=== PATIENT | female | born 1935 | race Caucasian/White ===

== ENCOUNTER 2019-04-02 16:34 | Inpatient (IN) | payer MEDICARE, MEDICAID ==
[~2019-04-02] VITALS: Ht 157.5 cm; Wt 71.2 kg
[~2019-04-02 16:34] MED LIST: AMLO5TAB10 PO; ATOR40TA59 PO; CELE200C PO; CLON0.1T12 PO; CLOP75TA PO; ERGO500027 PO; FERR325T14 PO; HYDR-2765 PO; HYDR-2869 PO; LISI-334 PO; MULT1CAP15 PO; NAPR-677 PO; POLY17PO29 PO; SENN-22 PO; WARF-78 PO
--- NOTE | 2019-04-02 17:18 | PHYS DOC ---
Past Medical History Smoking Status: Never Smoker Adult General Chief Complaint Chief Complaint: LOWER EXT PAIN HPI HPI Patient is a 83 year old female who presents with a two-day she woke up and her left leg was swollen and purple mottled in color. Patient rates her pain a 5 out of 10. She states the whole leg is aching. Review of Systems Review of Systems Musculoskeletal: Left leg pain and swelling. Denies back pain or joint pain [] All other systems were reviewed and found to be within normal limits, except as documented in this note. Allergies Allergies Allergies Coded Allergies Type Severity Reaction Last Updated Verified meperidine Adverse Reaction Intermediate Nausea and Vomiting 04/28/15 Yes Physical Exam Physical Exam Constitutional: Well developed, well nourished, no acute distress, non-toxic appearance. [] HENT: Normocephalic, atraumatic, bilateral external ears normal, oropharynx moist, no oral exudates, nose normal. [] Eyes: PERRLA, EOMI, conjunctiva normal, no discharge. [] Neck: Normal range of motion, no tenderness, supple, no stridor. [] Cardiovascular:Heart rate regular rhythm, no murmur [] Lungs & Thorax: Bilateral breath sounds clear to auscultation [] Abdomen: Bowel sounds normal, soft, no tenderness, no masses, no pulsatile ma sses. [] Skin: Left leg purple and mottled. Bilateral lower feet cold. Warm, dry, no erythema, no rash. [] Back: No tenderness, no CVA tenderness. [] Extremities: Left leg tenderness, no cyanosis, no clubbing, ROM intact, no edema. [] Neurologic: Alert and oriented X 3, normal motor function, normal sensory fun ction, no focal deficits noted. [] Psychologic: Affect normal, judgement normal, mood normal. [] Current Patient Data Vital Signs Vital Signs Date Time Temp Pulse Resp B/P (MAP) Pulse Ox O2 Delivery O2 Flow Rate FiO2 04/02/19 19:02 60 16 181/77 (111) 98 Room Air 04/02/19 17:10 97.8 97.8 Lab Values Laboratory Tests Test 04/02/19 17:34 White Blood Count 6.2 x10^3/uL (4.0-11.0) Red Blood Count 4.58 x10^6/uL (3.50-5.40) Hemoglobin 13.6 g/dL (12.0-15.5) Hematocrit 41.0 % (36.0-47.0) Mean Corpuscular Volume 90 fL (79-100) Mean Corpuscular Hemoglobin 30 pg (25-35) Mean Corpuscular Hemoglobin Concent 33 g/dL (31-37) Red Cell Distribution Width 14.3 % (11.5-14.5) Platelet Count 190 x10^3/uL (140-400) Neutrophils (%) (Auto) 70 % (31-73) Lymphocytes (%) (Auto) 19 % (24-48) L Monocytes (%) (Auto) 9 % (0-9) Eosinophils (%) (Auto) 1 % (0-3) Basophils (%) (Auto) 1 % (0-3) Neutrophils # (Auto) 4.3 x10^3/uL (1.8-7.7) Lymphocytes # (Auto) 1.2 x10^3/uL (1.0-4.8) Monocytes # (Auto) 0.6 x10^3/uL (0.0-1.1) Eosinophils # (Auto) 0.1 x10^3/uL (0.0-0.7) Basophils # (Auto) 0.1 x10^3/uL (0.0-0.2) Prothrombin Time 12.6 SEC (11.7-14.0) Prothrombin Time INR 1.0 (0.8-1.1) Sodium Level 139 mmol/L (136-145) Potassium Level 4.1 mmol/L (3.5-5.1) Chloride Level 103 mmol/L (98-107) Carbon Dioxide Level 26 mmol/L (21-32) Anion Gap 10 (6-14) Blood Urea Nitrogen 23 mg/dL (7-20) H Creatinine 1.1 mg/dL (0.6-1.0) H Estimated GFR (Cockcroft-Gault) 47.7 BUN/Creatinine Ratio 21 (6-20) H Glucose Level 109 mg/dL (70-99) H Calcium Level 10.3 mg/dL (8.5-10.1) H Total Bilirubin 0.6 mg/dL (0.2-1.0) Aspartate Amino Transferase (AST) 20 U/L (15-37) Alanine Aminotransferase (ALT) 9 U/L (14-59) L Alkaline Phosphatase 107 U/L (46-116) Total Protein 7.8 g/dL (6.4-8.2) Albumin 3.2 g/dL (3.4-5.0) L Albumin/Globulin Ratio 0.7 (1.0-1.7) L Laboratory Tests 04/02/19 17:34 Laboratory Tests 04/02/19 17:34 EKG EKG [] Radiology/Procedures Radiology/Procedures [] Impressions: [facility] [address] [place] [address] IMAGING REPORT Signed PATIENT: GEORGE DUQUE ACCOUNT: [id number] : 1935 LOCATION: ER AGE: 83 SEX: F EXAM STATUS: REG ER ORD. PHYSICIAN: ALICJA FORTUNE APRN REASON: leg swelling, discolration PROCEDURE: ARTERIAL STUDY LOWER EXT BI LOWER EXTREMITY DUPLEX ARTERY ULTRASOUND Indication: Leg swelling and discoloration Comparison: None. Procedure: Arterial 2D and duplex images are obtained of the lower extremity arteries. Findings: Biphasic or triphasic waveforms are present in the common femoral artery, superficial femoral artery, popliteal artery, anterior tibial artery, posterior tibial artery and dorsalis pedis artery. The distal posterior tibial artery was not well visualized due to mural calcification. IMPRESSION: No hemodynamically significant stenosis. EXAM: Bilateral lower extremity venous Doppler. HISTORY: Leg swelling and discoloration COMPARISON: None. FINDINGS: Grayscale and Doppler analysis of the both lower extremity deep venous systems was performed with graded compression and augmentation. The common femoral, greater saphenous, superficial femoral, popliteal and calf veins were assessed. There is evidence of occlusive deep venous thrombosis. IMPRESSION: 1. Occlusive DVT in the entire left lower extremity venous system from the common femoral vein down to the segmental and visualized calf veins. FOR INTERNAL CODING PURPOSES Critical result: Findings discussed with ALICJA FORTUNE at 04/02/2019 8:04 PM. RESULT CODE: (C) Electronically signed by: Karma Jacob MD (04/02/2019 8:04 PM) [id number] DICTATED and SIGNED BY: KARMA JACOB MD DATE: 04/02/192003 Course & Med Decision Making Course & Med Decision Making Pertinent Labs and Imaging studies reviewed. (See chart for details) Patient denies blood thinners, injury, fall, shortness of breath, chest pain, headache, dizziness, visual changes, weakness, numbness or tingling, abdominal pain, nausea, vomiting, fevers. Patient's left leg is 3+ edematous to mid thigh to foot. Bilateral feet are cold to touch. Right leg is normal skin toned. Effected leg skin in blanchable and pedal pulse is felt. The leg is purple and mottled in color. 3 second cap refill. Lungs are clear to auscultation. When getting patient into the bed she was unable to get herself into the bed. 2 nurses had to get the patient into the bed. Patient states she uses a wheel chair often but states she was using a walker some 2 days ago before this leg swelling and pain occurred. Patient is alert and oriented. Speaks in full clear sentences. PERRLA. Patient is a poor historian. IMPRESSION: 1. Occlusive DVT in the entire left lower extremity venous system from the common femoral vein down to the segmental and visualized calf veins. Patient admitted by Dr Still. Heparin started per Heparin protocol. [] Dragon Disclaimer Dragon Disclaimer This electronic medical record was generated, in whole or in part, using a voice recognition dictation system. Departure Departure Impression: Primary Impression: DVT (deep venous thrombosis) Disposition: ADMITTED INPATIENT Admitting Physician: HIMGissel Condition: STABLE Referrals: UNKNOWN PCP NAME (PCP) Problem Qualifiers Primary Impression: DVT (deep venous thrombosis) DVT location: lower extremity Affected thrombotic vein of extremity: femoral Chronicity: acute Laterality: left Qualified Codes: I82.412 - Acute embolism and thrombosis of left femoral vein ALICJA FORTUNE STRIPING MACHINE OPERATOR Apr 02, 2019 17:18
[2019-04-02 17:41] LABS: BASO # 0.1 x10^3/uL (0.0-0.2); BASO % 1 % (0-3); EOS # 0.1 x10^3/uL (0.0-0.7); EOS % 1 % (0-3); HEMOGLOBIN 13.6 g/dL (12.0-15.5); LYMPH # 1.2 x10^3/uL (1.0-4.8); LYMPH % 19 % (24-48); MEAN CORPUSCULAR HEMOGLOBIN 30 pg (25-35); MEAN CORPUSCULAR HGB CONC 33 g/dL (31-37); MEAN CORPUSCULAR VOLUME 90 fL (79-100); MONO # 0.6 x10^3/uL (0.0-1.1); MONO % 9 % (0-9); NEUT # 4.3 x10^3/uL (1.8-7.7); NEUT % 70 % (31-73); PLATELET COUNT 190 x10^3/uL (140-400); RED BLOOD COUNT 4.58 x10^6/uL (3.50-5.40); RED CELL DISTRIBUTION WIDTH 14.3 % (11.5-14.5); WHITE BLOOD COUNT 6.2 x10^3/uL (4.0-11.0)
[2019-04-02 17:49] LABS: PROTHROMBIN TIME PATIENT 12.6 SEC (11.7-14.0)
[2019-04-02 18:12] LABS: ALBUMIN 3.2 g/dL (3.4-5.0); ALBUMIN/GLOBULIN RATIO 0.7 (1.0-1.7); CALCIUM 10.3 mg/dL (8.5-10.1); CREATININE 1.1 mg/dL (0.6-1.0); GFR 47.7; POTASSIUM 4.1 mmol/L (3.5-5.1); TOTAL BILIRUBIN 0.6 mg/dL (0.2-1.0); TOTAL PROTEIN 7.8 g/dL (6.4-8.2)
--- NOTE | 2019-04-02 20:07 | RAD ---
LOWER EXTREMITY DUPLEX ARTERY ULTRASOUND Indication: Leg swelling and discoloration Comparison: None. Procedure: Arterial 2D and duplex images are obtained of the lower extremity arteries. Findings: Biphasic or triphasic waveforms are present in the common femoral artery, superficial femoral artery, popliteal artery, anterior tibial artery, posterior tibial artery and dorsalis pedis artery. The distal posterior tibial artery was not well visualized due to mural calcification. IMPRESSION: No hemodynamically significant stenosis. EXAM: Bilateral lower extremity venous Doppler. HISTORY: Leg swelling and discoloration COMPARISON: None. FINDINGS: Grayscale and Doppler analysis of the both lower extremity deep venous systems was performed with graded compression and augmentation. The common femoral, greater saphenous, superficial femoral, popliteal and calf veins were assessed. There is evidence of occlusive deep venous thrombosis. IMPRESSION: 1. Occlusive DVT in the entire left lower extremity venous system from the common femoral vein down to the segmental and visualized calf veins. FOR INTERNAL CODING PURPOSES Critical result: Findings discussed with ALICJA FORTUNE at 04/02/2019 8:04 PM. RESULT CODE: (C) Electronically signed by: Essie Jacob MD (04/02/2019 8:04 PM) [id number]
[2019-04-02] MEDS ORDERED: HEPARIN for IV BOLUS 10,000 UNIT/10 ML VIAL. IV PRN ×2 (20:15)
[2019-04-02] MEDS ORDERED: fentaNYL PF VIAL 100 MCG/2 ML VIAL IV PRN (20:30)
[2019-04-02] MEDS ORDERED: ONDANSETRON PF 4 MG/2 ML VIAL. IV PRN (20:30)
[2019-04-02] MEDS ORDERED: HEPARIN for IV BOLUS 10,000 UNIT/10 ML VIAL. IV ONE (21:15)
[2019-04-02] MEDS: HEPARIN 25,000UTS/250ML PREMIX 250 ML IV PRN (21:41)
--- NOTE | 2019-04-02 22:30 | NUR ---
A 83 Y.O. FEMALE ADMITTED WITH DVT TO LEFT LEG, HEPARIN GTT INFUSING PER ORDER. PT ALERT WITH SOME FORGETFULNESS. PT ASSESSED, ADMISSION PACKET GIVEN. PLAN OF CARE EXPLAINED TO PT. PT LEFT LEG NOTED TO BE RED, SWOLLEN WITH SOME DISCOLORATION, POSITIVE PEDAL AND TIBIAL PULSES NOTED TO BILAT LWR EXTR. CONSULT CALLED TO DR BEYER. PT C/O BURNING WITH URINATION DR CORONA NOTIFIED. CALL LIGHT IN PLACE WILL CONT TO MONITOR PT STATUS AND SAFETY. PMRN
[2019-04-02 22:55] VITALS: BP 206/88
[2019-04-02] MEDS ORDERED: FERROUS SULFATE 325 MG TABLET. PO PRN (23:30)
[2019-04-02] MEDS ORDERED: CIPROFLOXACIN HCL 250 MG TABLET. PO ONE (23:45)
[2019-04-02] MEDS ORDERED: hydrALAZINE 20 MG/ML VIAL. IVP PRN (23:45)
[2019-04-02] MEDS ORDERED: CELECOXIB 100 MG CAPSULE. PO ONE (23:45)
[2019-04-03 03:44] VITALS: BP 124/60
[2019-04-03 07:11] VITALS: BP 137/65
[2019-04-03] MEDS: MULTIVITAMIN with MINERAL TABLET. PO SCH (08:47)
[2019-04-03] MEDS: SENNOSIDES/DOCUSATE 8.6/50MG TABLET. PO SCH (08:47)
[2019-04-03] MEDS: amLODIPine BESYLATE 5 MG TABLET PO SCH ×2 (08:47→21:04)
[2019-04-03] MEDS: CIPROFLOXACIN HCL 250 MG TABLET. PO SCH ×2 (08:47→21:01)
[2019-04-03] MEDS: CLOPIDOGREL BISULFATE 75 MG TABLET PO SCH (08:47)
[2019-04-03] MEDS: LISINOPRIL 20 MG TABLET PO SCH ×2 (08:48→21:11)
[2019-04-03] MEDS: POLYETHYLENE GLYCOL 3350 17 GM PACKET. PO SCH (08:48)
[2019-04-03] MEDS ORDERED: cloNIDine HCL 0.1 MG TABLET PO SCH (09:00)
[2019-04-03 10:16] VITALS: BP 89/44
--- NOTE | 2019-04-03 12:16 | HP ---
ADMIT DATE: 04/02/2019 CHIEF COMPLAINT: Left lower extremity pain and swelling. HISTORY OF PRESENT ILLNESS: The patient is a pleasant 83-year-old female who presents with left lower extremity pain and swelling. It has been occurring for a couple of days, rated pain at 6/10, worse with moving, better with sitting still. She took some [id number] meds, but that did not help, describes as agonizing. We did some imaging in the ER. She has an extensive DVT. We are going to admit the patient and consult Vascular Surgery. PAST MEDICAL HISTORY: Anemia, chronic anticoagulation, hyperlipidemia, hypertension, arthritis, chronic pain, constipation. ALLERGIES: MEPERIDINE. FAMILY HISTORY: Coronary artery disease. SOCIAL HISTORY: She does not drink, smoke or take drugs. MEDICATIONS: Reviewed, please refer to the MRAD. She is on Coumadin, Plavix, iron, clonidine, atorvastatin, amlodipine, hydralazine, lisinopril, Celebrex, hydrocodone, MiraLax, senna and vitamins. REVIEW OF SYSTEMS: REVIEW OF SYSTEMS: GENERAL: No history of weight change, weakness or fevers. SKIN: No bruising, hair changes or rashes. EYES: No blurred, double or loss of vision. NOSE AND THROAT: No history of nosebleeds, hoarseness or sore throat. HEART: No history of palpitations, chest pain or shortness of breath on exertion. LUNGS: Denies cough, hemoptysis, wheezing or shortness of breath. GASTROINTESTINAL: Denies changes in appetite, nausea, vomiting, diarrhea or constipation. GENITOURINARY: No history of frequency, urgency, hesitancy or nocturia. NEUROLOGIC: Denies history of numbness, tingling, tremor or weakness. PSYCHIATRIC: No history of panic, anxiety or depression. ENDOCRINE: No history of heat or cold intolerance, polyuria or polydipsia. EXTREMITIES: She complains of left leg pain and swelling. PHYSICAL EXAMINATION: VITALS: Within normal limits and are stable. GENERAL: No apparent distress. Alert and oriented. HEENT: Normal cephalic atraumatic, external auditory canals are patent. EYES: Extraocular muscles are intact, pupils are equally round and reactive to light and accommodation. MUSCULOSKELETAL: Well developed, well nourished, good range of motion. ENDOCRINE: No thyromegaly was palpated. LYMPHATICS: No cervical chain or axillary nodes were noted. HEMATOPOIETIC: No bruising. NECK: Supple, no JVD, no thyromegaly was noted. LUNGS: Clear to auscultation in all lung schuster without rhonchi or wheezing. HEART: RRR, S1, S2 present. Peripheral pulses intact, no obvious murmurs were noted. ABDOMEN: Soft, nontender. Positive bowel sounds no organomegaly, normal bowel sounds. EXTREMITIES: Without any cyanosis, clubbing, or edema. Pedal pulses intact, Homans sign is negative. NEUROLOGIC: Normal speech, normal tone. A and O x 3, moves all extremities, no obvious focal deficits. PSYCHIATRIC: Normal affect, normal mood. Stable. SKIN: No ulcerations or rashes, good skin turgor, no jaundice. VASCULAR: Good capillary refill, neurovascular bundle appears to be intact. EXTREMITIES: Left leg is swollen and painful. Homans sign is positive. LABORATORY DATA: White count 6, hemoglobin 13, platelets 190. Electrolytes normal other than BUN of 23 and creatinine of 1.1. INR is 1. ASSESSMENT AND PLAN: Extensive deep venous thrombosis. The patient has been admitted. We will start anticoagulation, consult Vascular Surgery. Home medications, gentle physical therapy, occupational therapy, IV hydration, full code, p.r.n. fentanyl. Trend labs, lower extremity arterial studies. Prognosis guarded. Also consult Hematology. CHRISTIE CORONA DO DR: TIFFNAI/deric JOB#: [id number] / [id number]
--- NOTE | 2019-04-03 13:23 | NUR ---
SS following for discharge planning. SS reviewed pt chart. Pt is from home and is currently on room air. Per pt's RN, pt will need long-term unit. SS requested PT/OT orders. SS will continue to follow for discharge planning.
[2019-04-03 14:51] VITALS: BP 110/56
[2019-04-03] MEDS: ANTI-COAG MONITOR BY PHARMACY. MC PRN (14:51)
--- NOTE | 2019-04-03 15:14 | PDOC2 ---
CONSULT Date of Consult Date of Consult DATE: 04/03/19 TIME: 15:11 Reason for Consult Reason for Consult: Left leg DVT Referring Physician Referring Physician: Dr Still Identification/Chief Complaint Chief Complaint Left leg pain and swelling Source Source: Chart review, Patient History of Present Illness Reason for Visit: Patient is a very nice 83-year-old woman who was supposed to be on oral anticoagulation with Coumadin and apparently stopped. She presented to her primary care with the left leg pain swelling and discoloration and no sent to emergency room. She was found to have a left lower extremity DVT that was felt to be rather extensive extending up to the common femoral vein. She was admitted on a heparin drip. We've been asked to give her input on this. At the time of my evaluation she is on heparin, she is lying in bed very comfortable, has no complaints. She denies any pain, paresthesias, weakness in the left lower extremity. She does state that her left leg is have some slight discomfort but is not significantly painful. This is apparently improved since admission and initiation of heparin. Past Medical History Past Medical History History of anticoagulation, unknown reason, Cardiovascular: HTN Pulmonary: No pertinent hx GI: Constipation Musculoskeletal: Osteoarthritis Family History Family History: Coronary Artery Disease Social History No ALCOHOL: none Drugs: None Current Problem List Problem List Problems Medical Problems: (1) DVT (deep venous thrombosis) Status: Acute Current Medications Current Medications Current Medications Heparin Sodium/ Dextrose 250 ml @ 0 mls/hr CONT PRN IV PER PROTOCOL Last administered on 04/02/19at 21:41; Start 04/02/19 at 20:15 Heparin Sodium (Porcine) (Heparin Sodium) 2,450 unit PRN Q6HRS PRN IV FOR UFH LEVEL LESS THAN 0.2; Start 04/02/19 at 20:15 Heparin Sodium (Porcine) (Heparin Sodium) 1,200 unit PRN Q6HRS PRN IV FOR UFH LEVEL 0.2 - 0.29; Start 04/02/19 at 20:15 Ondansetron HCl (Zofran) 4 mg PRN Q8HRS PRN IV NAUSEA/VOMITING; Start 04/02/19 at 20:30; Stop 04/03/19 at 20:29 Fentanyl Citrate (Fentanyl 2ml Vial) 50 mcg PRN Q1HR PRN IV PAIN; Start 04/02/19 at 20:30; Stop 04/03/19 at 20:29 Heparin Sodium (Porcine) (Heparin Sodium) 6,500 unit 1X ONCE IV Last administered on 04/02/19 21:27; Start 04/02/19 at 21:15; Stop 04/02/19 at 21:16; Status DC Amlodipine Besylate (Norvasc) 5 mg BID PO Last administered on 04/03/19 08:47; Start 04/03/19 at 09:00 Atorvastatin Calcium (Lipitor) 40 mg HS PO ; Start 04/03/19 at 21:00 Clonidine HCl (Catapres) 0.2 mg DAILY PO Last administered on 04/03/19 08:47; Start 04/03/19 at 09:00 Clopidogrel Bisulfate (Plavix) 75 mg DAILY PO Last administered on 04/03/19 08:47; Start 04/03/19 at 09:00 Ergocalciferol (Vitamin D2) 100,000 unit WEEKLY PO ; Start 04/09/19 at 09:00 Ferrous Sulfate (Feosol) 325 mg TID PRN PRN PO IRON REPLACEMENT; Start 04/02/19 at 23:30 Hydralazine HCl (Apresoline) 50 mg BID PO Last administered on 04/03/19 08:48; Start 04/03/19 at 09:00 Acetaminophen/ Hydrocodone Bitart (Lortab 7.5/325) 1 tab PRN Q3HRS PRN PO PAIN; Start 04/02/19 at 23:30 Lisinopril (Prinivil) 20 mg BID PO Last administered on 04/03/19 08:48; Start 04/03/19 at 09:00 Polyethylene Glycol (miraLAX PACKET) 17 gm DAILY PO Last administered on 04/03/19 08:48; Start 04/03/19 at 09:00 Senna/Docusate Sodium (Senna Plus) 1 tab DAILY PO Last administered on 04/03/19 08:47; Start 04/03/19 at 09:00 Celecoxib (CeleBREX) 200 mg 1X ONCE PO Last administered on 04/03/19at 00:07; Start 04/02/19 at 23:45; Stop 04/02/19 at 23:49; Status DC Multivitamins (Thera M Plus) 1 tab DAILY PO Last administered on 2/20/20at 08:47; Start 04/03/19 at 09:00 Hydralazine HCl (Apresoline Inj) 10 mg PRN Q6HRS PRN IVP ELEVATED BP, SEE COMMENTS; Start 04/02/19 at 23:45 Ciprofloxacin (Cipro) 500 mg BID PO Last administered on 04/03/19at 08:47; Start 04/03/19 at 09:00 Ciprofloxacin (Cipro) 500 mg 1X ONCE PO Last administered on 04/03/19at 00:08; Start 04/02/19 at 23:45; Stop 04/02/19 at 23:46; Status DC Hydralazine HCl (Apresoline) 50 mg 1X ONCE PO Last administered on 04/03/19at 00:08; Start 04/02/19 at 23:45; Stop 04/02/19 at 23:46; Status DC Info (Anti-Coagulation Monitoring By Pharmacy) 1 each PRN DAILY PRN MC SEE COMMENTS Last administered on 04/03/19at 14:51; Start 04/03/19 at 15:00 Active Scripts Active Hydrocodone-Apap 7.5-325 (Hydrocodone Bit/Acetaminophen) 1 Each Tablet 1 Tab PO PRN Q3HRS PRN 30 Days Senna-Time S Tablet (Sennosides/Docusate Sodium) 1 Each Tablet 1 Tab PO DAILY 30 Days Reported Celebrex (Celecoxib) 200 Mg Capsule 1 Cap PO 1X Coumadin (Warfarin Sodium) 5 Mg Tablet 1 Tab PO 1X Multivitamins (Multivitamin) 1 Each Capsule 1 Each PO DAILY Ferrous Sulfate 325 Mg Tablet 325 Mg PO TID PRN Miralax (Polyethylene Glycol 3350) 17 Gm Powd.pack 1 Pkt PO DAILY Catapres (Clonidine Hcl) 0.1 Mg Tablet 0.2 Mg PO DAILY Vitamin D2 (Ergocalciferol (Vitamin D2)) 50,000 Unit Capsule 100,000 Unit PO WEEKLY Lisinopril 20 Mg Tablet 20 Mg PO BID Hydralazine Hcl 50 Mg Tablet 50 Mg PO BID Clopidogrel (Clopidogrel Bisulfate) 75 Mg Tablet 75 Mg PO DAILY Amlodipine Besylate 5 Mg Tablet 5 Mg PO BID Atorvastatin Calcium 40 Mg Tablet 40 Mg PO HS Allergies Allergies: Coded Allergies: meperidine (Verified Adverse Reaction, Intermediate, Nausea and Vomiting, 04/28/15) Physical Exam Physical Exam Left lower extremity with circumfrential edema, mild discoloration but normal brisk cap refill, no paresthesias, no pain, thigh and calf soft, non-tender to firm palpation good motor function of the toes and feet General: Alert, Oriented X3 HEENT: Atraumatic Lungs: Clear to auscultation, Normal air movement Heart: Regular rate, No murmurs Abdomen: Normal bowel sounds, Soft Extremities: No clubbing Psych/Mental Status: Mental status NL MUSCULOSKELETAL: No joint tenderness Vitals VITALS Vital Signs Date Time Temp Pulse Resp B/P (MAP) Pulse Ox O2 Delivery O2 Flow Rate FiO2 04/03/19 14:51 97.7 66 18 110/56 (74) 98 Room Air 97.7 Labs Labs Laboratory Tests Test 04/02/19 17:34 04/03/19 03:45 04/03/19 13:45 White Blood Count 6.2 x10^3/uL (4.0-11.0) Red Blood Count 4.58 x10^6/uL (3.50-5.40) Hemoglobin 13.6 g/dL (12.0-15.5) Hematocrit 41.0 % (36.0-47.0) Mean Corpuscular Volume 90 fL (79-100) Mean Corpuscular Hemoglobin 30 pg (25-35) Mean Corpuscular Hemoglobin Concent 33 g/dL (31-37) Red Cell Distribution Width 14.3 % (11.5-14.5) Platelet Count 190 x10^3/uL (140-400) Neutrophils (%) (Auto) 70 % (31-73) Lymphocytes (%) (Auto) 19 % (24-48) Monocytes (%) (Auto) 9 % (0-9) Eosinophils (%) (Auto) 1 % (0-3) Basophils (%) (Auto) 1 % (0-3) Neutrophils # (Auto) 4.3 x10^3/uL (1.8-7.7) Lymphocytes # (Auto) 1.2 x10^3/uL (1.0-4.8) Monocytes # (Auto) 0.6 x10^3/uL (0.0-1.1) Eosinophils # (Auto) 0.1 x10^3/uL (0.0-0.7) Basophils # (Auto) 0.1 x10^3/uL (0.0-0.2) Prothrombin Time 12.6 SEC (11.7-14.0) Prothromb Time International Ratio 1.0 (0.8-1.1) Sodium Level 139 mmol/L (136-145) Potassium Level 4.1 mmol/L (3.5-5.1) Chloride Level 103 mmol/L (98-107) Carbon Dioxide Level 26 mmol/L (21-32) Anion Gap 10 (6-14) Blood Urea Nitrogen 23 mg/dL (7-20) Creatinine 1.1 mg/dL (0.6-1.0) Estimated GFR (Cockcroft-Gault) 47.7 BUN/Creatinine Ratio 21 (6-20) Glucose Level 109 mg/dL (70-99) Calcium Level 10.3 mg/dL (8.5-10.1) Total Bilirubin 0.6 mg/dL (0.2-1.0) Aspartate Amino Transf (AST/SGOT) 20 U/L (15-37) Alanine Aminotransferase (ALT/SGPT) 9 U/L (14-59) Alkaline Phosphatase 107 U/L (46-116) Total Protein 7.8 g/dL (6.4-8.2) Albumin 3.2 g/dL (3.4-5.0) Albumin/Globulin Ratio 0.7 (1.0-1.7) Heparin Anti-Xa Act, Unfractionated 0.63 IU/mL (0.30-0.70) 0.41 IU/mL (0.30-0.70) Laboratory Tests Test 04/02/19 17:34 04/03/19 03:45 04/03/19 13:45 White Blood Count 6.2 x10^3/uL (4.0-11.0) Red Blood Count 4.58 x10^6/uL (3.50-5.40) Hemoglobin 13.6 g/dL (12.0-15.5) Hematocrit 41.0 % (36.0-47.0) Mean Corpuscular Volume 90 fL (79-100) Mean Corpuscular Hemoglobin 30 pg (25-35) Mean Corpuscular Hemoglobin Concent 33 g/dL (31-37) Red Cell Distribution Width 14.3 % (11.5-14.5) Platelet Count 190 x10^3/uL (140-400) Neutrophils (%) (Auto) 70 % (31-73) Lymphocytes (%) (Auto) 19 % (24-48) Monocytes (%) (Auto) 9 % (0-9) Eosinophils (%) (Auto) 1 % (0-3) Basophils (%) (Auto) 1 % (0-3) Neutrophils # (Auto) 4.3 x10^3/uL (1.8-7.7) Lymphocytes # (Auto) 1.2 x10^3/uL (1.0-4.8) Monocytes # (Auto) 0.6 x10^3/uL (0.0-1.1) Eosinophils # (Auto) 0.1 x10^3/uL (0.0-0.7) Basophils # (Auto) 0.1 x10^3/uL (0.0-0.2) Prothrombin Time 12.6 SEC (11.7-14.0) Prothromb Time International Ratio 1.0 (0.8-1.1) Sodium Level 139 mmol/L (136-145) Potassium Level 4.1 mmol/L (3.5-5.1) Chloride Level 103 mmol/L (98-107) Carbon Dioxide Level 26 mmol/L (21-32) Anion Gap 10 (6-14) Blood Urea Nitrogen 23 mg/dL (7-20) Creatinine 1.1 mg/dL (0.6-1.0) Estimated GFR (Cockcroft-Gault) 47.7 BUN/Creatinine Ratio 21 (6-20) Glucose Level 109 mg/dL (70-99) Calcium Level 10.3 mg/dL (8.5-10.1) Total Bilirubin 0.6 mg/dL (0.2-1.0) Aspartate Amino Transf (AST/SGOT) 20 U/L (15-37) Alanine Aminotransferase (ALT/SGPT) 9 U/L (14-59) Alkaline Phosphatase 107 U/L (46-116) Total Protein 7.8 g/dL (6.4-8.2) Albumin 3.2 g/dL (3.4-5.0) Albumin/Globulin Ratio 0.7 (1.0-1.7) Heparin Anti-Xa Act, Unfractionated 0.63 IU/mL (0.30-0.70) 0.41 IU/mL (0.30-0.70) Images Images I reviewed the left leg duplex . Occlusive DVT in the entire left lower extremity venous system from the common femoral vein down to the segmental and visualized calf veins. Assessment/Plan Assessment/Plan 83 y/o woman off anticoagulation with extensive left leg DVT She is improving with anticoagulation, no evidence of phlegmasia Given her age I would not recommend catheter directed lysis. continue heparin drip and transition back to oral anticoagulation elevation and compression of the leg are OK No surgical intervention recommended. SANDRA NIELSEN MD Apr 03, 2019 15:14
[2019-04-03] MEDS: HEPARIN 25,000UTS/250ML PREMIX 250 ML IV PRN (15:16)
[2019-04-03 19:00] VITALS: BP 129/61
[2019-04-03] MEDS: LACTOBACILLUS RHAMNOSUS GG 1 CAPSULE. PO SCH (21:01)
[2019-04-03] MEDS: ATORVASTATIN CALCIUM 40 MG TABLET. PO SCH (21:02)
[2019-04-03 23:00] VITALS: BP 136/64
[2019-04-04 03:20] VITALS: BP 132/69
[2019-04-04 04:02] LABS: HEMATOCRIT 32.4 % (36.0-47.0); HEMOGLOBIN 11.2 g/dL (12.0-15.5); RED BLOOD COUNT 3.67 x10^6/uL (3.50-5.40); RED CELL DISTRIBUTION WIDTH 14.3 % (11.5-14.5); WHITE BLOOD COUNT 5.4 x10^3/uL (4.0-11.0)
[2019-04-04 07:00] VITALS: BP 160/71
[2019-04-04] MEDS: ANTI-COAG MONITOR BY PHARMACY. MC PRN (08:50)
[2019-04-04] MEDS: LISINOPRIL 20 MG TABLET PO SCH ×2 (09:13→21:01)
[2019-04-04] MEDS: MULTIVITAMIN with MINERAL TABLET. PO SCH (09:13)
[2019-04-04] MEDS: amLODIPine BESYLATE 5 MG TABLET PO SCH ×2 (09:13→21:01)
[2019-04-04] MEDS: CIPROFLOXACIN HCL 250 MG TABLET. PO SCH ×2 (09:13→21:00)
[2019-04-04] MEDS: SENNOSIDES/DOCUSATE 8.6/50MG TABLET. PO SCH (09:14)
[2019-04-04] MEDS: LACTOBACILLUS RHAMNOSUS GG 1 CAPSULE. PO SCH ×2 (09:14→21:02)
[2019-04-04] MEDS: CLOPIDOGREL BISULFATE 75 MG TABLET PO SCH (09:14)
[2019-04-04] MEDS: POLYETHYLENE GLYCOL 3350 17 GM PACKET. PO SCH (09:14)
--- NOTE | 2019-04-04 09:24 | PDOC2 ---
CONSULT Date of Consult Date of Consult DATE: 04/04/19 TIME: 09:14 HEMATOLOGY ONCOLOGY CONSULTATION REQUESTING PHYSICIAN: primary care REASON FOR CONSULTATION: DVT HISTORY OF PRESENT ILLNESS: The patient is an 83-year-old female with swelling in her left leg extending from the top of the leg to the foot acute and severe and worsened due to DVT and improved with anticoagulation, currently on heparin drip. PAST MEDICAL HISTORY: Hematoma after hip surgery in 2016 with 1 miscarriage, cannot remember early or not Hypertension Hyperlipidemia Anemia Osteoarthritis Left lower extremity fractures Left lower extremity DVT SURGERIES: Hip replacement Appendectomy Ganglion cyst ALL: Demerol MEDS: see attached list FAMILY HISTORY: No known blood clots SOCIAL HISTORY: Lives with her son and grandson, from home, no tobacco or alcohol REVIEW OF SYSTEMS: A 10-point review of system was positive for left lower extremity swelling, pain, no bleeding, numbness in her calves, vision loss, deconditioning, snoring at night, hirsutism,, otherwise rest of the 10 pt system review is negative. PHYSICAL EXAMINATION: GENERAL APPEARANCE: Elderly woman resting in bed, in NAD slight bradycardia, appears in regular rhythm VITAL SIGNS: vitals reviewed HEAD: Atraumatic, normocephalic. Hirsutism. NECK: Supple. nl ROM. no LAD. CHEST: Bilaterally symmetrical, on RA w/o resp distress. ABDOMEN: Soft, nontender. nondist CENTRAL NERVOUS SYSTEM: No focal deficits. A&Ox3 SKIN: No rashes. Age related skin changes. EXT: no c/c though does have LLE edema to at least knee w/ TTP, tr edema RLE PSYCHOLOGIC: pleasant mood and affect LABS: White count 5.4, hemoglobin 11.2, platelets 163 Creatinine 1.1 GFR 47 71 kg RADS: Bilateral lower extremity ultrasounds arterial and venous 02 Apr 2019 showed occlusive DVT entire left lower extremity common femoral vein to calf veins Case discussed w/ pt, records reviewed in [facility], including labs and radiology, please see note for summary details. A/P: She is an 83-year-old female, with new diagnosis of left lower extremity DVT, she denies the use of Coumadin or prior A. fib or prior clotting for me, and currently is on a heparin drip with improvement, has been evaluated by vascular surgery with no surgical intervention needed at this time. LLE DVT: Very reasonable to transition to apixaban, there are reports of prior Coumadin though I'm not sure she was on this in the past? If so could potentiall y do Lovenox twice a day bridging with transition back to Coumadin however if able, her renal function is adequate, would recommend apixaban 10 mg twice a day 1 week followed by 5 mg twice a day 3 months and she can follow-up with us afterwards to discuss duration after initial 3 months, could use lower extremity compression stockings as tolerated and she tells me she has Medicare, we will defer ordering anticoagulation to primary but happy to assist as needed due to this question of previous history of Coumadin? Cardiac history: Defer to primary, would recommend stopping Plavix if safe, with anticoagulation as well as Celebrex was on her home Med list, would discourage use of Celebrex and anticoagulation together disposition: After continued clinical improvement Thank you kindly for this consultation, and please do not hesitate to call with any further questions. Past Medical History Cardiovascular: HTN Pulmonary: No pertinent hx GI: Constipation Musculoskeletal: Osteoarthritis Family History Family History: Coronary Artery Disease Social History No ALCOHOL: none Drugs: None Current Problem List Problem List Problems Medical Problems: (1) DVT (deep venous thrombosis) Status: Acute Current Medications Current Medications Current Medications Heparin Sodium/ Dextrose 250 ml @ 0 mls/hr CONT PRN IV PER PROTOCOL Last administered on 04/03/19at 15:16; Start 04/02/19 at 20:15 Heparin Sodium (Porcine) (Heparin Sodium) 2,450 unit PRN Q6HRS PRN IV FOR UFH LEVEL LESS THAN 0.2; Start 04/02/19 at 20:15 Heparin Sodium (Porcine) (Heparin Sodium) 1,200 unit PRN Q6HRS PRN IV FOR UFH LEVEL 0.2 - 0.29; Start 04/02/19 at 20:15 Ondansetron HCl (Zofran) 4 mg PRN Q8HRS PRN IV NAUSEA/VOMITING; Start 04/02/19 at 20:30; Stop 04/03/19 at 20:29; Status DC Fentanyl Citrate (Fentanyl 2ml Vial) 50 mcg PRN Q1HR PRN IV PAIN; Start 04/02/19 at 20:30; Stop 04/03/19 at 20:29; Status DC Heparin Sodium (Porcine) (Heparin Sodium) 6,500 unit 1X ONCE IV Last administered on 04/02/19 21:27; Start 04/02/19 at 21:15; Stop 04/02/19 at 21:16; Status DC Amlodipine Besylate (Norvasc) 5 mg BID PO Last administered on 04/04/19 09:13; Start 04/03/19 at 09:00 Atorvastatin Calcium (Lipitor) 40 mg HS PO Last administered on 04/03/19 21:02; Start 04/03/19 at 21:00 Clonidine HCl (Catapres) 0.2 mg DAILY PO Last administered on 04/03/19at 08:47; Start 04/03/19 at 09:00 Clopidogrel Bisulfate (Plavix) 75 mg DAILY PO Last administered on 04/04/19 09:14; Start 04/03/19 at 09:00 Ergocalciferol (Vitamin D2) 100,000 unit WEEKLY PO ; Start 04/09/19 at 09:00 Ferrous Sulfate (Feosol) 325 mg TID PRN PRN PO IRON REPLACEMENT; Start 04/02/19 at 23:30 Hydralazine HCl (Apresoline) 50 mg BID PO Last administered on 04/03/19 08:48; Start 04/03/19 at 09:00 Acetaminophen/ Hydrocodone Bitart (Lortab 7.5/325) 1 tab PRN Q3HRS PRN PO PAIN; Start 04/02/19 at 23:30 Lisinopril (Prinivil) 20 mg BID PO Last administered on 04/04/19at 09:13; Start 04/03/19 at 09:00 Polyethylene Glycol (miraLAX PACKET) 17 gm DAILY PO Last administered on 04/04/19 09:14; Start 04/03/19 at 09:00 Senna/Docusate Sodium (Senna Plus) 1 tab DAILY PO Last administered on 04/04/19 09:14; Start 04/03/19 at 09:00 Celecoxib (CeleBREX) 200 mg 1X ONCE PO Last administered on 04/03/19at 00:07; Start 04/02/19 at 23:45; Stop 04/02/19 at 23:49; Status DC Multivitamins (Thera M Plus) 1 tab DAILY PO Last administered on 04/04/19at 09:13; Start 04/03/19 at 09:00 Hydralazine HCl (Apresoline Inj) 10 mg PRN Q6HRS PRN IVP ELEVATED BP, SEE COMMENTS; Start 04/02/19 at 23:45 Ciprofloxacin (Cipro) 500 mg BID PO Last administered on 04/04/19at 09:13; Start 04/03/19 at 09:00 Ciprofloxacin (Cipro) 500 mg 1X ONCE PO Last administered on 04/03/19at 00:08; Start 04/02/19 at 23:45; Stop 04/02/19 at 23:46; Status DC Hydralazine HCl (Apresoline) 50 mg 1X ONCE PO Last administered on 04/03/19at 00:08; Start 04/02/19 at 23:45; Stop 04/02/19 at 23:46; Status DC Info (Anti-Coagulation Monitoring By Pharmacy) 1 each PRN DAILY PRN MC SEE COMMENTS Last administered on 04/04/19at 08:50; Start 04/03/19 at 15:00 Lactobacillus Rhamnosus (Culturelle) 1 cap BID PO Last administered on 04/04/19at 09:14; Start 04/03/19 at 21:00 Active Scripts Active Hydrocodone-Apap 7.5-325 (Hydrocodone Bit/Acetaminophen) 1 Each Tablet 1 Tab PO PRN Q3HRS PRN 30 Days Senna-Time S Tablet (Sennosides/Docusate Sodium) 1 Each Tablet 1 Tab PO DAILY 30 Days Reported Celebrex (Celecoxib) 200 Mg Capsule 1 Cap PO 1X Coumadin (Warfarin Sodium) 5 Mg Tablet 1 Tab PO 1X Multivitamins (Multivitamin) 1 Each Capsule 1 Each PO DAILY Ferrous Sulfate 325 Mg Tablet 325 Mg PO TID PRN Miralax (Polyethylene Glycol 3350) 17 Gm Powd.pack 1 Pkt PO DAILY Catapres (Clonidine Hcl) 0.1 Mg Tablet 0.2 Mg PO DAILY Vitamin D2 (Ergocalciferol (Vitamin D2)) 50,000 Unit Capsule 100,000 Unit PO WEEKLY Lisinopril 20 Mg Tablet 20 Mg PO BID Hydralazine Hcl 50 Mg Tablet 50 Mg PO BID Clopidogrel (Clopidogrel Bisulfate) 75 Mg Tablet 75 Mg PO DAILY Amlodipine Besylate 5 Mg Tablet 5 Mg PO BID Atorvastatin Calcium 40 Mg Tablet 40 Mg PO HS Allergies Allergies: Coded Allergies: meperidine (Verified Adverse Reaction, Intermediate, Nausea and Vomiting, 04/28/15) Vitals VITALS Vital Signs Date Time Temp Pulse Resp B/P (MAP) Pulse Ox O2 Delivery O2 Flow Rate FiO2 04/04/19 09:13 60 04/04/19 07:00 97.8 20 160/71 (100) 97 Room Air 97.8 Labs Labs Laboratory Tests Test 04/02/19 17:34 04/03/19 03:45 04/03/19 13:45 04/04/19 03:30 White Blood Count 6.2 x10^3/uL (4.0-11.0) 5.4 x10^3/uL (4.0-11.0) Red Blood Count 4.58 x10^6/uL (3.50-5.40) 3.67 x10^6/uL (3.50-5.40) Hemoglobin 13.6 g/dL (12.0-15.5) 11.2 g/dL (12.0-15.5) Hematocrit 41.0 % (36.0-47.0) 32.4 % (36.0-47.0) Mean Corpuscular Volume 90 fL (79-100) 88 fL (79-100) Mean Corpuscular Hemoglobin 30 pg (25-35) 31 pg (25-35) Mean Corpuscular Hemoglobin Concent 33 g/dL (31-37) 35 g/dL (31-37) Red Cell Distribution Width 14.3 % (11.5-14.5) 14.3 % (11.5-14.5) Platelet Count 190 x10^3/uL (140-400) 163 x10^3/uL (140-400) Neutrophils (%) (Auto) 70 % (31-73) Lymphocytes (%) (Auto) 19 % (24-48) Monocytes (%) (Auto) 9 % (0-9) Eosinophils (%) (Auto) 1 % (0-3) Basophils (%) (Auto) 1 % (0-3) Neutrophils # (Auto) 4.3 x10^3/uL (1.8-7.7) Lymphocytes # (Auto) 1.2 x10^3/uL (1.0-4.8) Monocytes # (Auto) 0.6 x10^3/uL (0.0-1.1) Eosinophils # (Auto) 0.1 x10^3/uL (0.0-0.7) Basophils # (Auto) 0.1 x10^3/uL (0.0-0.2) Prothrombin Time 12.6 SEC (11.7-14.0) Prothromb Time International Ratio 1.0 (0.8-1.1) Sodium Level 139 mmol/L (136-145) Potassium Level 4.1 mmol/L (3.5-5.1) Chloride Level 103 mmol/L (98-107) Carbon Dioxide Level 26 mmol/L (21-32) Anion Gap 10 (6-14) Blood Urea Nitrogen 23 mg/dL (7-20) Creatinine 1.1 mg/dL (0.6-1.0) Estimated GFR (Cockcroft-Gault) 47.7 BUN/Creatinine Ratio 21 (6-20) Glucose Level 109 mg/dL (70-99) Calcium Level 10.3 mg/dL (8.5-10.1) Total Bilirubin 0.6 mg/dL (0.2-1.0) Aspartate Amino Transf (AST/SGOT) 20 U/L (15-37) Alanine Aminotransferase (ALT/SGPT) 9 U/L (14-59) Alkaline Phosphatase 107 U/L (46-116) Total Protein 7.8 g/dL (6.4-8.2) Albumin 3.2 g/dL (3.4-5.0) Albumin/Globulin Ratio 0.7 (1.0-1.7) Heparin Anti-Xa Act, Unfractionated 0.63 IU/mL (0.30-0.70) 0.41 IU/mL (0.30-0.70) > 1.10 IU/mL (0.30-0.70) Laboratory Tests Test 04/03/19 13:45 04/04/19 03:30 Heparin Anti-Xa Act, Unfractionated 0.41 IU/mL (0.30-0.70) > 1.10 IU/mL (0.30-0.70) White Blood Count 5.4 x10^3/uL (4.0-11.0) Red Blood Count 3.67 x10^6/uL (3.50-5.40) Hemoglobin 11.2 g/dL (12.0-15.5) Hematocrit 32.4 % (36.0-47.0) Mean Corpuscular Volume 88 fL (79-100) Mean Corpuscular Hemoglobin 31 pg (25-35) Mean Corpuscular Hemoglobin Concent 35 g/dL (31-37) Red Cell Distribution Width 14.3 % (11.5-14.5) Platelet Count 163 x10^3/uL (140-400) MIKAELA MULLEN MD Apr 04, 2019 09:24
[2019-04-04 10:11] VITALS: BP 133/63
--- NOTE | 2019-04-04 10:59 | PDOC ---
PROGRESS NOTES History of Present Illness History of Present Illness ASSESSMENT AND PLAN: Extensive deep venous thrombosis. Occlusive DVT in the entire left lower extremity venous system from the common femoral vein down to the segmental and visualized calf veins. bradycardia admitted. anticoagulation, consult Vascular Surgery. No surgical intervention recommended. physical therapy, occupational therapy, IV hydration, full code, p.r.n. fentanyl. Trend labs, lower extremity arterial studies. cvc bed Prognosis guarded. No surgical intervention recommended. consult Hematology. d/w rn Vitals Vitals Vital Signs Date Time Temp Pulse Resp B/P (MAP) Pulse Ox O2 Delivery O2 Flow Rate FiO2 04/04/19 10:11 97.3 64 20 133/63 (86) 98 Room Air 97.3 Physical Exam General: Alert, Oriented X3, No acute distress Heart: Regular rate, No murmurs Abdomen: Normal bowel sounds, Soft Extremities: No clubbing Labs LABS Indication: Leg swelling and discoloration Comparison: None. Procedure: Arterial 2D and duplex images are obtained of the lower extremity arteries. Findings: Biphasic or triphasic waveforms are present in the common femoral artery, superficial femoral artery, popliteal artery, anterior tibial artery, posterior tibial artery and dorsalis pedis artery. The distal posterior tibial artery was not well visualized due to mural calcification. IMPRESSION: No hemodynamically significant stenosis. EXAM: Bilateral lower extremity venous Doppler. HISTORY: Leg swelling and discoloration COMPARISON: None. FINDINGS: Grayscale and Doppler analysis of the both lower extremity deep venous systems was performed with graded compression and augmentation. The common femoral, greater saphenous, superficial femoral, popliteal and calf veins were assessed. There is evidence of occlusive deep venous thrombosis. IMPRESSION: 1. Occlusive DVT in the entire left lower extremity venous system from the common femoral vein down to the segmental and visualized calf veins. FOR INTERNAL CODING PURPOSES Critical result: Findings discussed with ALICJA FORTUNE at 04/02/2019 8:04 PM. RESULT CODE: (C) Laboratory Tests Test 04/03/19 13:45 04/04/19 03:30 Heparin Anti-Xa Act, Unfractionated 0.41 IU/mL (0.30-0.70) > 1.10 IU/mL (0.30-0.70) White Blood Count 5.4 x10^3/uL (4.0-11.0) Red Blood Count 3.67 x10^6/uL (3.50-5.40) Hemoglobin 11.2 g/dL (12.0-15.5) Hematocrit 32.4 % (36.0-47.0) Mean Corpuscular Volume 88 fL (79-100) Mean Corpuscular Hemoglobin 31 pg (25-35) Mean Corpuscular Hemoglobin Concent 35 g/dL (31-37) Red Cell Distribution Width 14.3 % (11.5-14.5) Platelet Count 163 x10^3/uL (140-400) Assessment and Plan Assessmemt and Plan Problems Medical Problems: (1) DVT (deep venous thrombosis) Status: Acute Comment Review of Relevant I have reviewed the following items harriett (where applicable) has been applied. Labs Laboratory Tests Test 04/02/19 17:34 04/03/19 03:45 04/03/19 13:45 04/04/19 03:30 White Blood Count 6.2 x10^3/uL (4.0-11.0) 5.4 x10^3/uL (4.0-11.0) Red Blood Count 4.58 x10^6/uL (3.50-5.40) 3.67 x10^6/uL (3.50-5.40) Hemoglobin 13.6 g/dL (12.0-15.5) 11.2 g/dL (12.0-15.5) Hematocrit 41.0 % (36.0-47.0) 32.4 % (36.0-47.0) Mean Corpuscular Volume 90 fL (79-100) 88 fL (79-100) Mean Corpuscular Hemoglobin 30 pg (25-35) 31 pg (25-35) Mean Corpuscular Hemoglobin Concent 33 g/dL (31-37) 35 g/dL (31-37) Red Cell Distribution Width 14.3 % (11.5-14.5) 14.3 % (11.5-14.5) Platelet Count 190 x10^3/uL (140-400) 163 x10^3/uL (140-400) Neutrophils (%) (Auto) 70 % (31-73) Lymphocytes (%) (Auto) 19 % (24-48) Monocytes (%) (Auto) 9 % (0-9) Eosinophils (%) (Auto) 1 % (0-3) Basophils (%) (Auto) 1 % (0-3) Neutrophils # (Auto) 4.3 x10^3/uL (1.8-7.7) Lymphocytes # (Auto) 1.2 x10^3/uL (1.0-4.8) Monocytes # (Auto) 0.6 x10^3/uL (0.0-1.1) Eosinophils # (Auto) 0.1 x10^3/uL (0.0-0.7) Basophils # (Auto) 0.1 x10^3/uL (0.0-0.2) Prothrombin Time 12.6 SEC (11.7-14.0) Prothromb Time International Ratio 1.0 (0.8-1.1) Sodium Level 139 mmol/L (136-145) Potassium Level 4.1 mmol/L (3.5-5.1) Chloride Level 103 mmol/L (98-107) Carbon Dioxide Level 26 mmol/L (21-32) Anion Gap 10 (6-14) Blood Urea Nitrogen 23 mg/dL (7-20) Creatinine 1.1 mg/dL (0.6-1.0) Estimated GFR (Cockcroft-Gault) 47.7 BUN/Creatinine Ratio 21 (6-20) Glucose Level 109 mg/dL (70-99) Calcium Level 10.3 mg/dL (8.5-10.1) Total Bilirubin 0.6 mg/dL (0.2-1.0) Aspartate Amino Transf (AST/SGOT) 20 U/L (15-37) Alanine Aminotransferase (ALT/SGPT) 9 U/L (14-59) Alkaline Phosphatase 107 U/L (46-116) Total Protein 7.8 g/dL (6.4-8.2) Albumin 3.2 g/dL (3.4-5.0) Albumin/Globulin Ratio 0.7 (1.0-1.7) Heparin Anti-Xa Act, Unfractionated 0.63 IU/mL (0.30-0.70) 0.41 IU/mL (0.30-0.70) > 1.10 IU/mL (0.30-0.70) Laboratory Tests Test 04/03/19 13:45 04/04/19 03:30 Heparin Anti-Xa Act, Unfractionated 0.41 IU/mL (0.30-0.70) > 1.10 IU/mL (0.30-0.70) White Blood Count 5.4 x10^3/uL (4.0-11.0) Red Blood Count 3.67 x10^6/uL (3.50-5.40) Hemoglobin 11.2 g/dL (12.0-15.5) Hematocrit 32.4 % (36.0-47.0) Mean Corpuscular Volume 88 fL (79-100) Mean Corpuscular Hemoglobin 31 pg (25-35) Mean Corpuscular Hemoglobin Concent 35 g/dL (31-37) Red Cell Distribution Width 14.3 % (11.5-14.5) Platelet Count 163 x10^3/uL (140-400) Medications Current Medications Heparin Sodium/ Dextrose 250 ml @ 0 mls/hr CONT PRN IV PER PROTOCOL Last administered on 04/03/19at 15:16; Start 04/02/19 at 20:15 Heparin Sodium (Porcine) (Heparin Sodium) 2,450 unit PRN Q6HRS PRN IV FOR UFH LEVEL LESS THAN 0.2; Start 04/02/19 at 20:15 Heparin Sodium (Porcine) (Heparin Sodium) 1,200 unit PRN Q6HRS PRN IV FOR UFH LEVEL 0.2 - 0.29; Start 04/02/19 at 20:15 Ondansetron HCl (Zofran) 4 mg PRN Q8HRS PRN IV NAUSEA/VOMITING; Start 04/02/19 at 20:30; Stop 04/03/19 at 20:29; Status DC Fentanyl Citrate (Fentanyl 2ml Vial) 50 mcg PRN Q1HR PRN IV PAIN; Start 04/02/19 at 20:30; Stop 04/03/19 at 20:29; Status DC Heparin Sodium (Porcine) (Heparin Sodium) 6,500 unit 1X ONCE IV Last administered on 04/02/19at 21:27; Start 04/02/19 at 21:15; Stop 04/02/19 at 21:16; Status DC Amlodipine Besylate (Norvasc) 5 mg BID PO Last administered on 04/04/19at 09:13; Start 04/03/19 at 09:00 Atorvastatin Calcium (Lipitor) 40 mg HS PO Last administered on 04/03/19 21:02; Start 04/03/19 at 21:00 Clonidine HCl (Catapres) 0.2 mg DAILY PO Last administered on 04/03/19at 08:47; Start 04/03/19 at 09:00 Clopidogrel Bisulfate (Plavix) 75 mg DAILY PO Last administered on 04/04/19 09:14; Start 04/03/19 at 09:00 Ergocalciferol (Vitamin D2) 100,000 unit WEEKLY PO ; Start 04/09/19 at 09:00 Ferrous Sulfate (Feosol) 325 mg TID PRN PRN PO IRON REPLACEMENT; Start 04/02/19 at 23:30 Hydralazine HCl (Apresoline) 50 mg BID PO Last administered on 04/03/19 08:48; Start 04/03/19 at 09:00 Acetaminophen/ Hydrocodone Bitart (Lortab 7.5/325) 1 tab PRN Q3HRS PRN PO PAIN; Start 04/02/19 at 23:30 Lisinopril (Prinivil) 20 mg BID PO Last administered on 04/04/19 09:13; Start 04/03/19 at 09:00 Polyethylene Glycol (miraLAX PACKET) 17 gm DAILY PO Last administered on 04/04/19 09:14; Start 04/03/19 at 09:00 Senna/Docusate Sodium (Senna Plus) 1 tab DAILY PO Last administered on 04/04/19 09:14; Start 04/03/19 at 09:00 Celecoxib (CeleBREX) 200 mg 1X ONCE PO Last administered on 04/03/19 00:07; Start 04/02/19 at 23:45; Stop 04/02/19 at 23:49; Status DC Multivitamins (Thera M Plus) 1 tab DAILY PO Last administered on 04/04/19 09:13; Start 04/03/19 at 09:00 Hydralazine HCl (Apresoline Inj) 10 mg PRN Q6HRS PRN IVP ELEVATED BP, SEE COMMENTS; Start 04/02/19 at 23:45 Ciprofloxacin (Cipro) 500 mg BID PO Last administered on 04/04/19at 09:13; Start 04/03/19 at 09:00 Ciprofloxacin (Cipro) 500 mg 1X ONCE PO Last administered on 04/03/19at 00:08; Start 04/02/19 at 23:45; Stop 04/02/19 at 23:46; Status DC Hydralazine HCl (Apresoline) 50 mg 1X ONCE PO Last administered on 04/03/19at 00:08; Start 04/02/19 at 23:45; Stop 04/02/19 at 23:46; Status DC Info (Anti-Coagulation Monitoring By Pharmacy) 1 each PRN DAILY PRN MC SEE COMMENTS Last administered on 04/04/19at 08:50; Start 04/03/19 at 15:00 Lactobacillus Rhamnosus (Culturelle) 1 cap BID PO Last administered on 04/04/19at 09:14; Start 04/03/19 at 21:00 Active Scripts Active Hydrocodone-Apap 7.5-325 (Hydrocodone Bit/Acetaminophen) 1 Each Tablet 1 Tab PO PRN Q3HRS PRN 30 Days Senna-Time S Tablet (Sennosides/Docusate Sodium) 1 Each Tablet 1 Tab PO DAILY 30 Days Reported Celebrex (Celecoxib) 200 Mg Capsule 1 Cap PO 1X Coumadin (Warfarin Sodium) 5 Mg Tablet 1 Tab PO 1X Multivitamins (Multivitamin) 1 Each Capsule 1 Each PO DAILY Ferrous Sulfate 325 Mg Tablet 325 Mg PO TID PRN Miralax (Polyethylene Glycol 3350) 17 Gm Powd.pack 1 Pkt PO DAILY Catapres (Clonidine Hcl) 0.1 Mg Tablet 0.2 Mg PO DAILY Vitamin D2 (Ergocalciferol (Vitamin D2)) 50,000 Unit Capsule 100,000 Unit PO WEEKLY Lisinopril 20 Mg Tablet 20 Mg PO BID Hydralazine Hcl 50 Mg Tablet 50 Mg PO BID Clopidogrel (Clopidogrel Bisulfate) 75 Mg Tablet 75 Mg PO DAILY Amlodipine Besylate 5 Mg Tablet 5 Mg PO BID Atorvastatin Calcium 40 Mg Tablet 40 Mg PO HS Vitals/I & O Vital Sign - Last 24 Hours 04/03/19 04/03/19 04/03/19 04/03/19 14:51 19:00 20:01 21:00 Temp 97.7 97.6 97.7 97.6 Pulse 66 61 55 Resp 18 16 B/P (MAP) 110/56 (74) 129/61 (83) 129/62 Pulse Ox 98 99 O2 Delivery Room Air Room Air Room Air 04/03/19 04/03/19 04/03/19 04/04/19 21:04 21:11 23:00 03:20 Temp 98.1 97.7 98.1 97.7 Pulse 61 61 51 54 Resp 20 20 B/P (MAP) 129/61 129/61 136/64 (88) 132/69 (90) Pulse Ox 97 98 O2 Delivery Room Air Room Air 04/04/19 04/04/19 04/04/19 04/04/19 07:00 08:00 09:13 09:13 Temp 97.8 97.8 Pulse 52 60 60 Resp 20 B/P (MAP) 160/71 (100) Pulse Ox 97 O2 Delivery Room Air Room Air 04/04/19 10:11 Temp 97.3 97.3 Pulse 64 Resp 20 B/P (MAP) 133/63 (86) Pulse Ox 98 O2 Delivery Room Air Intake and Output 04/03/19 04/03/19 04/04/19 15:00 23:00 07:00 Intake Total 250 ml 600 ml 200 ml Output Total 2 ml Balance 250 ml 600 ml 198 ml ALLISON ERICKSON MD Apr 04, 2019 10:59
[2019-04-04 14:24] VITALS: BP 163/76
[2019-04-04] MEDS: cloNIDine HCL 0.1 MG TABLET PO SCH (15:14)
--- NOTE | 2019-04-04 17:20 | PDOC2 ---
CARDIAC CONSULT DATE OF CONSULT Date of Consult DATE: 04/04/19 TIME: 17:12 REASON FOR CONSULT Reason for Consult: Bradycardia REFERRING PHYSICIAN Referring Physician: Fullbright HISTORY OF PRESENT ILLNESS HISTORY OF PRESENT ILLNESS This is a pleasant 83 yo female admitted for complains of left leg pain. She lives with her daughter. Apparently her legs particularly her left leg has been more swollen with some redness. She has limited mobility and sedentary. No hx of PE, CAD or arrhythmia. Her daughter is not available for further details. Denies any chest pain, SOA, or palpitations. NO recent falls or injury. No known stress test. Consult is for bradycardia which was lowest in the 40s but currently mean in the 50s without any symptoms. She nury take clonidine at home. PAST MEDICAL HISTORY Cardiovascular: HTN, Hyperlipidemia Musculoskeletal: Osteoarthritis PAST SURGICAL HISTORY Past Surgical History: Appendectomy, Total hip replacement (right and post hematoma evacuation), Other (ankle fracture repair) FAMILY HISTORY Family History: Heart Disease SOCIAL HISTORY Smoke: No ALCOHOL: none Drugs: None Lives: with Family CURRENT MEDICATIONS CURRENT MEDICATIONS Current Medications Medications (Trade) Dose Ordered Sig/Butch Route PRN Reason Start Time Stop Time Status Last Admin Dose Admin Atorvastatin Calcium (Lipitor) 40 mg HS PO 04/03/19 21:00 04/03/19 21:02 Lactobacillus Rhamnosus (Culturelle) 1 cap BID PO 04/03/19 21:00 04/04/19 09:14 Clonidine HCl (Catapres) 0.1 mg DAILY PO 04/04/19 15:00 04/04/19 15:14 ALLERGIES ALLERGIES: Coded Allergies: meperidine (Verified Adverse Reaction, Intermediate, Nausea and Vomiting, 04/28/15) ROS Review of System 14 point ROS evaluated with pertinent positives noted per HPI PHYSICAL EXAM General: Alert, Oriented X3, Cooperative, No acute distress HEENT: Atraumatic, Mucous membr. moist/pink Lungs: Other (basilar crackles) Heart: Regular rate (SR), Normal S1, Normal S2, Other (3/6 systolic murmur to KARO border) Abdomen: Soft, No tenderness Extremities: No cyanosis, Other (2+ RLE and 3+ to LLE with petechial flat lesions) Skin: No breakdown Neuro: Normal speech, Sensation intact Psych/Mental Status: Mental status NL, Mood NL MUSCULOSKELETAL: Osteoarthritic changes both hands VITALS/I&O VITALS/I&O: Vital Signs Date Time Temp Pulse Resp B/P (MAP) Pulse Ox O2 Delivery O2 Flow Rate FiO2 04/04/19 15:14 65 04/04/19 14:24 98.4 20 163/76 (105) 97 Room Air 98.4 I & O 04/03/19 04/03/19 04/04/19 15:00 23:00 07:00 Intake Total 250 ml 600 ml 200 ml Output Total 2 ml Balance 250 ml 600 ml 198 ml LABS Lab: Laboratory Tests Test 04/04/19 03:30 04/04/19 10:55 04/04/19 16:44 White Blood Count 5.4 x10^3/uL (4.0-11.0) Red Blood Count 3.67 x10^6/uL (3.50-5.40) Hemoglobin 11.2 g/dL (12.0-15.5) L Hematocrit 32.4 % (36.0-47.0) L Mean Corpuscular Volume 88 fL (79-100) Mean Corpuscular Hemoglobin 31 pg (25-35) Mean Corpuscular Hemoglobin Concent 35 g/dL (31-37) Red Cell Distribution Width 14.3 % (11.5-14.5) Platelet Count 163 x10^3/uL (140-400) Heparin Anti-Xa Act, Unfractionated > 1.10 IU/mL (0.30-0.70) *H 0.85 IU/mL (0.30-0.70) H 0.69 IU/mL (0.30-0.70) Laboratory Tests 04/04/19 03:30 ASSESSMENT/PLAN ASSESSMENT/PLAN 1. Extensive occlusive LLE DVT 2. Asymptomatic SB: lowest in the 40s. 3. HTN: controlled 4. 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 Debility Recommendations 1. DC clondine. Avoid AV susy blocking agents 2. Continue current BP regimen 3. Anticoagulation per hematology 4. TTE, TSH and lipids. 5. Supportive care. NOEMI AYERS APRN Apr 04, 2019 17:20
--- NOTE | 2019-04-04 17:47 | EKG ---
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
[2019-04-04 18:45] LABS: CHOLESTEROL/HDL RATIO 2.1
[2019-04-04 19:20] VITALS: BP 120/49
[2019-04-04] MEDS: HEPARIN 25,000UTS/250ML PREMIX 250 ML IV PRN (19:33)
[2019-04-04] MEDS: ATORVASTATIN CALCIUM 40 MG TABLET. PO SCH (21:00)
[2019-04-04 23:20] VITALS: BP 118/48
[2019-04-05 03:10] VITALS: BP 131/45
[2019-04-05 05:44] LABS: BASO # 0.1 x10^3/uL (0.0-0.2); BASO % 2 % (0-3); EOS # 0.2 x10^3/uL (0.0-0.7); EOS % 3 % (0-3); HEMATOCRIT 34.4 % (36.0-47.0); HEMOGLOBIN 11.7 g/dL (12.0-15.5); LYMPH # 1.5 x10^3/uL (1.0-4.8); LYMPH % 29 % (24-48); MEAN CORPUSCULAR HEMOGLOBIN 30 pg (25-35); MEAN CORPUSCULAR HGB CONC 34 g/dL (31-37); MEAN CORPUSCULAR VOLUME 89 fL (79-100); MONO # 0.6 x10^3/uL (0.0-1.1); MONO % 12 % (0-9); NEUT # 2.8 x10^3/uL (1.8-7.7); NEUT % 55 % (31-73); PLATELET COUNT 193 x10^3/uL (140-400); RED BLOOD COUNT 3.88 x10^6/uL (3.50-5.40); RED CELL DISTRIBUTION WIDTH 14.7 % (11.5-14.5); WHITE BLOOD COUNT 5.2 x10^3/uL (4.0-11.0)
[2019-04-05 06:19] LABS: ALBUMIN 2.6 g/dL (3.4-5.0); ALBUMIN/GLOBULIN RATIO 0.7 (1.0-1.7); CALCIUM 9.1 mg/dL (8.5-10.1); CREATININE 1.5 mg/dL (0.6-1.0); GFR 33.3; TOTAL BILIRUBIN 0.3 mg/dL (0.2-1.0); TOTAL PROTEIN 6.2 g/dL (6.4-8.2)
[2019-04-05 07:00] VITALS: BP 141/63
[2019-04-05] MEDS: MULTIVITAMIN with MINERAL TABLET. PO SCH (08:24)
[2019-04-05] MEDS: amLODIPine BESYLATE 5 MG TABLET PO SCH ×2 (08:25→21:45)
[2019-04-05] MEDS: CLOPIDOGREL BISULFATE 75 MG TABLET PO SCH (08:25)
[2019-04-05] MEDS: cloNIDine HCL 0.1 MG TABLET PO SCH (08:25)
[2019-04-05] MEDS: CIPROFLOXACIN HCL 250 MG TABLET. PO SCH (08:25)
[2019-04-05] MEDS: LISINOPRIL 20 MG TABLET PO SCH ×2 (08:26→21:44)
[2019-04-05] MEDS: SENNOSIDES/DOCUSATE 8.6/50MG TABLET. PO SCH (08:26)
[2019-04-05] MEDS: POLYETHYLENE GLYCOL 3350 17 GM PACKET. PO SCH (08:26)
[2019-04-05] MEDS: LACTOBACILLUS RHAMNOSUS GG 1 CAPSULE. PO SCH ×2 (08:27→21:43)
--- NOTE | 2019-04-05 10:59 | PDOC ---
PROGRESS NOTES History of Present Illness History of Present Illness ASSESSMENT AND PLAN: Extensive deep venous thrombosis. Occlusive DVT in the entire left lower extremity venous system from the common femoral vein down to the segmental and visualized calf veins. bradycardia NAKIA admitted. anticoagulation, consult Vascular Surgery. No surgical intervention recommended. physical therapy, occupational therapy, IV hydration, full code, p.r.n. fentanyl. Trend labs, lower extremity arterial studies. cvc bed RENAL US Consult nephrology, may need to hold lisinopril reduce clonidine dose Prognosis guarded. No surgical intervention recommended. consult Hematology. d/w RN Vitals Vitals Vital Signs Date Time Temp Pulse Resp B/P (MAP) Pulse Ox O2 Delivery O2 Flow Rate FiO2 04/05/19 08:26 65 141/63 04/05/19 08:00 Room Air 04/05/19 07:00 98.0 16 97 98.0 Physical Exam General: Alert, Oriented X3, Cooperative, No acute distress Heart: Regular rate (SR), Normal S1, Normal S2, Other (3/6 systolic murmur to KARO border) Abdomen: Soft, No tenderness Extremities: No cyanosis, Other (2+ RLE and 3+ to LLE with petechial flat lesions) Skin: No breakdown Labs LABS Laboratory Tests Test 04/04/19 16:44 04/04/19 23:15 04/05/19 04:45 Heparin Anti-Xa Act, Unfractionated 0.69 IU/mL (0.30-0.70) 0.33 IU/mL (0.30-0.70) 0.23 IU/mL (0.30-0.70) White Blood Count 5.2 x10^3/uL (4.0-11.0) Red Blood Count 3.88 x10^6/uL (3.50-5.40) Hemoglobin 11.7 g/dL (12.0-15.5) Hematocrit 34.4 % (36.0-47.0) Mean Corpuscular Volume 89 fL (79-100) Mean Corpuscular Hemoglobin 30 pg (25-35) Mean Corpuscular Hemoglobin Concent 34 g/dL (31-37) Red Cell Distribution Width 14.7 % (11.5-14.5) Platelet Count 193 x10^3/uL (140-400) Neutrophils (%) (Auto) 55 % (31-73) Lymphocytes (%) (Auto) 29 % (24-48) Monocytes (%) (Auto) 12 % (0-9) Eosinophils (%) (Auto) 3 % (0-3) Basophils (%) (Auto) 2 % (0-3) Neutrophils # (Auto) 2.8 x10^3/uL (1.8-7.7) Lymphocytes # (Auto) 1.5 x10^3/uL (1.0-4.8) Monocytes # (Auto) 0.6 x10^3/uL (0.0-1.1) Eosinophils # (Auto) 0.2 x10^3/uL (0.0-0.7) Basophils # (Auto) 0.1 x10^3/uL (0.0-0.2) Sodium Level 140 mmol/L (136-145) Potassium Level 4.0 mmol/L (3.5-5.1) Chloride Level 106 mmol/L (98-107) Carbon Dioxide Level 25 mmol/L (21-32) Anion Gap 9 (6-14) Blood Urea Nitrogen 32 mg/dL (7-20) Creatinine 1.5 mg/dL (0.6-1.0) Estimated GFR (Cockcroft-Gault) 33.3 BUN/Creatinine Ratio 21 (6-20) Glucose Level 90 mg/dL (70-99) Calcium Level 9.1 mg/dL (8.5-10.1) Total Bilirubin 0.3 mg/dL (0.2-1.0) Aspartate Amino Transf (AST/SGOT) 17 U/L (15-37) Alanine Aminotransferase (ALT/SGPT) 8 U/L (14-59) Alkaline Phosphatase 86 U/L (46-116) Total Protein 6.2 g/dL (6.4-8.2) Albumin 2.6 g/dL (3.4-5.0) Albumin/Globulin Ratio 0.7 (1.0-1.7) Assessment and Plan Assessmemt and Plan Problems Medical Problems: (1) DVT (deep venous thrombosis) Status: Acute Comment Review of Relevant I have reviewed the following items harriett (where applicable) has been applied. Labs Laboratory Tests Test 04/03/19 13:45 04/04/19 03:30 04/04/19 10:55 04/04/19 16:44 Heparin Anti-Xa Act, Unfractionated 0.41 IU/mL (0.30-0.70) > 1.10 IU/mL (0.30-0.70) 0.85 IU/mL (0.30-0.70) 0.69 IU/mL (0.30-0.70) White Blood Count 5.4 x10^3/uL (4.0-11.0) Red Blood Count 3.67 x10^6/uL (3.50-5.40) Hemoglobin 11.2 g/dL (12.0-15.5) Hematocrit 32.4 % (36.0-47.0) Mean Corpuscular Volume 88 fL (79-100) Mean Corpuscular Hemoglobin 31 pg (25-35) Mean Corpuscular Hemoglobin Concent 35 g/dL (31-37) Red Cell Distribution Width 14.3 % (11.5-14.5) Platelet Count 163 x10^3/uL (140-400) Triglycerides Level 29 mg/dL (0-150) Cholesterol Level 114 mg/dL (0-200) LDL Cholesterol, Calculated 54 mg/dL (0-100) VLDL Cholesterol, Calculated 6 mg/dL (0-40) Non-HDL Cholesterol Calculated 60 mg/dL (0-129) HDL Cholesterol 54 mg/dL (40-60) Cholesterol/HDL Ratio 2.1 Thyroid Stimulating Hormone (TSH) 1.777 uIU/mL (0.358-3.74) Test 04/04/19 23:15 04/05/19 04:45 Heparin Anti-Xa Act, Unfractionated 0.33 IU/mL (0.30-0.70) 0.23 IU/mL (0.30-0.70) White Blood Count 5.2 x10^3/uL (4.0-11.0) Red Blood Count 3.88 x10^6/uL (3.50-5.40) Hemoglobin 11.7 g/dL (12.0-15.5) Hematocrit 34.4 % (36.0-47.0) Mean Corpuscular Volume 89 fL (79-100) Mean Corpuscular Hemoglobin 30 pg (25-35) Mean Corpuscular Hemoglobin Concent 34 g/dL (31-37) Red Cell Distribution Width 14.7 % (11.5-14.5) Platelet Count 193 x10^3/uL (140-400) Neutrophils (%) (Auto) 55 % (31-73) Lymphocytes (%) (Auto) 29 % (24-48) Monocytes (%) (Auto) 12 % (0-9) Eosinophils (%) (Auto) 3 % (0-3) Basophils (%) (Auto) 2 % (0-3) Neutrophils # (Auto) 2.8 x10^3/uL (1.8-7.7) Lymphocytes # (Auto) 1.5 x10^3/uL (1.0-4.8) Monocytes # (Auto) 0.6 x10^3/uL (0.0-1.1) Eosinophils # (Auto) 0.2 x10^3/uL (0.0-0.7) Basophils # (Auto) 0.1 x10^3/uL (0.0-0.2) Sodium Level 140 mmol/L (136-145) Potassium Level 4.0 mmol/L (3.5-5.1) Chloride Level 106 mmol/L (98-107) Carbon Dioxide Level 25 mmol/L (21-32) Anion Gap 9 (6-14) Blood Urea Nitrogen 32 mg/dL (7-20) Creatinine 1.5 mg/dL (0.6-1.0) Estimated GFR (Cockcroft-Gault) 33.3 BUN/Creatinine Ratio 21 (6-20) Glucose Level 90 mg/dL (70-99) Calcium Level 9.1 mg/dL (8.5-10.1) Total Bilirubin 0.3 mg/dL (0.2-1.0) Aspartate Amino Transf (AST/SGOT) 17 U/L (15-37) Alanine Aminotransferase (ALT/SGPT) 8 U/L (14-59) Alkaline Phosphatase 86 U/L (46-116) Total Protein 6.2 g/dL (6.4-8.2) Albumin 2.6 g/dL (3.4-5.0) Albumin/Globulin Ratio 0.7 (1.0-1.7) Laboratory Tests Test 04/04/19 16:44 04/04/19 23:15 04/05/19 04:45 Heparin Anti-Xa Act, Unfractionated 0.69 IU/mL (0.30-0.70) 0.33 IU/mL (0.30-0.70) 0.23 IU/mL (0.30-0.70) White Blood Count 5.2 x10^3/uL (4.0-11.0) Red Blood Count 3.88 x10^6/uL (3.50-5.40) Hemoglobin 11.7 g/dL (12.0-15.5) Hematocrit 34.4 % (36.0-47.0) Mean Corpuscular Volume 89 fL (79-100) Mean Corpuscular Hemoglobin 30 pg (25-35) Mean Corpuscular Hemoglobin Concent 34 g/dL (31-37) Red Cell Distribution Width 14.7 % (11.5-14.5) Platelet Count 193 x10^3/uL (140-400) Neutrophils (%) (Auto) 55 % (31-73) Lymphocytes (%) (Auto) 29 % (24-48) Monocytes (%) (Auto) 12 % (0-9) Eosinophils (%) (Auto) 3 % (0-3) Basophils (%) (Auto) 2 % (0-3) Neutrophils # (Auto) 2.8 x10^3/uL (1.8-7.7) Lymphocytes # (Auto) 1.5 x10^3/uL (1.0-4.8) Monocytes # (Auto) 0.6 x10^3/uL (0.0-1.1) Eosinophils # (Auto) 0.2 x10^3/uL (0.0-0.7) Basophils # (Auto) 0.1 x10^3/uL (0.0-0.2) Sodium Level 140 mmol/L (136-145) Potassium Level 4.0 mmol/L (3.5-5.1) Chloride Level 106 mmol/L (98-107) Carbon Dioxide Level 25 mmol/L (21-32) Anion Gap 9 (6-14) Blood Urea Nitrogen 32 mg/dL (7-20) Creatinine 1.5 mg/dL (0.6-1.0) Estimated GFR (Cockcroft-Gault) 33.3 BUN/Creatinine Ratio 21 (6-20) Glucose Level 90 mg/dL (70-99) Calcium Level 9.1 mg/dL (8.5-10.1) Total Bilirubin 0.3 mg/dL (0.2-1.0) Aspartate Amino Transf (AST/SGOT) 17 U/L (15-37) Alanine Aminotransferase (ALT/SGPT) 8 U/L (14-59) Alkaline Phosphatase 86 U/L (46-116) Total Protein 6.2 g/dL (6.4-8.2) Albumin 2.6 g/dL (3.4-5.0) Albumin/Globulin Ratio 0.7 (1.0-1.7) Medications Current Medications Heparin Sodium/ Dextrose 250 ml @ 0 mls/hr CONT PRN IV PER PROTOCOL Last administered on 04/04/19at 19:33; Start 04/02/19 at 20:15 Heparin Sodium (Porcine) (Heparin Sodium) 2,450 unit PRN Q6HRS PRN IV FOR UFH LEVEL LESS THAN 0.2; Start 04/02/19 at 20:15 Heparin Sodium (Porcine) (Heparin Sodium) 1,200 unit PRN Q6HRS PRN IV FOR UFH LEVEL 0.2 - 0.29 Last administered on 04/05/19at 06:47; Start 04/02/19 at 20:15 Ondansetron HCl (Zofran) 4 mg PRN Q8HRS PRN IV NAUSEA/VOMITING; Start 04/02/19 at 20:30; Stop 04/03/19 at 20:29; Status DC Fentanyl Citrate (Fentanyl 2ml Vial) 50 mcg PRN Q1HR PRN IV PAIN; Start 04/02/19 at 20:30; Stop 04/03/19 at 20:29; Status DC Heparin Sodium (Porcine) (Heparin Sodium) 6,500 unit 1X ONCE IV Last administered on 04/02/19at 21:27; Start 04/02/19 at 21:15; Stop 04/02/19 at 21:16; Status DC Amlodipine Besylate (Norvasc) 5 mg BID PO Last administered on 04/05/19at 08:25; Start 04/03/19 at 09:00 Atorvastatin Calcium (Lipitor) 40 mg HS PO Last administered on 04/04/19at 21:00; Start 04/03/19 at 21:00 Clonidine HCl (Catapres) 0.2 mg DAILY PO Last administered on 04/03/19at 08:47; Start 04/03/19 at 09:00; Stop 04/04/19 at 14:56; Status DC Clopidogrel Bisulfate (Plavix) 75 mg DAILY PO Last administered on 04/05/19 08:25; Start 04/03/19 at 09:00 Ergocalciferol (Vitamin D2) 100,000 unit WEEKLY PO ; Start 04/09/19 at 09:00 Ferrous Sulfate (Feosol) 325 mg TID PRN PRN PO IRON REPLACEMENT; Start 04/02/19 at 23:30 Hydralazine HCl (Apresoline) 50 mg BID PO Last administered on 04/05/19 08:24; Start 04/03/19 at 09:00 Acetaminophen/ Hydrocodone Bitart (Lortab 7.5/325) 1 tab PRN Q3HRS PRN PO PAIN; Start 04/02/19 at 23:30 Lisinopril (Prinivil) 20 mg BID PO Last administered on 04/05/19 08:26; Start 04/03/19 at 09:00 Polyethylene Glycol (miraLAX PACKET) 17 gm DAILY PO Last administered on 04/05/19 08:26; Start 04/03/19 at 09:00 Senna/Docusate Sodium (Senna Plus) 1 tab DAILY PO Last administered on 04/05/19 08:26; Start 04/03/19 at 09:00 Celecoxib (CeleBREX) 200 mg 1X ONCE PO Last administered on 04/03/19 00:07; Start 04/02/19 at 23:45; Stop 04/02/19 at 23:49; Status DC Multivitamins (Thera M Plus) 1 tab DAILY PO Last administered on 04/05/19 08:24; Start 04/03/19 at 09:00 Hydralazine HCl (Apresoline Inj) 10 mg PRN Q6HRS PRN IVP ELEVATED BP, SEE COMMENTS; Start 04/02/19 at 23:45 Ciprofloxacin (Cipro) 500 mg BID PO Last administered on 04/05/19 08:25; Start 04/03/19 at 09:00 Ciprofloxacin (Cipro) 500 mg 1X ONCE PO Last administered on 04/03/19at 00:08; Start 04/02/19 at 23:45; Stop 04/02/19 at 23:46; Status DC Hydralazine HCl (Apresoline) 50 mg 1X ONCE PO Last administered on 04/03/19at 00:08; Start 04/02/19 at 23:45; Stop 04/02/19 at 23:46; Status DC Info (Anti-Coagulation Monitoring By Pharmacy) 1 each PRN DAILY PRN MC SEE COMMENTS Last administered on 04/04/19at 08:50; Start 04/03/19 at 15:00 Lactobacillus Rhamnosus (Culturelle) 1 cap BID PO Last administered on 04/05/19at 08:27; Start 04/03/19 at 21:00 Clonidine HCl (Catapres) 0.1 mg DAILY PO Last administered on 04/05/19at 08:25; Start 04/04/19 at 15:00 Active Scripts Active Hydrocodone-Apap 7.5-325 (Hydrocodone Bit/Acetaminophen) 1 Each Tablet 1 Tab PO PRN Q3HRS PRN 30 Days Senna-Time S Tablet (Sennosides/Docusate Sodium) 1 Each Tablet 1 Tab PO DAILY 30 Days Reported Celebrex (Celecoxib) 200 Mg Capsule 1 Cap PO 1X Coumadin (Warfarin Sodium) 5 Mg Tablet 1 Tab PO 1X Multivitamins (Multivitamin) 1 Each Capsule 1 Each PO DAILY Ferrous Sulfate 325 Mg Tablet 325 Mg PO TID PRN Miralax (Polyethylene Glycol 3350) 17 Gm Powd.pack 1 Pkt PO DAILY Catapres (Clonidine Hcl) 0.1 Mg Tablet 0.2 Mg PO DAILY Vitamin D2 (Ergocalciferol (Vitamin D2)) 50,000 Unit Capsule 100,000 Unit PO WEEKLY Lisinopril 20 Mg Tablet 20 Mg PO BID Hydralazine Hcl 50 Mg Tablet 50 Mg PO BID Clopidogrel (Clopidogrel Bisulfate) 75 Mg Tablet 75 Mg PO DAILY Amlodipine Besylate 5 Mg Tablet 5 Mg PO BID Atorvastatin Calcium 40 Mg Tablet 40 Mg PO HS Vitals/I & O Vital Sign - Last 24 Hours 04/04/19 04/04/19 04/04/19 04/04/19 12:20 14:24 15:14 15:14 Temp 98.4 98.4 Pulse 47 70 65 65 Resp 20 B/P (MAP) 163/76 (105) Pulse Ox 97 O2 Delivery Room Air 04/04/19 04/04/19 04/04/19 04/04/19 19:20 20:00 21:01 21:01 Temp 97.9 97.9 Pulse 52 52 52 Resp 21 B/P (MAP) 120/49 (72) 120/49 120/49 Pulse Ox 97 O2 Delivery Room Air Room Air 04/04/19 04/04/19 04/05/19 04/05/19 21:01 23:20 03:10 07:00 Temp 98.2 97.9 98.0 98.2 97.9 98.0 Pulse 52 59 58 54 Resp 21 22 16 B/P (MAP) 120/49 118/48 (71) 131/45 (73) 141/63 (89) Pulse Ox 98 96 97 O2 Delivery Room Air Room Air Room Air 04/05/19 04/05/19 04/05/19 04/05/19 08:00 08:24 08:25 08:25 Pulse 65 65 62 B/P (MAP) 141/63 141/63 141/63 O2 Delivery Room Air 04/05/19 08:26 Pulse 65 B/P (MAP) 141/63 Intake and Output 04/04/19 04/04/19 04/05/19 15:00 23:00 07:00 Intake Total 360 ml 750 ml 100 ml Output Total 1 ml Balance 359 ml 750 ml 100 ml ALLISON ERICKSON MD Apr 05, 2019 10:59
[2019-04-05 11:00] VITALS: BP 114/55
--- NOTE | 2019-04-05 13:06 | PDOC ---
PROGRESS NOTES Subjective Subjective Patient seen and examined Objective Objective Vital Signs Date Time Temp Pulse Resp B/P (MAP) Pulse Ox O2 Delivery O2 Flow Rate FiO2 04/05/19 11:00 98.1 52 16 114/55 (74) 97 98.1 04/05/19 08:00 Room Air Intake and Output 04/05/19 07:00 Intake Total 1210 ml Output Total 1 ml Balance 1209 ml Intake Oral 960 ml IV Total 250 ml Output Urine Total 1 ml # Voids 3 Physical Exam Abdomen: Normal bowel sounds Heart: Regular rate General: mild distress Lungs: Clear to auscultation Assessment Assessment Problems Medical Problems: (1) DVT (deep venous thrombosis) Status: Acute 1. Extensive occlusive LLE DVT. Anticoagulation as per the primary and heme/onc. 2. Asymptomatic SB: Rate improved to 60 off clonidine. 3. HTN: controlled 4. 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 Debility Comment Review of Relevant I have reviewed the following items harriett (where applicable) has been applied. Labs Laboratory Tests Test 04/03/19 13:45 04/04/19 03:30 04/04/19 10:55 04/04/19 16:44 Heparin Anti-Xa Act, Unfractionated 0.41 IU/mL (0.30-0.70) > 1.10 IU/mL (0.30-0.70) 0.85 IU/mL (0.30-0.70) 0.69 IU/mL (0.30-0.70) White Blood Count 5.4 x10^3/uL (4.0-11.0) Red Blood Count 3.67 x10^6/uL (3.50-5.40) Hemoglobin 11.2 g/dL (12.0-15.5) Hematocrit 32.4 % (36.0-47.0) Mean Corpuscular Volume 88 fL (79-100) Mean Corpuscular Hemoglobin 31 pg (25-35) Mean Corpuscular Hemoglobin Concent 35 g/dL (31-37) Red Cell Distribution Width 14.3 % (11.5-14.5) Platelet Count 163 x10^3/uL (140-400) Triglycerides Level 29 mg/dL (0-150) Cholesterol Level 114 mg/dL (0-200) LDL Cholesterol, Calculated 54 mg/dL (0-100) VLDL Cholesterol, Calculated 6 mg/dL (0-40) Non-HDL Cholesterol Calculated 60 mg/dL (0-129) HDL Cholesterol 54 mg/dL (40-60) Cholesterol/HDL Ratio 2.1 Thyroid Stimulating Hormone (TSH) 1.777 uIU/mL (0.358-3.74) Test 04/04/19 23:15 04/05/19 04:45 Heparin Anti-Xa Act, Unfractionated 0.33 IU/mL (0.30-0.70) 0.23 IU/mL (0.30-0.70) White Blood Count 5.2 x10^3/uL (4.0-11.0) Red Blood Count 3.88 x10^6/uL (3.50-5.40) Hemoglobin 11.7 g/dL (12.0-15.5) Hematocrit 34.4 % (36.0-47.0) Mean Corpuscular Volume 89 fL (79-100) Mean Corpuscular Hemoglobin 30 pg (25-35) Mean Corpuscular Hemoglobin Concent 34 g/dL (31-37) Red Cell Distribution Width 14.7 % (11.5-14.5) Platelet Count 193 x10^3/uL (140-400) Neutrophils (%) (Auto) 55 % (31-73) Lymphocytes (%) (Auto) 29 % (24-48) Monocytes (%) (Auto) 12 % (0-9) Eosinophils (%) (Auto) 3 % (0-3) Basophils (%) (Auto) 2 % (0-3) Neutrophils # (Auto) 2.8 x10^3/uL (1.8-7.7) Lymphocytes # (Auto) 1.5 x10^3/uL (1.0-4.8) Monocytes # (Auto) 0.6 x10^3/uL (0.0-1.1) Eosinophils # (Auto) 0.2 x10^3/uL (0.0-0.7) Basophils # (Auto) 0.1 x10^3/uL (0.0-0.2) Sodium Level 140 mmol/L (136-145) Potassium Level 4.0 mmol/L (3.5-5.1) Chloride Level 106 mmol/L (98-107) Carbon Dioxide Level 25 mmol/L (21-32) Anion Gap 9 (6-14) Blood Urea Nitrogen 32 mg/dL (7-20) Creatinine 1.5 mg/dL (0.6-1.0) Estimated GFR (Cockcroft-Gault) 33.3 BUN/Creatinine Ratio 21 (6-20) Glucose Level 90 mg/dL (70-99) Calcium Level 9.1 mg/dL (8.5-10.1) Total Bilirubin 0.3 mg/dL (0.2-1.0) Aspartate Amino Transf (AST/SGOT) 17 U/L (15-37) Alanine Aminotransferase (ALT/SGPT) 8 U/L (14-59) Alkaline Phosphatase 86 U/L (46-116) Total Protein 6.2 g/dL (6.4-8.2) Albumin 2.6 g/dL (3.4-5.0) Albumin/Globulin Ratio 0.7 (1.0-1.7) Laboratory Tests Test 04/04/19 16:44 04/04/19 23:15 04/05/19 04:45 Heparin Anti-Xa Act, Unfractionated 0.69 IU/mL (0.30-0.70) 0.33 IU/mL (0.30-0.70) 0.23 IU/mL (0.30-0.70) White Blood Count 5.2 x10^3/uL (4.0-11.0) Red Blood Count 3.88 x10^6/uL (3.50-5.40) Hemoglobin 11.7 g/dL (12.0-15.5) Hematocrit 34.4 % (36.0-47.0) Mean Corpuscular Volume 89 fL (79-100) Mean Corpuscular Hemoglobin 30 pg (25-35) Mean Corpuscular Hemoglobin Concent 34 g/dL (31-37) Red Cell Distribution Width 14.7 % (11.5-14.5) Platelet Count 193 x10^3/uL (140-400) Neutrophils (%) (Auto) 55 % (31-73) Lymphocytes (%) (Auto) 29 % (24-48) Monocytes (%) (Auto) 12 % (0-9) Eosinophils (%) (Auto) 3 % (0-3) Basophils (%) (Auto) 2 % (0-3) Neutrophils # (Auto) 2.8 x10^3/uL (1.8-7.7) Lymphocytes # (Auto) 1.5 x10^3/uL (1.0-4.8) Monocytes # (Auto) 0.6 x10^3/uL (0.0-1.1) Eosinophils # (Auto) 0.2 x10^3/uL (0.0-0.7) Basophils # (Auto) 0.1 x10^3/uL (0.0-0.2) Sodium Level 140 mmol/L (136-145) Potassium Level 4.0 mmol/L (3.5-5.1) Chloride Level 106 mmol/L (98-107) Carbon Dioxide Level 25 mmol/L (21-32) Anion Gap 9 (6-14) Blood Urea Nitrogen 32 mg/dL (7-20) Creatinine 1.5 mg/dL (0.6-1.0) Estimated GFR (Cockcroft-Gault) 33.3 BUN/Creatinine Ratio 21 (6-20) Glucose Level 90 mg/dL (70-99) Calcium Level 9.1 mg/dL (8.5-10.1) Total Bilirubin 0.3 mg/dL (0.2-1.0) Aspartate Amino Transf (AST/SGOT) 17 U/L (15-37) Alanine Aminotransferase (ALT/SGPT) 8 U/L (14-59) Alkaline Phosphatase 86 U/L (46-116) Total Protein 6.2 g/dL (6.4-8.2) Albumin 2.6 g/dL (3.4-5.0) Albumin/Globulin Ratio 0.7 (1.0-1.7) Medications Current Medications Heparin Sodium/ Dextrose 250 ml @ 0 mls/hr CONT PRN IV PER PROTOCOL Last administered on 04/04/19at 19:33; Start 04/02/19 at 20:15 Heparin Sodium (Porcine) (Heparin Sodium) 2,450 unit PRN Q6HRS PRN IV FOR UFH LEVEL LESS THAN 0.2; Start 04/02/19 at 20:15 Heparin Sodium (Porcine) (Heparin Sodium) 1,200 unit PRN Q6HRS PRN IV FOR UFH LEVEL 0.2 - 0.29 Last administered on 04/05/19at 06:47; Start 04/02/19 at 20:15 Ondansetron HCl (Zofran) 4 mg PRN Q8HRS PRN IV NAUSEA/VOMITING; Start 04/02/19 at 20:30; Stop 04/03/19 at 20:29; Status DC Fentanyl Citrate (Fentanyl 2ml Vial) 50 mcg PRN Q1HR PRN IV PAIN; Start 04/02/19 at 20:30; Stop 04/03/19 at 20:29; Status DC Heparin Sodium (Porcine) (Heparin Sodium) 6,500 unit 1X ONCE IV Last administered on 04/02/19 21:27; Start 04/02/19 at 21:15; Stop 04/02/19 at 21:16; Status DC Amlodipine Besylate (Norvasc) 5 mg BID PO Last administered on 04/05/19 08:25; Start 04/03/19 at 09:00 Atorvastatin Calcium (Lipitor) 40 mg HS PO Last administered on 04/04/19 21:00; Start 04/03/19 at 21:00 Clonidine HCl (Catapres) 0.2 mg DAILY PO Last administered on 04/03/19 08:47; Start 04/03/19 at 09:00; Stop 04/04/19 at 14:56; Status DC Clopidogrel Bisulfate (Plavix) 75 mg DAILY PO Last administered on 04/05/19 08:25; Start 04/03/19 at 09:00 Ergocalciferol (Vitamin D2) 100,000 unit WEEKLY PO ; Start 04/09/19 at 09:00 Ferrous Sulfate (Feosol) 325 mg TID PRN PRN PO IRON REPLACEMENT; Start 04/02/19 at 23:30 Hydralazine HCl (Apresoline) 50 mg BID PO Last administered on 04/05/19at 08:24; Start 04/03/19 at 09:00 Acetaminophen/ Hydrocodone Bitart (Lortab 7.5/325) 1 tab PRN Q3HRS PRN PO PAIN; Start 04/02/19 at 23:30 Lisinopril (Prinivil) 20 mg BID PO Last administered on 04/05/19 08:26; Start 04/03/19 at 09:00 Polyethylene Glycol (miraLAX PACKET) 17 gm DAILY PO Last administered on 04/05/19 08:26; Start 04/03/19 at 09:00 Senna/Docusate Sodium (Senna Plus) 1 tab DAILY PO Last administered on 04/05 08:26; Start 04/03/19 at 09:00 Celecoxib (CeleBREX) 200 mg 1X ONCE PO Last administered on 04/03/19 00:07; Start 04/02/19 at 23:45; Stop 04/02/19 at 23:49; Status DC Multivitamins (Thera M Plus) 1 tab DAILY PO Last administered on 04/05/19at 08:2 4; Start 04/03/19 at 09:00 Hydralazine HCl (Apresoline Inj) 10 mg PRN Q6HRS PRN IVP ELEVATED BP, SEE COMMENTS; Start 04/02/19 at 23:45 Ciprofloxacin (Cipro) 500 mg BID PO Last administered on 04/05/19 08:25; Start 04/03/19 at 09:00 Ciprofloxacin (Cipro) 500 mg 1X ONCE PO Last administered on 04/03/19at 00:08; Start 04/02/19 at 23:45; Stop 04/02/19 at 23:46; Status DC Hydralazine HCl (Apresoline) 50 mg 1X ONCE PO Last administered on 04/03/19 00:08; Start 04/02/19 at 23:45; Stop 04/02/19 at 23:46; Status DC Info (Anti-Coagulation Monitoring By Pharmacy) 1 each PRN DAILY PRN MC SEE COMMENTS Last administered on 04/04/19at 08:50; Start 04/03/19 at 15:00 Lactobacillus Rhamnosus (Culturelle) 1 cap BID PO Last administered on 04/05/19at 08:27; Start 04/03/19 at 21:00 Clonidine HCl (Catapres) 0.1 mg DAILY PO Last administered on 04/05/19 08:25; Start 04/04/19 at 15:00 Active Scripts Active Hydrocodone-Apap 7.5-325 (Hydrocodone Bit/Acetaminophen) 1 Each Tablet 1 Tab PO PRN Q3HRS PRN 30 Days Senna-Time S Tablet (Sennosides/Docusate Sodium) 1 Each Tablet 1 Tab PO DAILY 30 Days Reported Celebrex (Celecoxib) 200 Mg Capsule 1 Cap PO 1X Coumadin (Warfarin Sodium) 5 Mg Tablet 1 Tab PO 1X Multivitamins (Multivitamin) 1 Each Capsule 1 Each PO DAILY Ferrous Sulfate 325 Mg Tablet 325 Mg PO TID PRN Miralax (Polyethylene Glycol 3350) 17 Gm Powd.pack 1 Pkt PO DAILY Catapres (Clonidine Hcl) 0.1 Mg Tablet 0.2 Mg PO DAILY Vitamin D2 (Ergocalciferol (Vitamin D2)) 50,000 Unit Capsule 100,000 Unit PO WEEKLY Lisinopril 20 Mg Tablet 20 Mg PO BID Hydralazine Hcl 50 Mg Tablet 50 Mg PO BID Clopidogrel (Clopidogrel Bisulfate) 75 Mg Tablet 75 Mg PO DAILY Amlodipine Besylate 5 Mg Tablet 5 Mg PO BID Atorvastatin Calcium 40 Mg Tablet 40 Mg PO HS Vitals/I & O Vital Sign - Last 24 Hours 04/04/19 04/04/19 04/04/19 04/04/19 14:24 15:14 15:14 19:20 Temp 98.4 97.9 98.4 97.9 Pulse 70 65 65 52 Resp 21 B/P (MAP) 163/76 (105) 120/49 (72) Pulse Ox 97 97 O2 Delivery Room Air Room Air 04/04/19 04/04/19 04/04/19 04/04/19 20:00 21:01 21:01 21:01 Pulse 52 52 52 B/P (MAP) 120/49 120/49 120/49 O2 Delivery Room Air 04/04/19 04/05/19 04/05/19 04/05/19 23:20 03:10 07:00 08:00 Temp 98.2 97.9 98.0 98.2 97.9 98.0 Pulse 59 58 54 Resp 16 B/P (MAP) 118/48 (71) 131/45 (73) 141/63 (89) Pulse Ox 98 96 97 O2 Delivery Room Air Room Air Room Air Room Air 04/05/19 04/05/19 04/05/19 04/05/19 08:24 08:25 08:25 08:26 Pulse 65 65 62 65 B/P (MAP) 141/63 141/63 141/63 141/63 04/05/19 11:00 Temp 98.1 98.1 Pulse 52 Resp 16 B/P (MAP) 114/55 (74) Pulse Ox 97 Intake and Output 04/04/19 04/04/19 04/05/19 15:00 23:00 07:00 Intake Total 360 ml 750 ml 100 ml Output Total 1 ml Balance 359 ml 750 ml 100 ml RAÚL LYONS MD Apr 05, 2019 13:06
[2019-04-05 15:00] VITALS: BP 106/53
--- NOTE | 2019-04-05 15:31 | RAD ---
Renal sonography Clinical indications: Acute kidney injury. FINDINGS: The longitudinal and AP and transverse dimensions of the left kidney are 9.9 cm and 6.1 cm and 5.0 cm respectively. There are 2 cysts of the left kidney. The larger cyst is seen laterally measuring 5.2 cm. The longitudinal and AP and transverse dimensions of the right kidney are 10.3 cm and 4.2 cm and 5.4 cm respectively. There is a cyst of the lateral aspect of the right kidney measuring 3.3 cm in size. No hydronephrosis is seen on either side. Urinary bladder is distended measuring 509 cc prior to voiding. The patient stated she cannot void. IMPRESSION: No hydronephrosis. Bilateral renal cysts. Moderate urinary bladder distention. Patient states she cannot void. Electronically signed by: Luis Murrieta MD (04/05/2019 3:28 PM) [facility]
[2019-04-05] MEDS: HEPARIN 25,000UTS/250ML PREMIX 250 ML IV PRN (17:31)
[2019-04-05 19:20] VITALS: BP 110/53
--- NOTE | 2019-04-05 19:58 | NUR ---
on days [place] called dr Krause see his orders. scanned bladder was 673. pt's abd les area was hard and tender. sent ua. and drained rosie 1000 from bladder. lcrn
[2019-04-05] MEDS ORDERED: TAMSULOSIN 0.4 MG CAP.ER.24H. PO ONE (20:00)
[2019-04-05 20:46] LABS: BILIRUBIN,URINE NEGATIVE (NEG); CLARITY,URINE CLEAR; COLOR,URINE YELLOW; NITRITE,URINE NEGATIVE (NEG); PH,URINE 5.5; PROTEIN,URINE NEGATIVE (NEG-TRACE); UROBILINOGEN,URINE 0.2 mg/dL (0.2 mg/dL)
[2019-04-05 20:58] LABS: BACTERIA,URINE FEW /HPF (0-FEW); SQUAMOUS EPITHELIAL CELL,UR FEW /LPF
[2019-04-05] MEDS: ATORVASTATIN CALCIUM 40 MG TABLET. PO SCH (21:44)
[2019-04-05] MEDS: HYDROcodone/APAP 7.5/325MG 1 TAB TABLET PO PRN (21:44)
[2019-04-05 23:36] VITALS: BP 107/56
[2019-04-06 03:35] VITALS: BP 139/65
[2019-04-06 05:08] LABS: HEMATOCRIT 32.6 % (36.0-47.0); HEMOGLOBIN 11.1 g/dL (12.0-15.5); RED BLOOD COUNT 3.69 x10^6/uL (3.50-5.40); RED CELL DISTRIBUTION WIDTH 14.5 % (11.5-14.5); WHITE BLOOD COUNT 5.4 x10^3/uL (4.0-11.0)
[2019-04-06 06:01] LABS: ALBUMIN 2.5 g/dL (3.4-5.0); CALCIUM 9.7 mg/dL (8.5-10.1); CREATININE 1.4 mg/dL (0.6-1.0); GFR 36.1; PHOSPHORUS 2.9 mg/dL (2.6-4.7); POTASSIUM 3.9 mmol/L (3.5-5.1)
--- NOTE | 2019-04-06 06:09 | NUR ---
out put is 100 with a pur wic. scaned pt. only 210 in bladder. lcrn
[2019-04-06 07:00] VITALS: BP 155/69
[2019-04-06] MEDS: SENNOSIDES/DOCUSATE 8.6/50MG TABLET. PO SCH (08:06)
[2019-04-06] MEDS: cloNIDine HCL 0.1 MG TABLET PO SCH (08:06)
[2019-04-06] MEDS: MULTIVITAMIN with MINERAL TABLET. PO SCH (08:06)
[2019-04-06] MEDS: amLODIPine BESYLATE 5 MG TABLET PO SCH ×2 (08:07→23:12)
[2019-04-06] MEDS: LISINOPRIL 20 MG TABLET PO SCH ×2 (08:07→23:12)
[2019-04-06] MEDS: LACTOBACILLUS RHAMNOSUS GG 1 CAPSULE. PO SCH ×2 (08:08→23:12)
[2019-04-06] MEDS: POLYETHYLENE GLYCOL 3350 17 GM PACKET. PO SCH (08:08)
[2019-04-06] MEDS: CLOPIDOGREL BISULFATE 75 MG TABLET PO SCH (08:08)
[2019-04-06 11:00] VITALS: BP 137/62
--- NOTE | 2019-04-06 12:12 | PDOC ---
PROGRESS NOTES History of Present Illness History of Present Illness ASSESSMENT AND PLAN: Extensive deep venous thrombosis. Occlusive DVT in the entire left lower extremity venous system from the common femoral vein down to the segmental and visualized calf veins. bradycardia NAKIA admitted. anticoagulation, consult Vascular Surgery. No surgical intervention recommended. physical therapy, occupational therapy, IV hydration, full code, p.r.n. fentanyl. Trend labs, lower extremity arterial studies. cvc bed RENAL US Consult nephrology, may need to hold lisinopril reduce clonidine dose Prognosis guarded. No surgical intervention recommended. consult Hematology. Discharge Recommendations * [facility] Discharge Recommendation - DME * Rolling Walker needed * in order to complete ADLs * and ambulation safely d/w RN Vitals Vitals Vital Signs Date Time Temp Pulse Resp B/P (MAP) Pulse Ox O2 Delivery O2 Flow Rate FiO2 04/06/19 11:00 98.0 69 18 137/62 (87) 95 Room Air 98.0 Physical Exam General: Alert, Oriented X3, Cooperative, mild distress Heart: Regular rate, Normal S2 Abdomen: Normal bowel sounds Extremities: No cyanosis, Other (2+ RLE and 3+ to LLE with petechial flat lesions) Skin: No breakdown Labs LABS Laboratory Tests Test 04/05/19 13:11 04/05/19 19:15 04/05/19 19:30 04/06/19 04:30 Heparin Anti-Xa Act, Unfractionated 0.81 IU/mL (0.30-0.70) 0.52 IU/mL (0.30-0.70) 0.35 IU/mL (0.30-0.70) Urine Collection Type Unknown Urine Color Yellow Urine Clarity Clear Urine pH 5.5 Urine Specific Bowie 1.015 Urine Protein Negative mg/dL (NEG-TRACE) Urine Glucose (UA) Negative mg/dL (NEG) Urine Ketones (Stick) Negative mg/dL (NEG) Urine Blood Negative (NEG) Urine Nitrite Negative (NEG) Urine Bilirubin Negative (NEG) Urine Urobilinogen Dipstick 0.2 mg/dL (0.2 mg/dL) Urine Leukocyte Esterase Negative (NEG) Urine RBC 1-2 /HPF (0-2) Urine WBC 1-4 /HPF (0-4) Urine Squamous Epithelial Cells Few /LPF Urine Bacteria Few /HPF (0-FEW) White Blood Count 5.4 x10^3/uL (4.0-11.0) Red Blood Count 3.69 x10^6/uL (3.50-5.40) Hemoglobin 11.1 g/dL (12.0-15.5) Hematocrit 32.6 % (36.0-47.0) Mean Corpuscular Volume 88 fL (79-100) Mean Corpuscular Hemoglobin 30 pg (25-35) Mean Corpuscular Hemoglobin Concent 34 g/dL (31-37) Red Cell Distribution Width 14.5 % (11.5-14.5) Platelet Count 186 x10^3/uL (140-400) Sodium Level 143 mmol/L (136-145) Potassium Level 3.9 mmol/L (3.5-5.1) Chloride Level 108 mmol/L (98-107) Carbon Dioxide Level 26 mmol/L (21-32) Anion Gap 9 (6-14) Blood Urea Nitrogen 36 mg/dL (7-20) Creatinine 1.4 mg/dL (0.6-1.0) Estimated GFR (Cockcroft-Gault) 36.1 Glucose Level 110 mg/dL (70-99) Calcium Level 9.7 mg/dL (8.5-10.1) Phosphorus Level 2.9 mg/dL (2.6-4.7) Albumin 2.5 g/dL (3.4-5.0) Assessment and Plan Assessmemt and Plan Problems Medical Problems: (1) DVT (deep venous thrombosis) Status: Acute * Due to Strength/ROM Defic Tone * Normal Tone Location * Left Lower Extremity * Right Lower Extremity Activity Tolerance * Poor + Activity Tolerance/ Vitals * Pt on room air. Pre activity BP: 163/76. Post activity vitals in supine: BP: 192/78, SPO2: 96%, pulse: 66. RN updated on pt BP. Range of Motion * Pt lacking approx 25 degrees L knee extension, reporting pain, swelling. Ankle DF prom to neutral on L. no other limitations noted. Pt preferred to keep LEs in hip/knee flexion in supine. Strength * Supine: demo'd bilat arom hip abd/add, ankle DF/PF, knee flexion/extension within available limits. Limited seconday to pain and swelling in L LE. Sitting Balance * 2+ balances w/one UE Standing Balance * 1+ pt performs >50% Pain Location * Tail bone, L lower leg Pain Quality * Aching * Sore Pain Intervention * Positioning * Rest PT PAIN COMMENTS * Pt reporting pain in tailbone prior to, during and at end of session. Pt reporting pain in L lower leg with mobility. Rolling Left Assistance Required * Min Assistance Rolling Right Assistance Required * Max Assistance Supine to Sit Assistance Required * Max Assistance Sit to Supine Assistance Required * Max Assistance * Two-Person Assistance Transfer Assistance Required * Max Assistance Transfer Type * Sit to Stand Transfer Assistive Device * No Device Transfer Comments * MAX assist with sit > stand. Pt holding onto bedrail with L hand throughout. Declined further attempts at standing/transferring to wheelchair/recliner chair. Ambulation Comments * To be assessed during transfers as appropriate Stairs Comments * Pt has a ramp to enter Balance Exercises * Standing Balance Exercises Comments * static standing with unilat UE support with MN assist Other Information * RN approved PT evaluation. Pt in bed agreeable to participate. Remained in bed at end of session, all items in reach, OT present to meet pt needs, heels floated, RN udpated. Rehab Potential to Achieve Goals * Good Learning Preferences * One-on-One Instruction * Demonstration Factors Facilitating Goal Achievement * Motivation level * Cognition * Response to training Problem List (body system elements) * Impaired fnctnl mobility * Strength * ROM * Balance * Knowledge-safe techniques * Pain Clinical Presentation * Stable Evaluation Complexity Level * Low Complexity Pt/caregiver agrees with plan of care/goals * Yes Patient condition at conclusion of therapy * Pt in bed * Call light in reach * PtIn no apparent distress * Pt denies further needs Communicated Patient Care With (Name, Title) * Nona, OT; JOB Rodriguez Goal 1 - Bed Mobility Assistance Required * Independent Goal 2 - Transfers Assistance Required * Independent Goal 2 - Transfer Type * Sit to Stand * Stand-Step Goal 3 - Ambulation Assistance Required * Independent Goal 3 - Ambulation Distance * 5' Goal 3 - Ambulation Device * Roller Walker Treatment Plan * Therapeutic Exercise * Bed Mobility Training * Transfer training * Gait Training * Dynamic Balance Training Frequency of Treatment Expected * 6 visits/week Duration of Treatment Expected * 2 weeks Discharge Recommendations * [facility] Unit Discharge Recommendation - DME * Rolling Walker needed * in order to complete ADLs * and ambulation safely Discharge Recommendation Comments * Has FWW and W/C at home Comment Review of Relevant I have reviewed the following items harriett (where applicable) has been applied. Labs Laboratory Tests Test 04/04/19 16:44 04/04/19 23:15 04/05/19 04:45 04/05/19 13:11 Heparin Anti-Xa Act, Unfractionated 0.69 IU/mL (0.30-0.70) 0.33 IU/mL (0.30-0.70) 0.23 IU/mL (0.30-0.70) 0.81 IU/mL (0.30-0.70) White Blood Count 5.2 x10^3/uL (4.0-11.0) Red Blood Count 3.88 x10^6/uL (3.50-5.40) Hemoglobin 11.7 g/dL (12.0-15.5) Hematocrit 34.4 % (36.0-47.0) Mean Corpuscular Volume 89 fL (79-100) Mean Corpuscular Hemoglobin 30 pg (25-35) Mean Corpuscular Hemoglobin Concent 34 g/dL (31-37) Red Cell Distribution Width 14.7 % (11.5-14.5) Platelet Count 193 x10^3/uL (140-400) Neutrophils (%) (Auto) 55 % (31-73) Lymphocytes (%) (Auto) 29 % (24-48) Monocytes (%) (Auto) 12 % (0-9) Eosinophils (%) (Auto) 3 % (0-3) Basophils (%) (Auto) 2 % (0-3) Neutrophils # (Auto) 2.8 x10^3/uL (1.8-7.7) Lymphocytes # (Auto) 1.5 x10^3/uL (1.0-4.8) Monocytes # (Auto) 0.6 x10^3/uL (0.0-1.1) Eosinophils # (Auto) 0.2 x10^3/uL (0.0-0.7) Basophils # (Auto) 0.1 x10^3/uL (0.0-0.2) Sodium Level 140 mmol/L (136-145) Potassium Level 4.0 mmol/L (3.5-5.1) Chloride Level 106 mmol/L (98-107) Carbon Dioxide Level 25 mmol/L (21-32) Anion Gap 9 (6-14) Blood Urea Nitrogen 32 mg/dL (7-20) Creatinine 1.5 mg/dL (0.6-1.0) Estimated GFR (Cockcroft-Gault) 33.3 BUN/Creatinine Ratio 21 (6-20) Glucose Level 90 mg/dL (70-99) Calcium Level 9.1 mg/dL (8.5-10.1) Total Bilirubin 0.3 mg/dL (0.2-1.0) Aspartate Amino Transf (AST/SGOT) 17 U/L (15-37) Alanine Aminotransferase (ALT/SGPT) 8 U/L (14-59) Alkaline Phosphatase 86 U/L (46-116) Total Protein 6.2 g/dL (6.4-8.2) Albumin 2.6 g/dL (3.4-5.0) Albumin/Globulin Ratio 0.7 (1.0-1.7) Test 04/05/19 19:15 04/05/19 19:30 04/06/19 04:30 Heparin Anti-Xa Act, Unfractionated 0.52 IU/mL (0.30-0.70) 0.35 IU/mL (0.30-0.70) Urine Collection Type Unknown Urine Color Yellow Urine Clarity Clear Urine pH 5.5 Urine Specific Bowie 1.015 Urine Protein Negative mg/dL (NEG-TRACE) Urine Glucose (UA) Negative mg/dL (NEG) Urine Ketones (Stick) Negative mg/dL (NEG) Urine Blood Negative (NEG) Urine Nitrite Negative (NEG) Urine Bilirubin Negative (NEG) Urine Urobilinogen Dipstick 0.2 mg/dL (0.2 mg/dL) Urine Leukocyte Esterase Negative (NEG) Urine RBC 1-2 /HPF (0-2) Urine WBC 1-4 /HPF (0-4) Urine Squamous Epithelial Cells Few /LPF Urine Bacteria Few /HPF (0-FEW) White Blood Count 5.4 x10^3/uL (4.0-11.0) Red Blood Count 3.69 x10^6/uL (3.50-5.40) Hemoglobin 11.1 g/dL (12.0-15.5) Hematocrit 32.6 % (36.0-47.0) Mean Corpuscular Volume 88 fL (79-100) Mean Corpuscular Hemoglobin 30 pg (25-35) Mean Corpuscular Hemoglobin Concent 34 g/dL (31-37) Red Cell Distribution Width 14.5 % (11.5-14.5) Platelet Count 186 x10^3/uL (140-400) Sodium Level 143 mmol/L (136-145) Potassium Level 3.9 mmol/L (3.5-5.1) Chloride Level 108 mmol/L (98-107) Carbon Dioxide Level 26 mmol/L (21-32) Anion Gap 9 (6-14) Blood Urea Nitrogen 36 mg/dL (7-20) Creatinine 1.4 mg/dL (0.6-1.0) Estimated GFR (Cockcroft-Gault) 36.1 Glucose Level 110 mg/dL (70-99) Calcium Level 9.7 mg/dL (8.5-10.1) Phosphorus Level 2.9 mg/dL (2.6-4.7) Albumin 2.5 g/dL (3.4-5.0) Laboratory Tests Test 04/05/19 13:11 04/05/19 19:15 04/05/19 19:30 04/06/19 04:30 Heparin Anti-Xa Act, Unfractionated 0.81 IU/mL (0.30-0.70) 0.52 IU/mL (0.30-0.70) 0.35 IU/mL (0.30-0.70) Urine Collection Type Unknown Urine Color Yellow Urine Clarity Clear Urine pH 5.5 Urine Specific Bowie 1.015 Urine Protein Negative mg/dL (NEG-TRACE) Urine Glucose (UA) Negative mg/dL (NEG) Urine Ketones (Stick) Negative mg/dL (NEG) Urine Blood Negative (NEG) Urine Nitrite Negative (NEG) Urine Bilirubin Negative (NEG) Urine Urobilinogen Dipstick 0.2 mg/dL (0.2 mg/dL) Urine Leukocyte Esterase Negative (NEG) Urine RBC 1-2 /HPF (0-2) Urine WBC 1-4 /HPF (0-4) Urine Squamous Epithelial Cells Few /LPF Urine Bacteria Few /HPF (0-FEW) White Blood Count 5.4 x10^3/uL (4.0-11.0) Red Blood Count 3.69 x10^6/uL (3.50-5.40) Hemoglobin 11.1 g/dL (12.0-15.5) Hematocrit 32.6 % (36.0-47.0) Mean Corpuscular Volume 88 fL (79-100) Mean Corpuscular Hemoglobin 30 pg (25-35) Mean Corpuscular Hemoglobin Concent 34 g/dL (31-37) Red Cell Distribution Width 14.5 % (11.5-14.5) Platelet Count 186 x10^3/uL (140-400) Sodium Level 143 mmol/L (136-145) Potassium Level 3.9 mmol/L (3.5-5.1) Chloride Level 108 mmol/L (98-107) Carbon Dioxide Level 26 mmol/L (21-32) Anion Gap 9 (6-14) Blood Urea Nitrogen 36 mg/dL (7-20) Creatinine 1.4 mg/dL (0.6-1.0) Estimated GFR (Cockcroft-Gault) 36.1 Glucose Level 110 mg/dL (70-99) Calcium Level 9.7 mg/dL (8.5-10.1) Phosphorus Level 2.9 mg/dL (2.6-4.7) Albumin 2.5 g/dL (3.4-5.0) Medications Current Medications Heparin Sodium/ Dextrose 250 ml @ 0 mls/hr CONT PRN IV PER PROTOCOL Last administered on 04/05/19at 17:31; Start 04/02/19 at 20:15 Heparin Sodium (Porcine) (Heparin Sodium) 2,450 unit PRN Q6HRS PRN IV FOR UFH LEVEL LESS THAN 0.2; Start 04/02/19 at 20:15 Heparin Sodium (Porcine) (Heparin Sodium) 1,200 unit PRN Q6HRS PRN IV FOR UFH LEVEL 0.2 - 0.29 Last administered on 04/05/19at 06:47; Start 04/02/19 at 20:15 Ondansetron HCl (Zofran) 4 mg PRN Q8HRS PRN IV NAUSEA/VOMITING; Start 04/02/19 at 20:30; Stop 04/03/19 at 20:29; Status DC Fentanyl Citrate (Fentanyl 2ml Vial) 50 mcg PRN Q1HR PRN IV PAIN; Start 0 at 20:30; Stop 04/03/19 at 20:29; Status DC Heparin Sodium (Porcine) (Heparin Sodium) 6,500 unit 1X ONCE IV Last administered on 04/02/19 21:27; Start 04/02/19 at 21:15; Stop 04/02/19 at 21:16; Status DC Amlodipine Besylate (Norvasc) 5 mg BID PO Last administered on 04/06/19at 08:07; Start 04/03/19 at 09:00 Atorvastatin Calcium (Lipitor) 40 mg HS PO Last administered on 04/05/19 21:44; Start 04/03/19 at 21:00 Clonidine HCl (Catapres) 0.2 mg DAILY PO Last administered on 04/03/19 08:47; Start 04/03/19 at 09:00; Stop 04/04/19 at 14:56; Status DC Clopidogrel Bisulfate (Plavix) 75 mg DAILY PO Last administered on 04/06/19 08:08; Start 04/03/19 at 09:00 Ergocalciferol (Vitamin D2) 100,000 unit WEEKLY PO ; Start 04/09/19 at 09:00 Ferrous Sulfate (Feosol) 325 mg TID PRN PRN PO IRON REPLACEMENT; Start 04/02/19 at 23:30 Hydralazine HCl (Apresoline) 50 mg BID PO Last administered on 04/06/19 08:08; Start 04/03/19 at 09:00 Acetaminophen/ Hydrocodone Bitart (Lortab 7.5/325) 1 tab PRN Q3HRS PRN PO PAIN Last administered on 04/05/19 21:44; Start 04/02/19 at 23:30 Lisinopril (Prinivil) 20 mg BID PO Last administered on 04/06/19at 08:07; Start 04/03/19 at 09:00 Polyethylene Glycol (miraLAX PACKET) 17 gm DAILY PO Last administered on 04/05/19 08:26; Start 04/03/19 at 09:00 Senna/Docusate Sodium (Senna Plus) 1 tab DAILY PO Last administered on 04/06/19 08:06; Start 04/03/19 at 09:00 Celecoxib (CeleBREX) 200 mg 1X ONCE PO Last administered on 04/03/19at 00:07; Start 04/02/19 at 23:45; Stop 04/02/19 at 23:49; Status DC Multivitamins (Thera M Plus) 1 tab DAILY PO Last administered on 04/06/19at 08:06; Start 04/03/19 at 09:00 Hydralazine HCl (Apresoline Inj) 10 mg PRN Q6HRS PRN IVP ELEVATED BP, SEE COMMENTS; Start 04/02/19 at 23:45 Ciprofloxacin (Cipro) 500 mg BID PO Last administered on 04/05/19at 08:25; Start 04/03/19 at 09:00; Stop 04/05/19 at 14:15; Status DC Ciprofloxacin (Cipro) 500 mg 1X ONCE PO Last administered on 04/03/19at 00:08; Start 04/02/19 at 23:45; Stop 04/02/19 at 23:46; Status DC Hydralazine HCl (Apresoline) 50 mg 1X ONCE PO Last administered on 04/03/19at 00:08; Start 04/02/19 at 23:45; Stop 04/02/19 at 23:46; Status DC Info (Anti-Coagulation Monitoring By Pharmacy) 1 each PRN DAILY PRN MC SEE COMMENTS Last administered on 04/04/19at 08:50; Start 04/03/19 at 15:00 Lactobacillus Rhamnosus (Culturelle) 1 cap BID PO Last administered on 04/06/19at 08:08; Start 04/03/19 at 21:00 Clonidine HCl (Catapres) 0.1 mg DAILY PO Last administered on 04/06/19at 08:06; Start 04/04/19 at 15:00 Tamsulosin HCl (Flomax) 0.4 mg 1X ONCE PO Last administered on 04/05/19at 21:43; Start 04/05/19 at 20:00; Stop 04/05/19 at 20:01; Status DC Active Scripts Active Hydrocodone-Apap 7.5-325 (Hydrocodone Bit/Acetaminophen) 1 Each Tablet 1 Tab PO PRN Q3HRS PRN 30 Days Senna-Time S Tablet (Sennosides/Docusate Sodium) 1 Each Tablet 1 Tab PO DAILY 30 Days Reported Celebrex (Celecoxib) 200 Mg Capsule 1 Cap PO 1X Coumadin (Warfarin Sodium) 5 Mg Tablet 1 Tab PO 1X Multivitamins (Multivitamin) 1 Each Capsule 1 Each PO DAILY Ferrous Sulfate 325 Mg Tablet 325 Mg PO TID PRN Miralax (Polyethylene Glycol 3350) 17 Gm Powd.pack 1 Pkt PO DAILY Catapres (Clonidine Hcl) 0.1 Mg Tablet 0.2 Mg PO DAILY Vitamin D2 (Ergocalciferol (Vitamin D2)) 50,000 Unit Capsule 100,000 Unit PO WEEKLY Lisinopril 20 Mg Tablet 20 Mg PO BID Hydralazine Hcl 50 Mg Tablet 50 Mg PO BID Clopidogrel (Clopidogrel Bisulfate) 75 Mg Tablet 75 Mg PO DAILY Amlodipine Besylate 5 Mg Tablet 5 Mg PO BID Atorvastatin Calcium 40 Mg Tablet 40 Mg PO HS Vitals/I & O Vital Sign - Last 24 Hours 04/05/19 04/05/19 04/05/19 04/05/19 15:00 19:20 20:36 21:44 Temp 98.4 98.6 98.4 98.6 Pulse 70 62 62 Resp 16 21 B/P (MAP) 106/53 (70) 110/53 (72) 110/53 Pulse Ox 99 96 O2 Delivery Room Air Room Air Room Air 04/05/19 04/05/19 04/05/19 04/06/19 21:44 21:45 23:36 03:35 Temp 98.1 98.2 98.1 98.2 Pulse 62 62 53 57 Resp 20 18 B/P (MAP) 110/53 110/53 107/56 (73) 139/65 (89) Pulse Ox 98 96 O2 Delivery Room Air Room Air 04/06/19 04/06/19 04/06/19 04/06/19 07:00 08:00 08:06 08:07 Temp 98.1 98.1 Pulse 57 57 57 Resp 16 B/P (MAP) 155/69 (97) 155/69 155/69 Pulse Ox 97 O2 Delivery Room Air Room Air 04/06/19 04/06/19 04/06/19 08:07 08:08 11:00 Temp 98.0 98.0 Pulse 57 57 69 Resp 18 B/P (MAP) 155/69 155/69 137/62 (87) Pulse Ox 95 O2 Delivery Room Air Intake and Output 04/05/19 04/05/19 04/06/19 15:00 23:00 07:00 Intake Total 120 ml 250 ml Output Total 1000 ml 100 ml Balance -880 ml 150 ml ALLISON ERICKSON MD Apr 06, 2019 12:12
[2019-04-06] MEDS: APIXABAN 5 MG TABLET. PO SCH ×2 (12:40→23:11)
--- NOTE | 2019-04-06 14:07 | CONS ---
DATE OF CONSULTATION: 04/06/2019 REQUESTING PHYSICIAN: Hospitalist. REASON FOR CONSULTATION: Renal failure. HISTORY OF PRESENT ILLNESS: This is an 83-year-old female with a history of hypertension and chronic anticoagulation. She presents with left lower extremity pain and swelling. Doppler imaging in the Emergency Department revealed extensive deep venous thrombosis. She has been evaluated by Vascular Surgery and plan is not to pursue lytic therapy. Due to increased level of azotemia, Nephrology evaluation requested. The patient denies history of known renal disease, nephrolithiasis, or gross hematuria. PAST MEDICAL HISTORY: Hypertension, degenerative arthritis, hyperlipidemia, chronic anticoagulation, anemia, and constipation. ALLERGIES: MEPERIDINE. MEDICATIONS: Reviewed per medication list and did include lisinopril at home as well as Celebrex. FAMILY HISTORY: Noncontributory. SOCIAL HISTORY: The patient resides with assistance. REVIEW OF SYSTEMS: No headache, sinus problem, nasal drainage, epistaxis, or change in vision or hearing. No difficulty swallowing. No fever, chills, cough, sputum production, or hemoptysis. No chest pain, shortness of breath, PND, orthopnea, or dyspnea on exertion. No abdominal pain. No nausea, vomiting, diarrhea, seizures, or malignancies. PHYSICAL EXAMINATION: GENERAL APPEARANCE: The patient is awake and conversant. HEENT: Clear. NECK: No increased JVD. No thyromegaly, mass, or adenopathy. LUNGS: Clear. CARDIAC: Without S3 or rub. ABDOMEN: Obese. Bowel sounds are present. Nontender. EXTREMITIES: 1+ bilateral lower extremity edema. NEUROLOGIC: Nonfocal and nonlocalized. PSYCHIATRIC: Fair attention to detail. Appropriate affect. LABORATORY DATA: Hemoglobin 11.1, hematocrit 32.6, white count 5.4, and platelets 186. Sodium 133, potassium 3.9, chloride 108, CO2 of 26, BUN 36, creatinine 1.4, and GFR is 36 mL per minute. Urinalysis, specific gravity of 1.015 and negative protein. IMPRESSION: 1. Chronic kidney disease, stage 3, likely secondary to hypertensive nephrosclerosis. 2. Deep venous thrombosis. RECOMMENDATIONS: 1. Anticoagulation as you are doing. 2. Renal ultrasound has been obtained. No hydronephrosis or hydroureter. There are bilateral renal cysts. Right kidney is 10.3 cm and left 9.9 cm. 3. Maintain blood pressure control. 4. Discontinue use of NSAIDs. 5. We will follow. FRANKI VERA MD DR: JUAN/deric JOB#: [id number] / [id number]
[2019-04-06 15:00] VITALS: BP 114/55
[2019-04-06 20:32] VITALS: BP 123/60
[2019-04-06 23:00] VITALS: BP 125/60
[2019-04-06] MEDS: ATORVASTATIN CALCIUM 40 MG TABLET. PO SCH (23:12)
[2019-04-07 03:32] VITALS: BP 139/64
[2019-04-07 05:05] LABS: BASO # 0.1 x10^3/uL (0.0-0.2); BASO % 1 % (0-3); EOS # 0.2 x10^3/uL (0.0-0.7); EOS % 3 % (0-3); HEMATOCRIT 30.9 % (36.0-47.0); HEMOGLOBIN 10.6 g/dL (12.0-15.5); LYMPH # 1.5 x10^3/uL (1.0-4.8); LYMPH % 27 % (24-48); MEAN CORPUSCULAR HEMOGLOBIN 31 pg (25-35); MEAN CORPUSCULAR HGB CONC 34 g/dL (31-37); MEAN CORPUSCULAR VOLUME 89 fL (79-100); MONO # 0.6 x10^3/uL (0.0-1.1); MONO % 11 % (0-9); NEUT # 3.2 x10^3/uL (1.8-7.7); NEUT % 58 % (31-73); PLATELET COUNT 183 x10^3/uL (140-400); RED BLOOD COUNT 3.47 x10^6/uL (3.50-5.40); RED CELL DISTRIBUTION WIDTH 14.7 % (11.5-14.5); WHITE BLOOD COUNT 5.6 x10^3/uL (4.0-11.0)
[2019-04-07 06:17] LABS: ALBUMIN 2.5 g/dL (3.4-5.0); CALCIUM 9.5 mg/dL (8.5-10.1); CREATININE 1.3 mg/dL (0.6-1.0); GFR 39.3; PHOSPHORUS 3.2 mg/dL (2.6-4.7); POTASSIUM 3.8 mmol/L (3.5-5.1)
[2019-04-07 07:09] VITALS: BP 123/60
--- NOTE | 2019-04-07 08:52 | PDOC ---
PROGRESS NOTES History of Present Illness History of Present Illness ASSESSMENT AND PLAN: Extensive deep venous thrombosis. Occlusive DVT in the entire left lower extremity venous system from the common femoral vein down to the segmental and visualized calf veins. bradycardia NAKIA admitted. anticoagulation, consult Vascular Surgery. No surgical intervention recommended. physical therapy, occupational therapy, IV hydration, full code, p.r.n. fentanyl. Trend labs, lower extremity arterial studies. cvc bed RENAL US Consult nephrology, may need to hold lisinopril reduce clonidine dose Prognosis guarded. No surgical intervention recommended. consult Hematology. Discharge Recommendations * [facility] Discharge Recommendation - DME * Rolling Walker needed * in order to complete ADLs * and ambulation safely d/w RN /04/07 WEAKNESS slow to resolve cont eliquis 10mg po bid x 7 days, then 5 mg bid x 3 months Vitals Vitals Vital Signs Date Time Temp Pulse Resp B/P (MAP) Pulse Ox O2 Delivery O2 Flow Rate FiO2 04/07/19 07:09 98.5 55 16 123/60 (81) 95 Room Air 98.5 Physical Exam General: Alert, Oriented X3, Cooperative, mild distress Heart: Regular rate, Normal S2 Abdomen: Normal bowel sounds Extremities: No cyanosis, Other (2+ RLE and 3+ to LLE with petechial flat lesions) Skin: No breakdown Labs LABS Laboratory Tests Test 04/07/19 04:45 White Blood Count 5.6 x10^3/uL (4.0-11.0) Red Blood Count 3.47 x10^6/uL (3.50-5.40) Hemoglobin 10.6 g/dL (12.0-15.5) Hematocrit 30.9 % (36.0-47.0) Mean Corpuscular Volume 89 fL (79-100) Mean Corpuscular Hemoglobin 31 pg (25-35) Mean Corpuscular Hemoglobin Concent 34 g/dL (31-37) Red Cell Distribution Width 14.7 % (11.5-14.5) Platelet Count 183 x10^3/uL (140-400) Neutrophils (%) (Auto) 58 % (31-73) Lymphocytes (%) (Auto) 27 % (24-48) Monocytes (%) (Auto) 11 % (0-9) Eosinophils (%) (Auto) 3 % (0-3) Basophils (%) (Auto) 1 % (0-3) Neutrophils # (Auto) 3.2 x10^3/uL (1.8-7.7) Lymphocytes # (Auto) 1.5 x10^3/uL (1.0-4.8) Monocytes # (Auto) 0.6 x10^3/uL (0.0-1.1) Eosinophils # (Auto) 0.2 x10^3/uL (0.0-0.7) Basophils # (Auto) 0.1 x10^3/uL (0.0-0.2) Sodium Level 141 mmol/L (136-145) Potassium Level 3.8 mmol/L (3.5-5.1) Chloride Level 109 mmol/L (98-107) Carbon Dioxide Level 25 mmol/L (21-32) Anion Gap 7 (6-14) Blood Urea Nitrogen 32 mg/dL (7-20) Creatinine 1.3 mg/dL (0.6-1.0) Estimated GFR (Cockcroft-Gault) 39.3 Glucose Level 105 mg/dL (70-99) Calcium Level 9.5 mg/dL (8.5-10.1) Phosphorus Level 3.2 mg/dL (2.6-4.7) Albumin 2.5 g/dL (3.4-5.0) Assessment and Plan Assessmemt and Plan Problems Medical Problems: (1) DVT (deep venous thrombosis) Status: Acute Comment Review of Relevant I have reviewed the following items harriett (where applicable) has been applied. Labs Laboratory Tests Test 04/05/19 13:11 04/05/19 19:15 04/05/19 19:30 04/06/19 04:30 Heparin Anti-Xa Act, Unfractionated 0.81 IU/mL (0.30-0.70) 0.52 IU/mL (0.30-0.70) 0.35 IU/mL (0.30-0.70) Urine Collection Type Unknown Urine Color Yellow Urine Clarity Clear Urine pH 5.5 Urine Specific Ollie 1.015 Urine Protein Negative mg/dL (NEG-TRACE) Urine Glucose (UA) Negative mg/dL (NEG) Urine Ketones (Stick) Negative mg/dL (NEG) Urine Blood Negative (NEG) Urine Nitrite Negative (NEG) Urine Bilirubin Negative (NEG) Urine Urobilinogen Dipstick 0.2 mg/dL (0.2 mg/dL) Urine Leukocyte Esterase Negative (NEG) Urine RBC 1-2 /HPF (0-2) Urine WBC 1-4 /HPF (0-4) Urine Squamous Epithelial Cells Few /LPF Urine Bacteria Few /HPF (0-FEW) White Blood Count 5.4 x10^3/uL (4.0-11.0) Red Blood Count 3.69 x10^6/uL (3.50-5.40) Hemoglobin 11.1 g/dL (12.0-15.5) Hematocrit 32.6 % (36.0-47.0) Mean Corpuscular Volume 88 fL (79-100) Mean Corpuscular Hemoglobin 30 pg (25-35) Mean Corpuscular Hemoglobin Concent 34 g/dL (31-37) Red Cell Distribution Width 14.5 % (11.5-14.5) Platelet Count 186 x10^3/uL (140-400) Sodium Level 143 mmol/L (136-145) Potassium Level 3.9 mmol/L (3.5-5.1) Chloride Level 108 mmol/L (98-107) Carbon Dioxide Level 26 mmol/L (21-32) Anion Gap 9 (6-14) Blood Urea Nitrogen 36 mg/dL (7-20) Creatinine 1.4 mg/dL (0.6-1.0) Estimated GFR (Cockcroft-Gault) 36.1 Glucose Level 110 mg/dL (70-99) Calcium Level 9.7 mg/dL (8.5-10.1) Phosphorus Level 2.9 mg/dL (2.6-4.7) Albumin 2.5 g/dL (3.4-5.0) Test 04/07/19 04:45 White Blood Count 5.6 x10^3/uL (4.0-11.0) Red Blood Count 3.47 x10^6/uL (3.50-5.40) Hemoglobin 10.6 g/dL (12.0-15.5) Hematocrit 30.9 % (36.0-47.0) Mean Corpuscular Volume 89 fL (79-100) Mean Corpuscular Hemoglobin 31 pg (25-35) Mean Corpuscular Hemoglobin Concent 34 g/dL (31-37) Red Cell Distribution Width 14.7 % (11.5-14.5) Platelet Count 183 x10^3/uL (140-400) Neutrophils (%) (Auto) 58 % (31-73) Lymphocytes (%) (Auto) 27 % (24-48) Monocytes (%) (Auto) 11 % (0-9) Eosinophils (%) (Auto) 3 % (0-3) Basophils (%) (Auto) 1 % (0-3) Neutrophils # (Auto) 3.2 x10^3/uL (1.8-7.7) Lymphocytes # (Auto) 1.5 x10^3/uL (1.0-4.8) Monocytes # (Auto) 0.6 x10^3/uL (0.0-1.1) Eosinophils # (Auto) 0.2 x10^3/uL (0.0-0.7) Basophils # (Auto) 0.1 x10^3/uL (0.0-0.2) Sodium Level 141 mmol/L (136-145) Potassium Level 3.8 mmol/L (3.5-5.1) Chloride Level 109 mmol/L (98-107) Carbon Dioxide Level 25 mmol/L (21-32) Anion Gap 7 (6-14) Blood Urea Nitrogen 32 mg/dL (7-20) Creatinine 1.3 mg/dL (0.6-1.0) Estimated GFR (Cockcroft-Gault) 39.3 Glucose Level 105 mg/dL (70-99) Calcium Level 9.5 mg/dL (8.5-10.1) Phosphorus Level 3.2 mg/dL (2.6-4.7) Albumin 2.5 g/dL (3.4-5.0) Laboratory Tests Test 04/07/19 04:45 White Blood Count 5.6 x10^3/uL (4.0-11.0) Red Blood Count 3.47 x10^6/uL (3.50-5.40) Hemoglobin 10.6 g/dL (12.0-15.5) Hematocrit 30.9 % (36.0-47.0) Mean Corpuscular Volume 89 fL (79-100) Mean Corpuscular Hemoglobin 31 pg (25-35) Mean Corpuscular Hemoglobin Concent 34 g/dL (31-37) Red Cell Distribution Width 14.7 % (11.5-14.5) Platelet Count 183 x10^3/uL (140-400) Neutrophils (%) (Auto) 58 % (31-73) Lymphocytes (%) (Auto) 27 % (24-48) Monocytes (%) (Auto) 11 % (0-9) Eosinophils (%) (Auto) 3 % (0-3) Basophils (%) (Auto) 1 % (0-3) Neutrophils # (Auto) 3.2 x10^3/uL (1.8-7.7) Lymphocytes # (Auto) 1.5 x10^3/uL (1.0-4.8) Monocytes # (Auto) 0.6 x10^3/uL (0.0-1.1) Eosinophils # (Auto) 0.2 x10^3/uL (0.0-0.7) Basophils # (Auto) 0.1 x10^3/uL (0.0-0.2) Sodium Level 141 mmol/L (136-145) Potassium Level 3.8 mmol/L (3.5-5.1) Chloride Level 109 mmol/L (98-107) Carbon Dioxide Level 25 mmol/L (21-32) Anion Gap 7 (6-14) Blood Urea Nitrogen 32 mg/dL (7-20) Creatinine 1.3 mg/dL (0.6-1.0) Estimated GFR (Cockcroft-Gault) 39.3 Glucose Level 105 mg/dL (70-99) Calcium Level 9.5 mg/dL (8.5-10.1) Phosphorus Level 3.2 mg/dL (2.6-4.7) Albumin 2.5 g/dL (3.4-5.0) Medications Current Medications Heparin Sodium/ Dextrose 250 ml @ 0 mls/hr CONT PRN IV PER PROTOCOL Last administered on 04/05/19at 17:31; Start 04/02/19 at 20:15; Stop 04/06/19 at 12:19; Status DC Heparin Sodium (Porcine) (Heparin Sodium) 2,450 unit PRN Q6HRS PRN IV FOR UFH LEVEL LESS THAN 0.2; Start 04/02/19 at 20:15; Stop 04/06/19 at 12:20; Status DC Heparin Sodium (Porcine) (Heparin Sodium) 1,200 unit PRN Q6HRS PRN IV FOR UFH LEVEL 0.2 - 0.29 Last administered on 04/05/19at 06:47; Start 04/02/19 at 20:15; Stop 04/06/19 at 12:20; Status DC Ondansetron HCl (Zofran) 4 mg PRN Q8HRS PRN IV NAUSEA/VOMITING; Start 04/02/19 at 20:30; Stop 04/03/19 at 20:29; Status DC Fentanyl Citrate (Fentanyl 2ml Vial) 50 mcg PRN Q1HR PRN IV PAIN; Start 04/02/19 at 20:30; Stop 04/03/19 at 20:29; Status DC Heparin Sodium (Porcine) (Heparin Sodium) 6,500 unit 1X ONCE IV Last administered on 04/02/19at 21:27; Start 04/02/19 at 21:15; Stop 04/02/19 at 21:16; Status DC Amlodipine Besylate (Norvasc) 5 mg BID PO Last administered on 04/06/19at 23:12; Start 04/03/19 at 09:00 Atorvastatin Calcium (Lipitor) 40 mg HS PO Last administered on 04/06/19at 23:12; Start 04/03/19 at 21:00 Clonidine HCl (Catapres) 0.2 mg DAILY PO Last administered on 04/03/19at 08:47; Start 04/03/19 at 09:00; Stop 04/04/19 at 14:56; Status DC Clopidogrel Bisulfate (Plavix) 75 mg DAILY PO Last administered on 04/06/19at 08:08; Start 04/03/19 at 09:00 Ergocalciferol (Vitamin D2) 100,000 unit WEEKLY PO ; Start 04/09/19 at 09:00 Ferrous Sulfate (Feosol) 325 mg TID PRN PRN PO IRON REPLACEMENT; Start 04/02/19 at 23:30 Hydralazine HCl (Apresoline) 50 mg BID PO Last administered on 04/06/19at 23:12; Start 04/03/19 at 09:00 Acetaminophen/ Hydrocodone Bitart (Lortab 7.5/325) 1 tab PRN Q3HRS PRN PO PAIN Last administered on 04/05/19at 21:44; Start 04/02/19 at 23:30 Lisinopril (Prinivil) 20 mg BID PO Last administered on 04/06/19 23:12; Start 04/03/19 at 09:00 Polyethylene Glycol (miraLAX PACKET) 17 gm DAILY PO Last administered on 04/05/19 08:26; Start 04/03/19 at 09:00 Senna/Docusate Sodium (Senna Plus) 1 tab DAILY PO Last administered on 04/06/19 08:06; Start 04/03/19 at 09:00 Celecoxib (CeleBREX) 200 mg 1X ONCE PO Last administered on 04/03/19at 00:07; Start 04/02/19 at 23:45; Stop 04/02/19 at 23:49; Status DC Multivitamins (Thera M Plus) 1 tab DAILY PO Last administered on 04/06/19 08:06; Start 04/03/19 at 09:00 Hydralazine HCl (Apresoline Inj) 10 mg PRN Q6HRS PRN IVP ELEVATED BP, SEE COMMENTS; Start 04/02/19 at 23:45 Ciprofloxacin (Cipro) 500 mg BID PO Last administered on 04/05/19at 08:25; Start 04/03/19 at 09:00; Stop 04/05/19 at 14:15; Status DC Ciprofloxacin (Cipro) 500 mg 1X ONCE PO Last administered on 04/03/19at 00:08; Start 04/02/19 at 23:45; Stop 04/02/19 at 23:46; Status DC Hydralazine HCl (Apresoline) 50 mg 1X ONCE PO Last administered on 04/03/19at 00:08; Start 04/02/19 at 23:45; Stop 04/02/19 at 23:46; Status DC Info (Anti-Coagulation Monitoring By Pharmacy) 1 each PRN DAILY PRN MC SEE COMMENTS Last administered on 04/04/19at 08:50; Start 04/03/19 at 15:00 Lactobacillus Rhamnosus (Culturelle) 1 cap BID PO Last administered on 04/06/19at 23:12; Start 04/03/19 at 21:00 Clonidine HCl (Catapres) 0.1 mg DAILY PO Last administered on 04/06/19at 08:06; Start 04/04/19 at 15:00 Tamsulosin HCl (Flomax) 0.4 mg 1X ONCE PO Last administered on 04/05/19at 21:43; Start 04/05/19 at 20:00; Stop 04/05/19 at 20:01; Status DC Apixaban (Eliquis) 10 mg BID PO Last administered on 04/06/19at 23:11; Start 04/06/19 at 12:00; Stop 04/12/19 at 21:01 Active Scripts Active Hydrocodone-Apap 7.5-325 (Hydrocodone Bit/Acetaminophen) 1 Each Tablet 1 Tab PO PRN Q3HRS PRN 30 Days Senna-Time S Tablet (Sennosides/Docusate Sodium) 1 Each Tablet 1 Tab PO DAILY 30 Days Reported Celebrex (Celecoxib) 200 Mg Capsule 1 Cap PO 1X Coumadin (Warfarin Sodium) 5 Mg Tablet 1 Tab PO 1X Multivitamins (Multivitamin) 1 Each Capsule 1 Each PO DAILY Ferrous Sulfate 325 Mg Tablet 325 Mg PO TID PRN Miralax (Polyethylene Glycol 3350) 17 Gm Powd.pack 1 Pkt PO DAILY Catapres (Clonidine Hcl) 0.1 Mg Tablet 0.2 Mg PO DAILY Vitamin D2 (Ergocalciferol (Vitamin D2)) 50,000 Unit Capsule 100,000 Unit PO WEEKLY Lisinopril 20 Mg Tablet 20 Mg PO BID Hydralazine Hcl 50 Mg Tablet 50 Mg PO BID Clopidogrel (Clopidogrel Bisulfate) 75 Mg Tablet 75 Mg PO DAILY Amlodipine Besylate 5 Mg Tablet 5 Mg PO BID Atorvastatin Calcium 40 Mg Tablet 40 Mg PO HS Vitals/I & O Vital Sign - Last 24 Hours 04/06/19 04/06/19 04/06/19 04/06/19 11:00 15:00 20:32 20:34 Temp 98.0 98.4 98.1 98.0 98.4 98.1 Pulse 69 68 74 Resp 18 18 20 B/P (MAP) 137/62 (87) 114/55 (74) 123/60 (81) Pulse Ox 95 97 95 O2 Delivery Room Air Room Air Room Air Room Air 04/06/19 04/06/19 04/06/19 04/06/19 23:00 23:12 23:12 23:12 Temp 98.5 98.5 Pulse 59 64 74 74 Resp 16 B/P (MAP) 125/60 (81) 123/60 123/60 123/60 Pulse Ox 96 O2 Delivery Room Air 04/07/19 04/07/19 03:32 07:09 Temp 98.3 98.5 98.3 98.5 Pulse 69 55 Resp 16 16 B/P (MAP) 139/64 (89) 123/60 (81) Pulse Ox 96 95 O2 Delivery Room Air Room Air Intake and Output 04/06/19 04/06/19 04/07/19 15:00 23:00 07:00 Intake Total 200 ml 0 ml Output Total 450 ml 250 ml Balance -250 ml -250 ml ALLISON ERICKSON MD Apr 07, 2019 08:52
[2019-04-07] MEDS: LISINOPRIL 20 MG TABLET PO SCH ×2 (09:27→21:39)
[2019-04-07] MEDS: cloNIDine HCL 0.1 MG TABLET PO SCH (09:27)
[2019-04-07] MEDS: POLYETHYLENE GLYCOL 3350 17 GM PACKET. PO SCH (09:27)
[2019-04-07] MEDS: LACTOBACILLUS RHAMNOSUS GG 1 CAPSULE. PO SCH ×2 (09:27→21:38)
[2019-04-07] MEDS: amLODIPine BESYLATE 5 MG TABLET PO SCH ×2 (09:27→21:47)
[2019-04-07] MEDS: MULTIVITAMIN with MINERAL TABLET. PO SCH (09:28)
[2019-04-07] MEDS: APIXABAN 5 MG TABLET. PO SCH ×2 (09:28→21:38)
[2019-04-07] MEDS: CLOPIDOGREL BISULFATE 75 MG TABLET PO SCH (09:28)
[2019-04-07] MEDS: SENNOSIDES/DOCUSATE 8.6/50MG TABLET. PO SCH (09:28)
--- NOTE | 2019-04-07 10:04 | PDOC ---
SUBJECTIVE Subjective S: doing better, too weak for dc she tells me O: Gen: NAD, eating breakfast Ext: LLE swelling improved, min erythema Labs: Hb 10.6, plt nl A/P: She is an 83-year-old female, with new diagnosis of left lower extremity DVT, and has been evaluated by vascular surgery with no surgical intervention needed improving on apixaban LLE DVT: cont apixaban 10 mg twice a day 1 week followed by 5 mg twice a day 3 months and she can follow-up with us afterwards to discuss duration after initial 3 months, could use lower extremity compression stockings as tolerated Cardiac history: Defer to primary, would recommend stopping Plavix if safe, her RN will check w/ cardiology today, appreciated Renal insuff: rec avoiding NSAIDs disposition: After continued clinical improvement, may need rehab? Thank you kindly. OBJECTIVE Vital Signs Vital Signs Date Time Temp Pulse Resp B/P (MAP) Pulse Ox O2 Delivery O2 Flow Rate FiO2 04/07/19 09:28 77 123/60 04/07/19 09:27 77 123/60 04/07/19 09:27 77 123/60 04/07/19 09:27 77 123/60 04/07/19 08:00 Room Air 04/07/19 07:09 98.5 55 16 123/60 (81) 95 Room Air 98.5 04/07/19 03:32 98.3 69 16 139/64 (89) 96 Room Air 98.3 04/06/19 23:12 74 123/60 04/06/19 23:12 74 123/60 04/06/19 23:12 64 123/60 04/06/19 23:00 98.5 59 16 125/60 (81) 96 Room Air 98.5 04/06/19 20:34 Room Air 04/06/19 20:32 98.1 74 20 123/60 (81) 95 Room Air 98.1 04/06/19 15:00 98.4 68 18 114/55 (74) 97 Room Air 98.4 04/06/19 11:00 98.0 69 18 137/62 (87) 95 Room Air 98.0 I & O Intake and Output 04/07/19 07:00 Intake Total 200 ml Output Total 700 ml Balance -500 ml Intake Oral 200 ml Output Urine Total 700 ml # Voids 1 # Bowel Movements 1 COMMENT Lab Laboratory Tests Test 04/07/19 04:45 White Blood Count 5.6 x10^3/uL (4.0-11.0) Red Blood Count 3.47 x10^6/uL (3.50-5.40) Hemoglobin 10.6 g/dL (12.0-15.5) Hematocrit 30.9 % (36.0-47.0) Mean Corpuscular Volume 89 fL (79-100) Mean Corpuscular Hemoglobin 31 pg (25-35) Mean Corpuscular Hemoglobin Concent 34 g/dL (31-37) Red Cell Distribution Width 14.7 % (11.5-14.5) Platelet Count 183 x10^3/uL (140-400) Neutrophils (%) (Auto) 58 % (31-73) Lymphocytes (%) (Auto) 27 % (24-48) Monocytes (%) (Auto) 11 % (0-9) Eosinophils (%) (Auto) 3 % (0-3) Basophils (%) (Auto) 1 % (0-3) Neutrophils # (Auto) 3.2 x10^3/uL (1.8-7.7) Lymphocytes # (Auto) 1.5 x10^3/uL (1.0-4.8) Monocytes # (Auto) 0.6 x10^3/uL (0.0-1.1) Eosinophils # (Auto) 0.2 x10^3/uL (0.0-0.7) Basophils # (Auto) 0.1 x10^3/uL (0.0-0.2) Sodium Level 141 mmol/L (136-145) Potassium Level 3.8 mmol/L (3.5-5.1) Chloride Level 109 mmol/L (98-107) Carbon Dioxide Level 25 mmol/L (21-32) Anion Gap 7 (6-14) Blood Urea Nitrogen 32 mg/dL (7-20) Creatinine 1.3 mg/dL (0.6-1.0) Estimated GFR (Cockcroft-Gault) 39.3 Glucose Level 105 mg/dL (70-99) Calcium Level 9.5 mg/dL (8.5-10.1) Phosphorus Level 3.2 mg/dL (2.6-4.7) Albumin 2.5 g/dL (3.4-5.0) MIKAELA MULLEN MD Apr 07, 2019 10:04
--- NOTE | 2019-04-07 10:05 | PDOC ---
SUBJECTIVE ROS sleeping comfortable, No acute concerns voiced by RN OBJECTIVE Vital Signs Vital Signs Date Time Temp Pulse Resp B/P (MAP) Pulse Ox O2 Delivery O2 Flow Rate FiO2 04/07/19 09:28 77 123/60 04/07/19 08:00 Room Air 04/07/19 07:09 98.5 16 95 98.5 I & 0 Intake and Output 04/07/19 07:00 Intake Total 200 ml Output Total 700 ml Balance -500 ml Intake Oral 200 ml Output Urine Total 700 ml # Voids 1 # Bowel Movements 1 PHYSICAL EXAM Physical Exam GENERAL APPEARANCE: nad HEENT: OM moist NECK: supple LUNGS: Clear, Non labored breathing CARDIAC: Without S3 or rub. ABDOMEN: Obese. Bowel sounds are present. Nontender. EXTREMITIES: trace bilateral lower extremity edema. NEUROLOGIC: grossly Normal - now has velez 2/2 retention DIAGNOSIS/ASSESSMENT Assessment & Plan NAKIA- Pre-renal / Use of NSAID's / Urine retention Has indwelling velez now, Renal function Improving , supportive care, avoid nephrotoxins, Monitor No hydronephrosis or hydroureter on US Chronic kidney disease, stage 3, likely secondary to hypertensive nephrosclerosis. Was on NSAID's Bilateral renal cysts. Deep venous thrombosis. HTN- Maintain blood pressure control. COMMENT/RELEVANT DATA Meds Current Medications Medications (Trade) Dose Ordered Sig/Butch Start Time Stop Time Status Last Admin Dose Admin Acetaminophen/ Hydrocodone Bitart (Lortab 7.5/325) 1 tab PRN Q3HRS PRN 04/02/19 23:30 04/05/19 21:44 1 TAB Amlodipine Besylate (Norvasc) 5 mg BID 04/03/19 09:00 04/07/19 09:27 5 MG Apixaban (Eliquis) 10 mg BID 04/06/19 12:00 04/12/19 21:01 04/07/19 09:28 10 MG Atorvastatin Calcium (Lipitor) 40 mg HS 04/03/19 21:00 04/06/19 23:12 40 MG Celecoxib (CeleBREX) 200 mg 1X ONCE 04/02/19 23:45 04/02/19 23:49 DC 04/03/19 00:07 200 MG Ciprofloxacin (Cipro) 500 mg 1X ONCE 04/02/19 23:45 04/02/19 23:46 DC 04/03/19 00:08 500 MG Clonidine HCl (Catapres) 0.1 mg DAILY 04/04/19 15:00 04/07/19 09:27 0.1 MG Clopidogrel Bisulfate (Plavix) 75 mg DAILY 04/03/19 09:00 04/07/19 09:28 75 MG Ergocalciferol (Vitamin D2) 100,000 unit WEEKLY 04/09/19 09:00 Fentanyl Citrate (Fentanyl 2ml Vial) 50 mcg PRN Q1HR PRN 04/02/19 20:30 04/03/19 20:29 DC Ferrous Sulfate (Feosol) 325 mg TIDWMEALS 04/07/19 12:00 Heparin Sodium (Porcine) (Heparin Sodium) 6,500 unit 1X ONCE 04/02/19 21:15 04/02/19 21:16 DC 04/02/19 21:27 6,500 UNIT Heparin Sodium/ Dextrose 250 ml @ 0 mls/hr CONT PRN 04/02/19 20:15 04/06/19 12:19 DC 04/05/19 17:31 8.9 MLS/HR Hydralazine HCl (Apresoline Inj) 10 mg PRN Q6HRS PRN 04/02/19 23:45 Hydralazine HCl (Apresoline) 50 mg 1X ONCE 04/02/19 23:45 04/02/19 23:46 DC 04/03/19 00:08 50 MG Info (Anti-Coagulation Monitoring By Pharmacy) 1 each PRN DAILY PRN 04/03/19 15:00 04/04/19 08:50 1 EACH Lactobacillus Rhamnosus (Culturelle) 1 cap BID 04/03/19 21:00 04/07/19 09:27 1 CAP Lisinopril (Prinivil) 20 mg BID 04/03/19 09:00 04/07/19 09:27 20 MG Multivitamins (Thera M Plus) 1 tab DAILY 04/03/19 09:00 04/07/19 09:28 1 TAB Ondansetron HCl (Zofran) 4 mg PRN Q8HRS PRN 04/02/19 20:30 04/03/19 20:29 DC Polyethylene Glycol (miraLAX PACKET) 17 gm DAILY 04/03/19 09:00 04/07/19 09:27 17 GM Senna/Docusate Sodium (Senna Plus) 1 tab DAILY 04/03/19 09:00 04/07/19 09:28 1 TAB Tamsulosin HCl (Flomax) 0.4 mg 1X ONCE 04/05/19 20:00 04/05/19 20:01 DC 04/05/19 21:43 0.4 MG Lab Laboratory Tests Test 04/07/19 04:45 White Blood Count 5.6 x10^3/uL (4.0-11.0) Red Blood Count 3.47 x10^6/uL (3.50-5.40) Hemoglobin 10.6 g/dL (12.0-15.5) Hematocrit 30.9 % (36.0-47.0) Mean Corpuscular Volume 89 fL (79-100) Mean Corpuscular Hemoglobin 31 pg (25-35) Mean Corpuscular Hemoglobin Concent 34 g/dL (31-37) Red Cell Distribution Width 14.7 % (11.5-14.5) Platelet Count 183 x10^3/uL (140-400) Neutrophils (%) (Auto) 58 % (31-73) Lymphocytes (%) (Auto) 27 % (24-48) Monocytes (%) (Auto) 11 % (0-9) Eosinophils (%) (Auto) 3 % (0-3) Basophils (%) (Auto) 1 % (0-3) Neutrophils # (Auto) 3.2 x10^3/uL (1.8-7.7) Lymphocytes # (Auto) 1.5 x10^3/uL (1.0-4.8) Monocytes # (Auto) 0.6 x10^3/uL (0.0-1.1) Eosinophils # (Auto) 0.2 x10^3/uL (0.0-0.7) Basophils # (Auto) 0.1 x10^3/uL (0.0-0.2) Sodium Level 141 mmol/L (136-145) Potassium Level 3.8 mmol/L (3.5-5.1) Chloride Level 109 mmol/L (98-107) Carbon Dioxide Level 25 mmol/L (21-32) Anion Gap 7 (6-14) Blood Urea Nitrogen 32 mg/dL (7-20) Creatinine 1.3 mg/dL (0.6-1.0) Estimated GFR (Cockcroft-Gault) 39.3 Glucose Level 105 mg/dL (70-99) Calcium Level 9.5 mg/dL (8.5-10.1) Phosphorus Level 3.2 mg/dL (2.6-4.7) Albumin 2.5 g/dL (3.4-5.0) Results All relevant outside records, renal labs, imaging studies, telemetry/EKG's were reviewed. KIRTI GARCIA MD Apr 07, 2019 10:05
[2019-04-07 10:15] VITALS: BP 120/56
[2019-04-07] MEDS: FERROUS SULFATE 325 MG TABLET. PO SCH ×2 (11:16→16:28)
[2019-04-07] MEDS: ANTI-COAG MONITOR BY PHARMACY. MC PRN (11:25)
--- NOTE | 2019-04-07 11:51 | NUR ---
SS following up with discharge planning. PT/OT recommended [facility] unit. SS met with pt and discussed with pt's son. Both pt and pt's son are refusing [facility] unit and home healthcare at this time. Pt's son reported that family cares for pt at home and they have tried both skilled rehab and home healthcare in the past and do not like it. Pt's RN notified. SS will continue to follow for discharge planning.
[2019-04-07 14:51] VITALS: BP 143/65
--- NOTE | 2019-04-07 17:09 | NUR ---
Wound Care: Wound care consult. Stage 1 PU on coccyx, wound cleansed and barrier cream applied. No other wound noted upon skin assessment. Pt on P500 bed. Heel floated on pillows, pt left turned to her left. Wound care will follow up on 04/14.
[2019-04-07 19:44] VITALS: BP 127/57
[2019-04-07] MEDS: ATORVASTATIN CALCIUM 40 MG TABLET. PO SCH (21:39)
[2019-04-07] MEDS: HYDROcodone/APAP 7.5/325MG 1 TAB TABLET PO PRN (21:40)
[2019-04-07 22:56] VITALS: BP 130/66
[2019-04-08 03:25] VITALS: BP 122/56
[2019-04-08 04:04] LABS: HEMATOCRIT 31.8 % (36.0-47.0); HEMOGLOBIN 10.8 g/dL (12.0-15.5); RED BLOOD COUNT 3.59 x10^6/uL (3.50-5.40); RED CELL DISTRIBUTION WIDTH 14.6 % (11.5-14.5)
[2019-04-08 04:16] LABS: CALCIUM 9.3 mg/dL (8.5-10.1); CREATININE 1.3 mg/dL (0.6-1.0); GFR 39.3; POTASSIUM 4.2 mmol/L (3.5-5.1)
[2019-04-08 07:00] VITALS: BP 115/55
--- NOTE | 2019-04-08 08:46 | CARD ---
MR#: [id number] Date of Study: 04/07/2019 Ordering Physician: NOEMI AYERS, Referring Physician: NOEMI AYERS, Tech: Nataly Torres APPROVED REPORT EXAM: Two-dimensional and M-mode echocardiogram with Doppler and color Doppler. Other Information Quality : AverageHR: 61bpm INDICATION Arrhythmia 2D DIMENSIONS RVDd3.3 (2.9-3.5cm)Left Atrium(2D)3.6 (1.6-4.0cm) IVSd1.4 (0.7-1.1cm)Aortic Root(2D)3.3 (2.0-3.7cm) LVDd4.8 (3.9-5.9cm)LVOT Diameter2.2 (1.8-2.4cm) PWd1.2 (0.7-1.1cm)LVDs3.6 (2.5-4.0cm) FS (%) 25.4 %SV54.8 ml LVEF(%)50.0 (>50%) Aortic Valve AoV Peak [place].142.2cm/sAoV VTI27.9cm AO Peak GR.8.1mmHgLVOT VTI 23.75cm AO Mean GR.5mmHg Mitral Valve MV E Fnwaltiz89.4cm/sMV E Peak Gr.5mmHg MV DECEL [id number] A Pviopyms106.2cm/s MV E Mean Gr.2mmHgE/A Ratio0.6 TDI Lateral E' P. V7.47cm/sMedial E' P. V4.29cm/s E/Lateral E'9.2E/Medial E'15.9 Tricuspid Valve TR P. Nueecetf840eq/sRAP [id number] TR Peak Gr.[id number] Pulmonary Vein S1 Qnretika85.8cm/sS2 Rsixnbjr39.78cm/s D2 Yvmcvqrt10.8cm/s LEFT VENTRICLE The left ventricle is normal size. There is moderate concentric left ventricular hypertrophy. The lef t ventricular systolic function is normal and the ejection fraction is within normal range. The Eject ion Fraction is 50%. Wall motion consistent with conduction abnormality. Otherwise, grossly normal wa ll motion. Transmitral Doppler flow pattern is Grade I-abnormal relaxation pattern. RIGHT VENTRICLE The right ventricle is normal size. There is normal right ventricular wall thickness. The right ventr icular systolic function is normal. ATRIA The left atrium size is normal. The right atrium size is normal. The interatrial septum is intact wit h no evidence for an atrial septal defect or patent foramen ovale as noted on 2-D or Doppler imaging. AORTIC VALVE The aortic valve is thickened but opens well. Doppler and Color Flow revealed no significant aortic r egurgitation. There is no significant aortic valvular stenosis. MITRAL VALVE The mitral valve is normal in structure and function. There is no evidence of mitral valve prolapse. There is no mitral valve stenosis. Doppler and Color Flow revealed no mitral valve regurgitation note d. TRICUSPID VALVE The tricuspid valve is normal in structure and function. Doppler and Color Flow revealed trace tricus pid regurgitation with an estimated PAP of 37 mm Hg There is no tricuspid valve stenosis. PULMONIC VALVE The pulmonic valve is not well visualized. Doppler and Color Flow revealed no pulmonic valvular regur gitation. There is no pulmonic valvular stenosis. GREAT VESSELS The aortic root is normal in size. The IVC is normal in size and collapses >50% with inspiration. PERICARDIAL EFFUSION There is no evidence of significant pericardial effusion. Critical Notification Critical Value: No <Conclusion> The left ventricular systolic function is normal and the ejection fraction is within normal range. Th e Ejection Fraction is 50%. Wall motion consistent with conduction abnormality. Otherwise, grossly normal wall motion. Doppler and Color Flow revealed trace tricuspid regurgitation with an estimated PAP of 37 mm Hg Signed by : Alex Tilley, Electronically Approved : 04/08/2019 08:45:25
[2019-04-08] MEDS: SENNOSIDES/DOCUSATE 8.6/50MG TABLET. PO SCH (09:00)
[2019-04-08] MEDS: POLYETHYLENE GLYCOL 3350 17 GM PACKET. PO SCH (09:00)
[2019-04-08] MEDS: MULTIVITAMIN with MINERAL TABLET. PO SCH (09:00)
[2019-04-08] MEDS: amLODIPine BESYLATE 5 MG TABLET PO SCH (09:12)
[2019-04-08] MEDS: APIXABAN 5 MG TABLET. PO SCH (09:12)
[2019-04-08] MEDS: FERROUS SULFATE 325 MG TABLET. PO SCH ×3 (09:12→16:28)
[2019-04-08] MEDS: LISINOPRIL 20 MG TABLET PO SCH (09:12)
[2019-04-08] MEDS: LACTOBACILLUS RHAMNOSUS GG 1 CAPSULE. PO SCH (09:12)
[2019-04-08] MEDS: cloNIDine HCL 0.1 MG TABLET PO SCH (09:13)
--- NOTE | 2019-04-08 09:16 | PDOC ---
PROGRESS NOTES Chief Complaint Chief Complaint A/P: Extensive deep venous thrombosis. Occlusive DVT in the entire left lower extremity venous system from the common femoral vein down to the segmental and visualized calf veins. bradycardia NAKIA admitted. Anticoagulation, Eliquis 10mg BID for 7 days, then 5mg BID for 3 months consulted Vascular Surgery. No surgical intervention recommended. physical therapy, occupational therapy, IV hydration, full code, p.r.n. fentanyl. Trend labs, lower extremity arterial studies. cvc bed RENAL US Consulted nephrology, may need to hold lisinopril reduce clonidine dose Prognosis guarded. No surgical intervention recommended. consult Hematology. History of Present Illness History of Present Illness Ms Hansen is an 83 yo female w/ PMHx HTN, Hyperlipidemia,osteoarthritis admitted for complains of left leg pain. She lives with her daughter. Apparently her legs particularly her left leg has been more swollen with some redness. She has limited mobility and sedentary. No hx of PE, CAD or arrhythmia. Denied any chest pain, SOA, or palpitations. NO recent falls or injury, but has had fractures in this leg previously. Found with extensive DVT. Started on eliquis. Consults: Vascular surgery, cardiology, hematology/oncology, nephrology 04/06: Bladder US with retention post-void. Had a large BM. Kwan placed 04/07 WEAKNESS slow to resolve cont eliquis 10mg po bid x 7 days, then 5 mg bid x 3 months. PT/OT recommend SNF Still feeling weak today. No CP or SOB. Therapy recommending SNF Vitals Vitals Vital Signs Date Time Temp Pulse Resp B/P (MAP) Pulse Ox O2 Delivery O2 Flow Rate FiO2 04/08/19 07:00 98.1 59 18 115/55 (75) 96 Room Air 98.1 Physical Exam General: Alert, Oriented X3, Cooperative, mild distress Heart: Regular rate, Normal S2 Abdomen: Normal bowel sounds Extremities: No cyanosis, Other (2+ RLE and 3+ to LLE with petechial flat lesions) Skin: No breakdown Labs LABS Laboratory Tests Test 04/08/19 03:35 White Blood Count 6.0 x10^3/uL (4.0-11.0) Red Blood Count 3.59 x10^6/uL (3.50-5.40) Hemoglobin 10.8 g/dL (12.0-15.5) Hematocrit 31.8 % (36.0-47.0) Mean Corpuscular Volume 89 fL (79-100) Mean Corpuscular Hemoglobin 30 pg (25-35) Mean Corpuscular Hemoglobin Concent 34 g/dL (31-37) Red Cell Distribution Width 14.6 % (11.5-14.5) Platelet Count 195 x10^3/uL (140-400) Sodium Level 141 mmol/L (136-145) Potassium Level 4.2 mmol/L (3.5-5.1) Chloride Level 108 mmol/L (98-107) Carbon Dioxide Level 25 mmol/L (21-32) Anion Gap 8 (6-14) Blood Urea Nitrogen 35 mg/dL (7-20) Creatinine 1.3 mg/dL (0.6-1.0) Estimated GFR (Cockcroft-Gault) 39.3 Glucose Level 115 mg/dL (70-99) Calcium Level 9.3 mg/dL (8.5-10.1) Assessment and Plan Assessmemt and Plan Problems Medical Problems: (1) DVT (deep venous thrombosis) Status: Acute Comment Review of Relevant I have reviewed the following items harriett (where applicable) has been applied. Labs Laboratory Tests Test 04/07/19 04:45 04/08/19 03:35 White Blood Count 5.6 x10^3/uL (4.0-11.0) 6.0 x10^3/uL (4.0-11.0) Red Blood Count 3.47 x10^6/uL (3.50-5.40) 3.59 x10^6/uL (3.50-5.40) Hemoglobin 10.6 g/dL (12.0-15.5) 10.8 g/dL (12.0-15.5) Hematocrit 30.9 % (36.0-47.0) 31.8 % (36.0-47.0) Mean Corpuscular Volume 89 fL (79-100) 89 fL (79-100) Mean Corpuscular Hemoglobin 31 pg (25-35) 30 pg (25-35) Mean Corpuscular Hemoglobin Concent 34 g/dL (31-37) 34 g/dL (31-37) Red Cell Distribution Width 14.7 % (11.5-14.5) 14.6 % (11.5-14.5) Platelet Count 183 x10^3/uL (140-400) 195 x10^3/uL (140-400) Neutrophils (%) (Auto) 58 % (31-73) Lymphocytes (%) (Auto) 27 % (24-48) Monocytes (%) (Auto) 11 % (0-9) Eosinophils (%) (Auto) 3 % (0-3) Basophils (%) (Auto) 1 % (0-3) Neutrophils # (Auto) 3.2 x10^3/uL (1.8-7.7) Lymphocytes # (Auto) 1.5 x10^3/uL (1.0-4.8) Monocytes # (Auto) 0.6 x10^3/uL (0.0-1.1) Eosinophils # (Auto) 0.2 x10^3/uL (0.0-0.7) Basophils # (Auto) 0.1 x10^3/uL (0.0-0.2) Sodium Level 141 mmol/L (136-145) 141 mmol/L (136-145) Potassium Level 3.8 mmol/L (3.5-5.1) 4.2 mmol/L (3.5-5.1) Chloride Level 109 mmol/L (98-107) 108 mmol/L (98-107) Carbon Dioxide Level 25 mmol/L (21-32) 25 mmol/L (21-32) Anion Gap 7 (6-14) 8 (6-14) Blood Urea Nitrogen 32 mg/dL (7-20) 35 mg/dL (7-20) Creatinine 1.3 mg/dL (0.6-1.0) 1.3 mg/dL (0.6-1.0) Estimated GFR (Cockcroft-Gault) 39.3 39.3 Glucose Level 105 mg/dL (70-99) 115 mg/dL (70-99) Calcium Level 9.5 mg/dL (8.5-10.1) 9.3 mg/dL (8.5-10.1) Phosphorus Level 3.2 mg/dL (2.6-4.7) Albumin 2.5 g/dL (3.4-5.0) Laboratory Tests Test 04/08/19 03:35 White Blood Count 6.0 x10^3/uL (4.0-11.0) Red Blood Count 3.59 x10^6/uL (3.50-5.40) Hemoglobin 10.8 g/dL (12.0-15.5) Hematocrit 31.8 % (36.0-47.0) Mean Corpuscular Volume 89 fL (79-100) Mean Corpuscular Hemoglobin 30 pg (25-35) Mean Corpuscular Hemoglobin Concent 34 g/dL (31-37) Red Cell Distribution Width 14.6 % (11.5-14.5) Platelet Count 195 x10^3/uL (140-400) Sodium Level 141 mmol/L (136-145) Potassium Level 4.2 mmol/L (3.5-5.1) Chloride Level 108 mmol/L (98-107) Carbon Dioxide Level 25 mmol/L (21-32) Anion Gap 8 (6-14) Blood Urea Nitrogen 35 mg/dL (7-20) Creatinine 1.3 mg/dL (0.6-1.0) Estimated GFR (Cockcroft-Gault) 39.3 Glucose Level 115 mg/dL (70-99) Calcium Level 9.3 mg/dL (8.5-10.1) Medications Current Medications Heparin Sodium/ Dextrose 250 ml @ 0 mls/hr CONT PRN IV PER PROTOCOL Last administered on 04/05/19at 17:31; Start 04/02/19 at 20:15; Stop 04/06/19 at 12:19 ; Status DC Heparin Sodium (Porcine) (Heparin Sodium) 2,450 unit PRN Q6HRS PRN IV FOR UFH LEVEL LESS THAN 0.2; Start 04/02/19 at 20:15; Stop 04/06/19 at 12:20; Status DC Heparin Sodium (Porcine) (Heparin Sodium) 1,200 unit PRN Q6HRS PRN IV FOR UFH LEVEL 0.2 - 0.29 Last administered on 04/05/19at 06:47; Start 04/02/19 at 20:15; Stop 04/06/19 at 12:20; Status DC Ondansetron HCl (Zofran) 4 mg PRN Q8HRS PRN IV NAUSEA/VOMITING; Start 04/02/19 at 20:30; Stop 04/03/19 at 20:29; Status DC Fentanyl Citrate (Fentanyl 2ml Vial) 50 mcg PRN Q1HR PRN IV PAIN; Start 04/02/19 at 20:30; Stop 04/03/19 at 20:29; Status DC Heparin Sodium (Porcine) (Heparin Sodium) 6,500 unit 1X ONCE IV Last administered on 04/02/19 21:27; Start 04/02/19 at 21:15; Stop 04/02/19 at 21: 16; Status DC Amlodipine Besylate (Norvasc) 5 mg BID PO Last administered on 04/07/19 21:47; Start 04/03/19 at 09:00 Atorvastatin Calcium (Lipitor) 40 mg HS PO Last administered on 04/07/19 21:39; Start 04/03/19 at 21:00 Clonidine HCl (Catapres) 0.2 mg DAILY PO Last administered on 04/03/19 08:47; Start 04/03/19 at 09:00; Stop 04/04/19 at 14:56; Status DC Clopidogrel Bisulfate (Plavix) 75 mg DAILY PO Last administered on 04/07/19 09:28; Start 04/03/19 at 09:00; Stop 04/07/19 at 13:41; Status DC Ergocalciferol (Vitamin D2) 100,000 unit WEEKLY PO ; Start 04/09/19 at 09:00 Ferrous Sulfate (Feosol) 325 mg TID PRN PRN PO IRON REPLACEMENT; Start 04/02/19 at 23:30; Stop 04/07/19 at 09:18; Status DC Hydralazine HCl (Apresoline) 50 mg BID PO Last administered on 04/07/19 21:40; Start 04/03/19 at 09:00 Acetaminophen/ Hydrocodone Bitart (Lortab 7.5/325) 1 tab PRN Q3HRS PRN PO PAIN Last administered on 04/07/19 21:40; Start 04/02/19 at 23:30 Lisinopril (Prinivil) 20 mg BID PO Last administered on 04/07/19 21:39; Start 04/03/19 at 09:00 Polyethylene Glycol (miraLAX PACKET) 17 gm DAILY PO Last administered on 04/07/19 09:27; Start 04/03/19 at 09:00 Senna/Docusate Sodium (Senna Plus) 1 tab DAILY PO Last administered on 04/07/19 09:28; Start 04/03/19 at 09:00 Celecoxib (CeleBREX) 200 mg 1X ONCE PO Last administered on 04/03/19at 00:07; Start 04/02/19 at 23:45; Stop 04/02/19 at 23:49; Status DC Multivitamins (Thera M Plus) 1 tab DAILY PO Last administered on 04/07/19 09:28; Start 04/03/19 at 09:00 Hydralazine HCl (Apresoline Inj) 10 mg PRN Q6HRS PRN IVP ELEVATED BP, SEE COMMENTS; Start 04/02/19 at 23:45 Ciprofloxacin (Cipro) 500 mg BID PO Last administered on 04/05/19 08:25; Start 04/03/19 at 09:00; Stop 04/05/19 at 14:15; Status DC Ciprofloxacin (Cipro) 500 mg 1X ONCE PO Last administered on 04/03/19at 00:08; Start 04/02/19 at 23:45; Stop 04/02/19 at 23:46; Status DC Hydralazine HCl (Apresoline) 50 mg 1X ONCE PO Last administered on 04/03/19at 00:08; Start 04/02/19 at 23:45; Stop 04/02/19 at 23:46; Status DC Info (Anti-Coagulation Monitoring By Pharmacy) 1 each PRN DAILY PRN MC SEE COMMENTS Last administered on 04/07/19 11:25; Start 04/03/19 at 15:00 Lactobacillus Rhamnosus (Culturelle) 1 cap BID PO Last administered on 04/07/19at 21:38; Start 04/03/19 at 21:00 Clonidine HCl (Catapres) 0.1 mg DAILY PO Last administered on 04/07/19 09:27; Start 04/04/19 at 15:00 Tamsulosin HCl (Flomax) 0.4 mg 1X ONCE PO Last administered on 04/05/19 21:43; Start 04/05/19 at 20:00; Stop 04/05/19 at 20:01; Status DC Apixaban (Eliquis) 10 mg BID PO Last administered on 04/07/19 21:38; Start 04/06/19 at 12:00; Stop 04/12/19 at 21:01 Ferrous Sulfate (Feosol) 325 mg TIDWMEALS PO Last administered on 04/07/19at 16:28; Start 04/07/19 at 12:00 Apixaban (Eliquis) 5 mg BID PO ; Start 04/13/19 at 09:00 Active Scripts Active Hydrocodone-Apap 7.5-325 (Hydrocodone Bit/Acetaminophen) 1 Each Tablet 1 Tab PO PRN Q3HRS PRN 30 Days Senna-Time S Tablet (Sennosides/Docusate Sodium) 1 Each Tablet 1 Tab PO DAILY 30 Days Reported Celebrex (Celecoxib) 200 Mg Capsule 1 Cap PO 1X Coumadin (Warfarin Sodium) 5 Mg Tablet 1 Tab PO 1X Multivitamins (Multivitamin) 1 Each Capsule 1 Each PO DAILY Ferrous Sulfate 325 Mg Tablet 325 Mg PO TID PRN Miralax (Polyethylene Glycol 3350) 17 Gm Powd.pack 1 Pkt PO DAILY Catapres (Clonidine Hcl) 0.1 Mg Tablet 0.2 Mg PO DAILY Vitamin D2 (Ergocalciferol (Vitamin D2)) 50,000 Unit Capsule 100,000 Unit PO WEEKLY Lisinopril 20 Mg Tablet 20 Mg PO BID Hydralazine Hcl 50 Mg Tablet 50 Mg PO BID Clopidogrel (Clopidogrel Bisulfate) 75 Mg Tablet 75 Mg PO DAILY Amlodipine Besylate 5 Mg Tablet 5 Mg PO BID Atorvastatin Calcium 40 Mg Tablet 40 Mg PO HS Vitals/I & O Vital Sign - Last 24 Hours 04/07/19 04/07/19 04/07/19 04/07/19 09:27 09:27 09:27 09:28 Pulse 77 77 77 77 B/P (MAP) 123/60 123/60 123/60 123/60 04/07/19 04/07/19 04/07/19 04/07/19 10:15 14:51 19:44 20:00 Temp 98.4 98.2 98.4 98.4 98.2 98.4 Pulse 68 53 70 Resp 16 16 16 B/P (MAP) 120/56 (77) 143/65 (91) 127/57 (80) Pulse Ox 97 96 97 O2 Delivery Room Air Room Air Room Air Room Air 04/07/19 04/07/19 04/07/19 04/07/19 21:39 21:40 21:40 21:47 Pulse 70 70 70 Resp 18 B/P (MAP) 127/57 127/57 127/57 Pulse Ox 97 O2 Delivery Room Air 04/07/19 04/07/19 04/08/19 04/08/19 22:40 22:56 03:25 07:00 Temp 98.0 98.1 98.1 98.0 98.1 98.1 Pulse 66 60 59 Resp 18 16 18 18 B/P (MAP) 130/66 (87) 122/56 (78) 115/55 (75) Pulse Ox 97 98 97 96 O2 Delivery Room Air Room Air Room Air Room Air Intake and Output 04/07/19 04/07/19 04/08/19 15:00 23:00 07:00 Intake Total 550 ml 50 ml Output Total 250 ml 300 ml Balance 300 ml -250 ml SHEILA BOLIVAR MD Apr 08, 2019 09:16
--- NOTE | 2019-04-08 09:49 | PDOC ---
SUBJECTIVE Subjective S: doing ok, PT was hard for her O: Gen: NAD, sitting in chair Ext: LLE swelling improved, min erythema Labs: Hb 10.6, plt nl on recent check A/P: She is an 83-year-old female, with new diagnosis of left lower extremity DVT, and has been evaluated by vascular surgery with no surgical intervention needed improving on apixaban LLE DVT: cont apixaban 10 mg twice a day 1 week followed by 5 mg twice a day 3 months and she can follow-up with us afterwards to discuss duration after initial 3 months, could use lower extremity compression stockings as tolerated Cardiac history: Defer to primary, off plavix while on AC Renal insuff: rec avoiding NSAIDs disposition: After continued clinical improvement, may need rehab? Thank you kindly. OBJECTIVE Vital Signs Vital Signs Date Time Temp Pulse Resp B/P (MAP) Pulse Ox O2 Delivery O2 Flow Rate FiO2 04/08/19 09:13 59 115/55 04/08/19 09:13 59 115/55 04/08/19 09:12 59 115/55 04/08/19 09:12 59 115/55 04/08/19 07:00 98.1 59 18 115/55 (75) 96 Room Air 98.1 04/08/19 03:25 98.1 60 18 122/56 (78) 97 Room Air 98.1 04/07/19 22:56 98.0 66 16 130/66 (87) 98 Room Air 98.0 04/07/19 22:40 18 97 Room Air 04/07/19 21:47 70 127/57 04/07/19 21:40 18 97 Room Air 04/07/19 21:40 70 127/57 04/07/19 21:39 70 127/57 04/07/19 20:00 Room Air 04/07/19 19:44 98.4 70 16 127/57 (80) 97 Room Air 98.4 04/07/19 14:51 98.2 53 16 143/65 (91) 96 Room Air 98.2 04/07/19 10:15 98.4 68 16 120/56 (77) 97 Room Air 98.4 I & O Intake and Output 04/08/19 07:00 Intake Total 600 ml Output Total 550 ml Balance 50 ml Intake Oral 600 ml Output Urine Total 550 ml COMMENT Lab Laboratory Tests Test 04/08/19 03:35 White Blood Count 6.0 x10^3/uL (4.0-11.0) Red Blood Count 3.59 x10^6/uL (3.50-5.40) Hemoglobin 10.8 g/dL (12.0-15.5) Hematocrit 31.8 % (36.0-47.0) Mean Corpuscular Volume 89 fL (79-100) Mean Corpuscular Hemoglobin 30 pg (25-35) Mean Corpuscular Hemoglobin Concent 34 g/dL (31-37) Red Cell Distribution Width 14.6 % (11.5-14.5) Platelet Count 195 x10^3/uL (140-400) Sodium Level 141 mmol/L (136-145) Potassium Level 4.2 mmol/L (3.5-5.1) Chloride Level 108 mmol/L (98-107) Carbon Dioxide Level 25 mmol/L (21-32) Anion Gap 8 (6-14) Blood Urea Nitrogen 35 mg/dL (7-20) Creatinine 1.3 mg/dL (0.6-1.0) Estimated GFR (Cockcroft-Gault) 39.3 Glucose Level 115 mg/dL (70-99) Calcium Level 9.3 mg/dL (8.5-10.1) MIKAELA MULLEN MD Apr 08, 2019 09:49
[2019-04-08] MEDS ORDERED: HYDR-2765 PO (10:30)
[2019-04-08] MEDS ORDERED: APIX5TAB PO (10:30)
--- NOTE | 2019-04-08 10:34 | SNU/HH DC ---
DISCHARGE ORDERS DISCHARGE INFORMATION: DISCHARGE DATE: Apr 08, 2019 FINAL DIAGNOSIS Problems Medical Problems: (1) DVT (deep venous thrombosis) Status: Acute CONDITION ON DISCHARGE: Stable CODE STATUS: Code Status: Full NURSING HOME: SNF STAY <30 DAYS: Yes POST DISCHARGE ORDERS: ACTIVITY ORDERS: Activity as tolerated WEIGHT BEARING STATUS: Full weight bearing BATHING ORDERS: Shower-keep dressing dry DIET AFTER DISCHARGE: Cardiac WOUND/INCISION CARE: Ice to area for comfort, Keep wound/cast CDI, Do not change dressing CHECKS AFTER DISCHARGE: CHECKS AFTER DISCHARGE: Check blood press - daily TREATMENT/EQUIPMENT ORDERS: ADAPTIVE EQUIPMENT NEEDED: None Physical Therapy For: Evalulation/Treatment Occupational Therapy For: Evaluation/Treatment DISCHARGE MEDICATIONS: Home Meds Active Scripts Apixaban (ELIQUIS) 5 Mg Tablet, 5 MG PO BID for Left leg DVT for 30 Days, #74 TAB 2 Refills Prov:SHEILA BOLIVAR MD 04/08/19 Hydrocodone Bit/Acetaminophen (HYDROCODONE-APAP 7.5-325 ) 1 Each Tablet, 1 TAB PO PRN Q6HRS PRN for PAIN for 6 Days, #20 / 0 Refills Prov:SHEILA BOLIVAR MD 04/08/19 Sennosides/Docusate Sodium (SENNA-TIME S TABLET) 1 Each Tablet, 1 TAB PO DAILY for 30 Days, / 0 Refills Prov:MARIO ALBERTO FERNANDEZ MD 04/09/15 Reported Medications Celecoxib (CELEBREX) 200 Mg Capsule, 1 CAP PO 1X, #30 CAP 2 Refills 04/06/15 Multivitamin (MULTIVITAMINS) 1 Each Capsule, 1 EACH PO DAILY 03/19/15 Ferrous Sulfate (FERROUS SULFATE) 325 Mg Tablet, 325 MG PO TID PRN 03/19/15 Polyethylene Glycol 3350 (MIRALAX) 17 Gm Powd.pack, 1 PKT PO DAILY, PKT 03/19/15 Clonidine Hcl (CATAPRES) 0.1 Mg Tablet, 0.2 MG PO DAILY for ELEVATED BP, SEE COMMENTS, TAB 03/19/15 Ergocalciferol (Vitamin D2) (VITAMIN D2) 50,000 Unit Capsule, 651525 UNIT PO WEEKLY 03/19/15 Lisinopril (LISINOPRIL) 20 Mg Tablet, 20 MG PO BID for FOR HYPERTENSION, #30 TAB 0 Refills 03/19/15 Hydralazine Hcl (HYDRALAZINE HCL) 50 Mg Tablet, 50 MG PO BID, TAB 03/19/15 Amlodipine Besylate (AMLODIPINE BESYLATE) 5 Mg Tablet, 5 MG PO BID, TAB 03/19/15 Atorvastatin Calcium (ATORVASTATIN CALCIUM) 40 Mg Tablet, 40 MG PO HS for FOR CHOLESTEROL, #30 TAB 0 Refills 03/19/15 Discontinued Reported Medications Warfarin Sodium (COUMADIN) 5 Mg Tablet, 1 TAB PO 1X, #90 TAB 1 Refill 04/06/15 Clopidogrel Bisulfate (CLOPIDOGREL) 75 Mg Tablet, 75 MG PO DAILY for TO PREVENT BLOOD CLOTS, #30 TAB 0 Refills 03/19/15 SHEILA BOLIVAR MD Apr 08, 2019 10:34
[2019-04-08 11:15] VITALS: BP 130/59
--- NOTE | 2019-04-08 12:00 | NUR ---
Kwan catheter removed pt tolerated well, 200 mL of urine emptied from bag at time of removal
--- NOTE | 2019-04-08 12:38 | NUR ---
SS following for discharge planning. Discharge orders for long-term unit received. SS revisited with pt and discussed with pt's son. Both pt and pt's son continuing to refuse long-term unit and home healthcare. SS discussed with Dr. Mackay. Pt will discharge to home today with son. Pt's son reported that he will transport pt to home at 1600.
--- NOTE | 2019-04-08 13:00 | PDOC ---
Renal-Progress Notes Subjective Notes Notes STABLE History of Present Illness Hx of present illness NO NEW COMPLAINTS Vitals Vitals Vital Signs Date Time Temp Pulse Resp B/P (MAP) Pulse Ox O2 Delivery O2 Flow Rate FiO2 04/08/19 11:15 98.2 54 18 130/59 (82) 96 Room Air 98.2 Weight Weight [ ] I.O. Intake and Output Intake and Output 04/08/19 07:00 Intake Total 600 ml Output Total 550 ml Balance 50 ml Intake Oral 600 ml Output Urine Total 550 ml Labs Labs Laboratory Tests Test 04/08/19 03:35 White Blood Count 6.0 x10^3/uL (4.0-11.0) Red Blood Count 3.59 x10^6/uL (3.50-5.40) Hemoglobin 10.8 g/dL (12.0-15.5) Hematocrit 31.8 % (36.0-47.0) Mean Corpuscular Volume 89 fL (79-100) Mean Corpuscular Hemoglobin 30 pg (25-35) Mean Corpuscular Hemoglobin Concent 34 g/dL (31-37) Red Cell Distribution Width 14.6 % (11.5-14.5) Platelet Count 195 x10^3/uL (140-400) Sodium Level 141 mmol/L (136-145) Potassium Level 4.2 mmol/L (3.5-5.1) Chloride Level 108 mmol/L (98-107) Carbon Dioxide Level 25 mmol/L (21-32) Anion Gap 8 (6-14) Blood Urea Nitrogen 35 mg/dL (7-20) Creatinine 1.3 mg/dL (0.6-1.0) Estimated GFR (Cockcroft-Gault) 39.3 Glucose Level 115 mg/dL (70-99) Calcium Level 9.3 mg/dL (8.5-10.1) Review of Systems Constitutional: yes: weakness, alert Ears/Nose/Throat: Yes: no symptom reported Eyes: Yes: no symptom reported Pulmonary: Yes no symptom reported Cardiovascular: Yes no symptom reported Gastrointestional: Yes: constipation Genitourinary: Yes: retention Musculoskeletal: Yes: muscle stiffness Skin: Yes no symptom reported Psychiatric/Neurological: Yes: no symptom reported Endocrine: Yes: no symptom reported Physical Exam General Appearance: no apparent distress Skin: warm Respiratory: decreased breath sounds Heart: S1S2 Abdomen: soft Genitourinary: bladder flat Extremities: pulses present Neurology: alert Musculoskeletal: Osteoarthritis Assessment Assessment IMP NAKIA-IMPROVED WITH CR DOWN TO 1.3 MAY HAVE SOME CKD STAGE 3-SUSPECT CR AT BASELINE BILATERAL RENAL CYSTS URINARY RETENTION-HAD SARAH - JUST PULLED TODAY DVT PLAN LABS IN AM CONT ANURAG-I ANTICOAGULATION VERONICA GARCIA MD Apr 08, 2019 13:00
[2019-04-08 14:44] VITALS: BP 117/57
--- NOTE | 2019-04-08 15:35 | SNU/HH DC ---
DISCHARGE WITH HOME HEALTH DISCHARGE INFORMATION: Discharge Date: Apr 08, 2019 Final Diagnosis: Problems Medical Problems: (1) DVT (deep venous thrombosis) Status: Acute Condition on Discharge: Stable CODE STATUS: Code Status: Full HOME HEALTH: Face to Face: I certify this patient is under my care and that I, or a nurse practitioner or physician's digital marketing assistant working with me, had a face to face encounter that meets the physician face to face encounter requirements with this patient on 04/08/2019. Medical Complications: DJD, HTN Assisted For: Assess & Educate Safety, Medication Management RN For Eval/Treatment: Yes Physical Therapy For: Evalulation/Treatment Occupational Therapy For: Evaluation/Treatment Pt Meets Homebound Status: Extreme weakness w/ amb., Limited distance walking POST DISCHARGE ORDERS: Activity Instructions for Disc: Activity as tolerated Weight Bearing Status after Di: Full weight bearing Bathing Instructions: Shower-keep dressing dry DIET AFTER DISCHARGE: Cardiac Wound/Incision Care: No wound care needed CHECKS AFTER DISCHARGE: Checks after discharge: Check blood press - daily, Check your Temp as needed FOLLOW-UP: Follow Up With: Primary care provider in 2 weeks TREATMENT/EQUIPMENT ORDERS: Adaptive Equipment Issued: Wheelchair CERTIFICATION STATEMENT: Certification Statement: Certification Statement: Based on the above finding, I certify that this patient is confined to the home and needs intermittent correction care, physical therapy and/or speech therapy, or continues to need occupational therapy.~ This patient is under my care, and I have initiated the establishment of the plan of care.~ This patient will be followed by myself or a community physician who will periodically review the plan of care. Home Meds Active Scripts Apixaban (ELIQUIS) 5 Mg Tablet, 5 MG PO BID for Left leg DVT for 30 Days, #74 TAB 2 Refills Prov:SHEILA BOLIVAR MD 04/08/19 Hydrocodone Bit/Acetaminophen (HYDROCODONE-APAP 7.5-325 ) 1 Each Tablet, 1 TAB PO PRN Q6HRS PRN for PAIN for 6 Days, #20 / 0 Refills Prov:SHEILA BOLIVAR MD 04/08/19 Sennosides/Docusate Sodium (SENNA-TIME S TABLET) 1 Each Tablet, 1 TAB PO DAILY for 30 Days, / 0 Refills Prov:MARIO ALBERTO FERNANDEZ MD 04/09/15 Reported Medications Celecoxib (CELEBREX) 200 Mg Capsule, 1 CAP PO 1X, #30 CAP 2 Refills 04/06/15 Multivitamin (MULTIVITAMINS) 1 Each Capsule, 1 EACH PO DAILY 03/19/15 Ferrous Sulfate (FERROUS SULFATE) 325 Mg Tablet, 325 MG PO TID PRN 03/19/15 Polyethylene Glycol 3350 (MIRALAX) 17 Gm Powd.pack, 1 PKT PO DAILY, PKT 03/19/15 Clonidine Hcl (CATAPRES) 0.1 Mg Tablet, 0.2 MG PO DAILY for ELEVATED BP, SEE COMMENTS, TAB 03/19/15 Ergocalciferol (Vitamin D2) (VITAMIN D2) 50,000 Unit Capsule, 436566 UNIT PO WEEKLY 03/19/15 Lisinopril (LISINOPRIL) 20 Mg Tablet, 20 MG PO BID for FOR HYPERTENSION, #30 TAB 0 Refills 03/19/15 Hydralazine Hcl (HYDRALAZINE HCL) 50 Mg Tablet, 50 MG PO BID, TAB 03/19/15 Amlodipine Besylate (AMLODIPINE BESYLATE) 5 Mg Tablet, 5 MG PO BID, TAB 03/19/15 Atorvastatin Calcium (ATORVASTATIN CALCIUM) 40 Mg Tablet, 40 MG PO HS for FOR CHOLESTEROL, #30 TAB 0 Refills 03/19/15 Discontinued Reported Medications Warfarin Sodium (COUMADIN) 5 Mg Tablet, 1 TAB PO 1X, #90 TAB 1 Refill 04/06/15 Clopidogrel Bisulfate (CLOPIDOGREL) 75 Mg Tablet, 75 MG PO DAILY for TO PREVENT BLOOD CLOTS, #30 TAB 0 Refills 03/19/15 SHEILA BOLIVAR MD Apr 08, 2019 15:35
--- NOTE | 2019-04-08 15:39 | PDOC3 ---
Discharge Summary Visit Information Date of Admission: Apr 02, 2019 Date of Discharge: Apr 08, 2019 Admitting Diagnosis: DVT Final Diagnosis Problems Medical Problems: (1) DVT (deep venous thrombosis) Status: Acute Brief Hospital Course Allergies Allergies Coded Allergies Type Severity Reaction Last Updated Verified meperidine Adverse Reaction Intermediate Nausea and Vomiting 04/28/15 Yes Vital Signs Vital Signs Date Time Temp Pulse Resp B/P (MAP) Pulse Ox O2 Delivery O2 Flow Rate FiO2 04/08/19 14:44 98.2 60 18 117/57 (77) 98 Room Air 98.2 Lab Results Laboratory Tests Test 04/07/19 04:45 04/08/19 03:35 White Blood Count 5.6 x10^3/uL (4.0-11.0) 6.0 x10^3/uL (4.0-11.0) Red Blood Count 3.47 x10^6/uL (3.50-5.40) 3.59 x10^6/uL (3.50-5.40) Hemoglobin 10.6 g/dL (12.0-15.5) 10.8 g/dL (12.0-15.5) Hematocrit 30.9 % (36.0-47.0) 31.8 % (36.0-47.0) Mean Corpuscular Volume 89 fL (79-100) 89 fL (79-100) Mean Corpuscular Hemoglobin 31 pg (25-35) 30 pg (25-35) Mean Corpuscular Hemoglobin Concent 34 g/dL (31-37) 34 g/dL (31-37) Red Cell Distribution Width 14.7 % (11.5-14.5) 14.6 % (11.5-14.5) Platelet Count 183 x10^3/uL (140-400) 195 x10^3/uL (140-400) Neutrophils (%) (Auto) 58 % (31-73) Lymphocytes (%) (Auto) 27 % (24-48) Monocytes (%) (Auto) 11 % (0-9) Eosinophils (%) (Auto) 3 % (0-3) Basophils (%) (Auto) 1 % (0-3) Neutrophils # (Auto) 3.2 x10^3/uL (1.8-7.7) Lymphocytes # (Auto) 1.5 x10^3/uL (1.0-4.8) Monocytes # (Auto) 0.6 x10^3/uL (0.0-1.1) Eosinophils # (Auto) 0.2 x10^3/uL (0.0-0.7) Basophils # (Auto) 0.1 x10^3/uL (0.0-0.2) Sodium Level 141 mmol/L (136-145) 141 mmol/L (136-145) Potassium Level 3.8 mmol/L (3.5-5.1) 4.2 mmol/L (3.5-5.1) Chloride Level 109 mmol/L (98-107) 108 mmol/L (98-107) Carbon Dioxide Level 25 mmol/L (21-32) 25 mmol/L (21-32) Anion Gap 7 (6-14) 8 (6-14) Blood Urea Nitrogen 32 mg/dL (7-20) 35 mg/dL (7-20) Creatinine 1.3 mg/dL (0.6-1.0) 1.3 mg/dL (0.6-1.0) Estimated GFR (Cockcroft-Gault) 39.3 39.3 Glucose Level 105 mg/dL (70-99) 115 mg/dL (70-99) Calcium Level 9.5 mg/dL (8.5-10.1) 9.3 mg/dL (8.5-10.1) Phosphorus Level 3.2 mg/dL (2.6-4.7) Albumin 2.5 g/dL (3.4-5.0) Laboratory Tests Test 04/08/19 03:35 White Blood Count 6.0 x10^3/uL (4.0-11.0) Red Blood Count 3.59 x10^6/uL (3.50-5.40) Hemoglobin 10.8 g/dL (12.0-15.5) Hematocrit 31.8 % (36.0-47.0) Mean Corpuscular Volume 89 fL (79-100) Mean Corpuscular Hemoglobin 30 pg (25-35) Mean Corpuscular Hemoglobin Concent 34 g/dL (31-37) Red Cell Distribution Width 14.6 % (11.5-14.5) Platelet Count 195 x10^3/uL (140-400) Sodium Level 141 mmol/L (136-145) Potassium Level 4.2 mmol/L (3.5-5.1) Chloride Level 108 mmol/L (98-107) Carbon Dioxide Level 25 mmol/L (21-32) Anion Gap 8 (6-14) Blood Urea Nitrogen 35 mg/dL (7-20) Creatinine 1.3 mg/dL (0.6-1.0) Estimated GFR (Cockcroft-Gault) 39.3 Glucose Level 115 mg/dL (70-99) Calcium Level 9.3 mg/dL (8.5-10.1) Brief Hospital Course Ms Hansen is an 83 yo female w/ PMHx HTN, Hyperlipidemia,osteoarthritis admitted for complains of left leg pain. She lives with her daughter. Apparently her legs particularly her left leg has been more swollen with some redness. She has limited mobility and sedentary. No hx of PE, CAD or arrhythmia. Denied any chest pain, SOA, or palpitations. NO recent falls or injury, but has had fractures in this leg previously. Found with extensive DVT. Started on eliquis. Consults: Vascular surgery, cardiology, hematology/oncology, nephrology 04/06: Bladder US with retention post-void. Had a large BM. Kwan placed. consulted Vascular Surgery. No surgical intervention recommended. 04/07 WEAKNESS slow to resolve cont eliquis 10mg po bid x 7 days, then 5 mg bid x 3 months. PT/OT recommend SNF Still feeling weak today. No CP or SOB. Therapy recommending SNF. She and her son would prefer home with home health. Problem: Extensive deep venous thrombosis Occlusive DVT in the entire left lower extremity venous system from the common femoral vein down to the segmental and visualized calf veins. Bradycardia NAKIA Greater than 30 minutes spent on d/c Discharge Information Condition at Discharge: Improved Follow Up: Weeks (1) Disposition/Orders: D/C to Home w/ HH Scheduled Amlodipine Besylate (Amlodipine Besylate) 5 Mg Tablet, 5 MG PO BID, (Reported) Entered as Reported by: ATILIO NEW on 03/19/15 7846 Last Action: Continued on 04/02/19 8296 by RAJENDRA FELDMAN Apixaban (Eliquis) 5 Mg Tablet, 5 MG PO BID for Left leg DVT for 30 Days, #74 Ref 2 Prescribed by: SHEILA BOLIVAR MD on 04/08/19 1030 Atorvastatin Calcium (Atorvastatin Calcium) 40 Mg Tablet, 40 MG PO HS for FOR CHOLESTEROL, #30 Ref 0 (Reported) Entered as Reported by: ATILIO NEW on 03/19/151538 Last Action: Continued on 04/02/192335 by RAJENDRA FELDMAN Celecoxib (Celebrex) 200 Mg Capsule, 1 CAP PO 1X, #30 Ref 2 (Reported) Entered as Reported by: LENA ESTEVEZ on 04/06/15 0637 Last Action: Converted on 04/02/192335 by RAJENDRA FELDMAN Clonidine Hcl (Catapres) 0.1 Mg Tablet, 0.2 MG PO DAILY for ELEVATED BP, SEE COMMENTS, (Reported) Entered as Reported by: ATILIO NEW on 03/19/151538 Last Action: Continued on 04/02/192335 by RAJENDRA FELDMAN Ergocalciferol (Vitamin D2) (Vitamin D2) 50,000 Unit Capsule, 100,000 UNIT PO WEEKLY, (Reported) Entered as Reported by: ATILIO NEW on 03/19/151538 Last Action: Continued on 04/02/192335 by RAJENDRA FELDMAN Ferrous Sulfate (Ferrous Sulfate) 325 Mg Tablet, 325 MG PO TID PRN, (Reported) Entered as Reported by: ATILIO NEW on 03/19/151538 Last Action: Continued on 04/02/192335 by RAJENDRA FELDMAN Hydralazine Hcl (Hydralazine Hcl) 50 Mg Tablet, 50 MG PO BID, (Reported) Entered as Reported by: ATILIO NEW on 03/19/151538 Last Action: Continued on 04/02/192335 by RAJENDRA FELDMAN Lisinopril (Lisinopril) 20 Mg Tablet, 20 MG PO BID for FOR HYPERTENSION, #30 Ref 0 (Reported) Entered as Reported by: ATILIO NEW on 03/19/151538 Last Action: Continued on 04/02/192335 by RAJENDRA FELDMAN Multivitamin (Multivitamins) 1 Each Capsule, 1 EACH PO DAILY, (Reported) Entered as Reported by: ATILIO NEW on 03/19/151538 Last Action: Converted on 04/02/192335 by RAJENDRA FELDMAN Polyethylene Glycol 3350 (Miralax) 17 Gm Powd.pack, 1 PKT PO DAILY, (Reported) Entered as Reported by: ATILIO NEW on 03/19/15 1539 Last Action: Continued on 04/02/192335 by RAJENDRA FELDMAN Sennosides/Docusate Sodium (Senna-Time S Tablet) 1 Each Tablet, 1 TAB PO DAILY for 30 Days, Ref 0 NS Prescribed by: Rakesh Reza on 04/09/15 1024 Last Action: Continued on 04/02/192335 by RAJENDRA FELDMAN Scheduled PRN Hydrocodone Bit/Acetaminophen (Hydrocodone-Apap 7.5-325 ) 1 Each Tablet, 1 TAB PO PRN Q6HRS PRN for PAIN for 6 Days, #20 Ref 0 NS Prescribed by: SHEILA BOLIVAR MD on 04/08/19 1030 Discontinued Medications Clopidogrel Bisulfate (Clopidogrel) 75 Mg Tablet, 75 MG PO DAILY for TO PREVENT BLOOD CLOTS, #30 Ref 0 (Reported) Entered as Reported by: ATILIO NEW on 03/19/15 1539 Last Action: Continued on 04/02/192335 by RAJENDRA FELDMAN Warfarin Sodium (Coumadin) 5 Mg Tablet, 1 TAB PO 1X, #90 Ref 1 (Reported) Entered as Reported by: LENA ESTEVEZ on 04/06/15 0637 SHEILA BOLIVAR MD Apr 08, 2019 15:39
--- NOTE | 2019-04-08 17:45 | NUR ---
Discharge Note: [facility] Discharge instructions and discharge home medications reviewed with Patient and a copy given. All questions have been answered and understanding verbalized. The following instructions and handouts were given: apixaban, deep vein thrombosis Patient discharged to home with home health via wheelchair.
--- NOTE | 2019-04-08 19:33 | NUR ---
RN called Ramon Ba for P500 Bed pickle pumper. Spoke with Cb. Confirmation number [id number]
[2019-04-09] MEDS ORDERED: ERGOCALCIFEROL (VITAMIN D2) 50,000 UNIT CAPSULE. PO SCH (09:00)
[2019-04-13] MEDS ORDERED: APIXABAN 5 MG TABLET. PO SCH (09:00)
== END 2019-04-08 17:45 | disposition home health service (06) | DRG 300 ==
LOC: ER 16:34 → 2 SOUTH 19:57
PROVIDERS: ADMIT Internal Medicine; ATTEND Internal Medicine
DX: I82.412 Acute embolism and thrombosis of left femoral vein (principal); N17.9 Acute kidney failure, unspecified; E78.5 Hyperlipidemia, unspecified; I12.9 Hypertensive chronic kidney disease with stage 1 through stage 4 chronic kidney disease, or unspecified chronic kidney disease; N18.3 Chronic kidney disease, stage 3 (moderate); N28.1 Cyst of kidney, acquired; Z96.641 Presence of right artificial hip joint; G89.29 Other chronic pain; M19.90 Unspecified osteoarthritis, unspecified site; R00.1 Bradycardia, unspecified; R33.9 Retention of urine, unspecified; Z79.01 Long term (current) use of anticoagulants; Z82.49 Family history of ischemic heart disease and other diseases of the circulatory system; Z86.718 Personal history of other venous thrombosis and embolism; Z88.8 Allergy status to other drugs, medicaments and biological substances; Z90.49 Acquired absence of other specified parts of digestive tract
CPT/HCPCS: 36415; 76770; 80048; 80053; 80061; 80069; 81001; 84443; 85025; 85027; 85520; 85610; 93005; 93306; 93923; 93970; 96365; 96375; 99285; A4314; J1644; 97110; 97530; 97535; G0378